=== PATIENT | female | born 1955 | race Caucasian/White ===

== ENCOUNTER 2020-07-16 19:11 | Emergency (ER) | payer MEDICARE, OTHER, SELFPAY ==
[2020-07-16 19:31] VITALS: BP 149/91; PULSE 98; RESP 19; TEMP 36.6; O2SAT 99; BMI 54.5
[2020-07-16 19:46] LABS: Apearance,Urine Clear (Clear); Bilirubin,Urine Negative (Negative); Blood, Urine Trace (Negative); Color,Urine Yellow (Yellow); Glucose,Urine (UA) Negative (Negative); Ketones,Urine Negative (Negative); PH,Urine 5.5 (5.0-8.5); Protein,Urine Trace (Negative); Specific Gravity, Urine 1.015 (1.005-1.030); Urobilinogen,Urine 0.2 EU/dl (0.2)
[2020-07-16 19:47] LABS: UTC Leukocyte Esterase,Urine 1+ (Negative); UTC Nitrate,Urine Positive (Negative)
--- NOTE | 2020-07-16 19:54 | HMH.EDUTC ---
[facility] [place] Disposition Clinical Impression: UTI (urinary tract infection) Qualifiers: Urinary tract infection type: site unspecified Hematuria presence: with hematuria Qualified Code(s): N39.0 - Urinary tract infection, site not specified Disposition: Home, Self-Care Condition on Discharge: Good Instructions: Urinary Tract Infection, DI for Urinary Tract Infection (UTI) Additional Instructions: Drink plenty of fluids. Take tylenol or ibuprofen for pain or fever. Take the medications as directed. Follow up with your regular doctor. GO TO THE ER FOR ANY WORSENING SYMPTOMS The pyridium will make your urine turn orange, this is an expected side effect. It will stain your clothes if it comes into contact with them. Follow up with the urologist (Dr. Bobo). I put in a referral but you need to call his office and make an appointment. Prescriptions: Ondansetron [Zofran 4mg ODT] 4 mg PO Q8HP PRN #20 tab.rapdis PRN Reason: Nausea Transmission Status: Received by [facility] Ciprofloxacin HCl [Cipro 500mg Tab] 500 mg PO BID 10 Days #20 tab Transmission Status: Received by [facility] Phenazopyridine HCl [Pyridium 200mg Tablet] 200 pow PO TID #6 tab Transmission Status: Received by [facility] Referrals: Ion Cm MD [Primary Care Provider] - Braulio Bobo MD [Staff Physician] - Time of Disposition: 20:34 Medical Decision Making - Medical Records Medical records reviewed: No: I reviewed the patient's medical records. - Aron Inquiry Pt receiving controlled substance: No Vital Signs: 07/16/20 19:31 07/16/20 20:23 Temperature 97.9 F 97.9 F Temperature Source Oral Pulse Rate 98 H Pulse Rate [Right Brachial] 98 H Respiratory Rate 19 19 Blood Pressure 149/91 H Blood Pressure [Right Arm] 149/91 H Blood Pressure Mean [Right Arm] 110 Blood Pressure Source [Right Arm] Automatic Cuff Blood Pressure Position [Right Arm] Sitting 02 Sat by Pulse Oximetry 99 Oxygen Delivery Method Room Air - Lab Data Lab results reviewed: Yes: I reviewed the patient's lab results. Lab Results 07/16/20 19:31: Urine Color Yellow, Urine Appearance Clear, Urine pH 5.5, Ur Specific [place] 1.015, Urine Protein Trace, Urine Glucose (UA) Negative, Urine Ketones Negative, Urine Blood Trace, Urine Nitrate Positive A, Urine Bilirubin Negative, Urine Urobilinogen 0.2, Ur Leukocyte Esterase 1+ A Orders (Tests/Meds): ED MEDICATIONS Discontinued Medications Generic Name Dose Route Start Last Admin Trade Name Jose A PRN Reason Stop Dose Admin Ceftriaxone Sodium 1 gm 07/16/20 19:59 07/16/20 20:13 Rocephin 1gm Vial IM 07/16/20 20:00 1 gm ONCE ONE Administration Protocol Lidocaine HCl 0 ml 07/16/20 19:59 07/16/20 20:13 Lidocaine 1% 10ml Mdv IM 07/16/20 20:00 2.1 ml ONCE ONE Administration Promethazine HCl 25 mg 07/16/20 20:08 07/16/20 20:13 Phenergan 25mg/Ml 1ml Vial IM 07/16/20 20:09 25 mg ONCE ONE Administration Sodium Chloride 25 ml 07/16/20 20:08 07/16/20 20:13 Sod Chlor 0.9% 25ml Bag IV 07/16/20 20:09 Not Given ONCE ONE ORDERS Category Date Time Status Urine Culture Stat Micro 07/16/20 19:30 Received [facility] [place] HPI - General Stated complaint: Vomiting, fever, chills Time Seen by Provider: 07/16/20 19:54 Mode of Arrival: Ambulatory Source of Information: Patient Limitations: No Limitations Description of Symptoms (Recalled from Triage Doc. by RN): PATIENT C/O UTI THAT SHE HAS HAD SINCE 05/29. STATES SHE HAS BEEN ON BOTH AUGMENTIN AND MICROBID BUT IT HAS NOT GOTTEN BETTER HEENT Symptoms (Recalled from RN notes): No Resp Symptoms (Recalled from RN notes): No Skin Symptoms (Recalled from RN notes): No MS Symptoms (Recalled from RN notes): No Functional Status (Recalled from RN notes): WNL - History of Present Illness Provider Complaint: She c/o dysuria and low back pain since this mornig. - Related Data Pre
[2020-07-16 20:23] VITALS: BP 149/91; PULSE 98; RESP 19; TEMP 36.6; O2SAT 99
== END 2020-07-16 20:50 | disposition home or self-care (01) ==
PROVIDERS: Emergency Provider Nurse Practitioner Family; PCP Family Medicine
DX: N30.00 Acute cystitis without hematuria (principal)
CPT/HCPCS: G0463; 81003; 87086; 87088; 87186; 96372; 99202

== ENCOUNTER → 2020-08-02 16:26 | Outpatient (CLI) | payer MEDICARE, OTHER, SELFPAY | PROVIDERS: Visit Provider Urology | DX: N39.0 Urinary tract infection, site not specified (principal) | CPT/HCPCS: 87086; 87088; 87186 ==

== ENCOUNTER → 2020-08-16 16:28 | Outpatient (CLI) | payer MEDICARE, OTHER, SELFPAY | PROVIDERS: Visit Provider Urology | DX: N39.0 Urinary tract infection, site not specified (principal) | CPT/HCPCS: 87086; 87088; 87186 ==

== ENCOUNTER 2023-07-21 21:12 | Inpatient (IN) | payer MEDICARE, OTHER, SELFPAY ==
[2023-07-21] VITALS (8 sets, daily range): BP systolic 138–162; BP diastolic 68–83; PULSE 88–100; RESP 18–20; TEMP 37.8–39.3; O2SAT 95–99; BMI 46.9
--- NOTE | 2023-07-21 21:39 | CT_ITS ---
PROCEDURE INFORMATION: Exam: CT Abdomen And Pelvis Without Contrast Exam date and time: 07/21/2023 9:57 PM Age: 68 years old Clinical indication: Abdominal pain; Additional info: Flank pain, urinary SX, sepsis TECHNIQUE: Imaging protocol: Computed tomography of the abdomen and pelvis without contrast. Radiation optimization: All CT scans at this facility use at least one of these dose optimization techniques: automated exposure control; mA and/or kV adjustment per patient size (includes targeted exams where dose is matched to clinical indication); or iterative reconstruction. REPORTING DATA: Count of CT and Cardiac NM exams in prior 12 months: This patient has received 0 known CTs and 0 known cardiac nuclear medicine studies in the 12 months prior to the current study. COMPARISON: CR CXR CHEST(2 VIEWS-NOT PORTABLE) 11/19/2016 3:54 PM FINDINGS: Liver: Normal. No mass. Gallbladder and bile ducts: Normal. No calcified stones. No ductal dilation. Pancreas: Normal. No ductal dilation. Spleen: Scattered calcified granulomas in the spleen. No splenomegaly. Adrenal glands: Normal. No mass. Kidneys and ureters: 3 calculi in the left renal pelvis measuring 3 mm, 8 mm, and 10 mm. No hydronephrosis. For additional left intrarenal calculi measuring 2 mm and 4 mm in diameter. 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 Punctate right intrarenal calculus without hydronephrosis. Stomach and bowel: Mild diffuse colonic diverticulosis. No dilated bowel loops. Previous gastric sleeve surgery. Small hiatal hernia. Appendix: No evidence of appendicitis. Intraperitoneal space: Unremarkable. No free air. No significant fluid collection. Vasculature: Mild aortoiliac atherosclerotic disease without aneurysm. Lymph nodes: Unremarkable. No enlarged lymph nodes. Urinary bladder: Unremarkable as visualized. Reproductive: Unremarkable as visualized. Bones/joints: Severe lumbar spine degenerative change. Grade 1 anterolisthesis of L4 over L5 secondary to facet arthropathy. Status post right total hip arthroplasty. [id number] degenerative change of the left hip and bilateral sacroiliac joints. Soft tissues: Small fat containing umbilical hernia. IMPRESSION: 1. There are 3 calculi in the left renal pelvis measuring between 3 mm and 10 mm in diameter. No hydronephrosis. 2. There are additional bilateral renal calyceal calculi. No ureteral calculi.
[2023-07-21 21:45] LABS: Microscopic, Urine URINE MICROSCOPIC (MICROSCOPIC)
[2023-07-21 21:55] LABS: Basophils % 0.3 % (0.1-2.0); Eosinophils # 0.3 K/mm3 (0.0-0.4); Eosinophils % 1.6 % (0.1-12.0); Hematocrit 46.4 % (37.0-47.0); Hemoglobin 14.8 g/dL (12.2-16.2); Lymphocytes % 5.9 % (10-50); Mean Corpuscular HGB Conc 31.8 g/dL (31.8-35.4); Mean Corpuscular Hemoglobin 30.5 pg (27.0-31.2); Mean Corpuscular Volume 96.1 fl (81-99); Mean Platelet Volume 9.6 fl (7.4-10.4); Monocytes # 0.8 K/mm3 (0.1-1.0); Monocytes % 4.8 % (1.7-9.3); Neutrophils % 87.4 % (37.0-80.0); Platelet Count 287 K/mm3 (142-424); Red Blood Count 4.83 M/mm3 (4.20-5.40); Red Cell Distribution Width 13.9 % (11.5-17.5)
[2023-07-21 21:57] LABS: MANUAL DIFFERENTIAL MANUAL DIFFERENTIAL (MANUAL DIFF)
[2023-07-21 21:58] LABS: Alanine Aminotransferase 24 U/L (12-78); Albumin Level 4.3 g/dl (3.5-5.0); Albumin/Globulin Ratio 1.3 (1.1-1.8); Alkaline Phosphatase 79 U/L (38-126); Anion Gap 14.5 mEq/L (5-15); Aspartate Amino Transferase 25 U/L (14-36); Bilirubin,Total 0.7 mg/dl (0.2-1.3); Blood Urea Nitrogen 23 mg/dl (7-17); Calcium 9.7 mg/dl (8.4-10.2); Carbon Dioxide 28 mmol/L (22.0-30.0); Chloride 99 mmol/L (98-107); Creatinine Clearance Estimated 50 mL/min (50-200); Estimated Glomerular Filt Rate 49 ml/min (>60); GFR (African American) 60 ML/MIN (>60); Globulin 3.4 g/dL (1.3-3.2); Glucose 105 mg/dl (74-100); Lactic Acid 1.5 mmol/L (0.7-2.1); Potassium 4.5 mmoL/L (3.5-5.1); Sodium 137 mmol/L (136-145); Total Protein,Serum 7.7 g/dl (6.3-8.2)
[2023-07-21 22:17] LABS: Appearance,Urine CLEAR (Clear); Bilirubin,Urine Negative (Negative); Blood, Urine TRACE-I (Negative); Color,Urine YELLOW (Yellow); Glucose,Urine (UA) Negative (Negative); Ketones,Urine Negative (Negative); Leukocyte Esterase,Urine 2+ (Negative); Nitrate,Urine POSITIVE (Negative); PH,Urine 6.5 (5.0-8.5); Protein,Urine 1+ (Negative); Urobilinogen,Urine 0.2 EU/dl (0.2)
[2023-07-21 22:27] LABS: Lymphocytes % 7 % (10-50); Monocytes % 2 % (2-9); Neutrophils % 91 % (42-76); Platelet Estimate Normal; RBC Morphology Normal; Total Cells Counted 100
[2023-07-21 22:34] LABS: Bacteria,Urine 2+ /lpf; RBC,Urine Occasional #/hpf (0-3); WBC,Urine 20-50 #/hpf (0-3)
--- NOTE | 2023-07-21 22:35 | HMH.EDGENADL ---
Discharge Plan Disposition Patient Disposition: Admitted Condition: Good Clinical Impressions Clinical Impression: Sepsis, Acute UTI, Bilateral renal stones Discharge ED Provider: Cris Retana General Adult HPI General Chief complaint: Urogenital-Female Stated complaint: poss UTI Time Seen by Provider: 07/21/23 21:25 Mode of Arrival: Wheelchair Source of Information: Patient Limitations: No Limitations Description of Symptoms (Recalled from ER Triage Doc. by RN): Possible UTI with flank pain, and headache History of Present Illness HPI narrative: This patient is a 68-year-old female who reports a history of urinary tract infections in the past as well as prior gastric sleeve surgery, hypertension, hyperlipidemia, and gout presenting to the emergency department for evaluation with concern for flank pain, nausea, vomiting, fevers, chills, and urinary pressure. She states this is been going on for multiple days now but acutely worsened today to the point where she was not able to stand because she was so weak. She states she is concerned that she has a urinary tract infection. Her temperature at home was 104 ?F. She took Tylenol prior to arrival. She also complains of headache associated with this. She denies any other concerns at this time. Nothing makes her symptoms better or worse. Related Data Home Medications Medication Instructions Recorded Confirmed allopurinol 300 mg tablet 300 mg PO DAILY 08/02/20 08/16/20 aspirin 81 mg tablet,delayed 81 mg PO DAILY 08/02/20 08/16/20 release hydrochlorothiazide 50 mg tablet 50 mg PO DAILY 08/02/20 08/16/20 levothyroxine 125 mcg tablet 125 mcg PO DAILY 08/02/20 08/16/20 meloxicam 15 mg tablet 15 mg PO DAILY 08/02/20 08/16/20 metoprolol succinate 50 mg 50 mg PO DAILY 08/02/20 08/16/20 tablet,extended release 24 hr potassium chloride 20 mEq meq PO 08/02/20 08/16/20 tablet,extended release(part/cryst) sertraline 25 mg tablet mg PO DAILY 08/02/20 08/16/20 spironolactone 50 mg tablet 50 mg PO DAILY 08/02/20 08/16/20 verapamil 240 mg tablet,extended mg PO 08/02/20 08/16/20 release Previous Rx's Medication Instructions Recorded ciprofloxacin HCl 500 mg tablet 500 mg PO BID 10 days #20 tabs 07/16/20 ondansetron 4 mg disintegrating 4 mg PO Q8HP PRN Nausea ##20 07/16/20 tablet phenazopyridine 200 mg tablet 200 pow PO TID #6 tabs 07/16/20 Allergies Allergy/AdvReac Type Severity Reaction Status Date / Time sulfisomidine [SULFISOMIDINE] Allergy Mild Verified 08/16/20 15:22 Sulfa (Sulfonamide Allergy Verified 08/16/20 15:22 Antibiotics) [facility] Disclaimer: The information contained in this section may have been updated after the patient was seen, as this information can be updated by other users. Social History Smoking Status: Never smoker alcohol intake: never substance use type: denies use current occupational status: other Travel in the last 8 weeks: None household members: spouse housing: house ROS Obtained: Yes All systems reviewed & no additional complaints except as documented Physical Exam General General appearance: alert and obese Head Head exam: atraumatic and normocephalic Eye Eye exam: Present normal appearance, PERRL and EOMI ENT ENT exam: Present normal exam, normal oropharynx, mucous membranes dry and normal external ear exam Neck Neck exam: Present normal inspection, full ROM and trachea midline; Absent tenderness Chest Chest inspection: Present normal inspection and symmetric chest wall rise; Absent tenderness Respiratory Respiratory exam: Present normal lung sounds bilaterally; Absent respiratory distress, wheezes, stridor or accessory muscle use Cardiovascular Cardiovascular exam: Present normal rhythm and tachycardia Abdominal Exam Abdominal exam: Present soft and tenderness (Suprapubic); Absent distention, guarding, rebound or rigidity Extremities
--- NOTE | 2023-07-21 23:13 | PC.NURSE ---
PATIENT ADMITTED OBSERVATION TO 204 DX OF UTI AND SEPSIS TO SERVICE OF HOSPITALIST.
--- NOTE | 2023-07-21 23:24 | PC.NURSE ---
Hospitalist in with patient
--- NOTE | 2023-07-21 23:40 | EXP.HP ---
History of Present Illness *Admission Date: 07/21/23 *Reason for visit:: UTI *History of present illness: This is a 68-year-old female morbidly obese with gastric sleeve surgery, hypertension, hyperlipidemia, and gout and recurrent history of UTI, presenting to the emergency department for evaluation with concern for flank pain, nausea, vomiting, fevers, chills, and urinary pressure. She stated this is been going on for multiple days now but acutely worsened today to the point where she was not able to stand because she was so weak. Her temperature at home was 104 ?F. She took Tylenol prior to arrival. She also complained of headache associated with this. She denied any other concerns at this time. Admitted for treatment and management. [facility] Disclaimer: The information contained in this section may have been updated after the patient was seen, as this information can be updated by other users. Surgical History (Updated 07/22/23 @ 01:21 by Caleb Pina APRN) Hx of gastric bypass Social History Smoking Status: Never smoker alcohol intake: never substance use type: denies use current occupational status: other Travel in the last 8 weeks: None household members: spouse housing: house Review of Systems Review of Systems Review of systems:: pertinent systems reviewed and negative unless documented below Meds Home Medications and Allergies Home Medications Medication Instructions Recorded Confirmed Type ciprofloxacin HCl 500 mg tablet 500 mg PO BID 10 days #20 tabs 07/16/20 08/16/20 Rx ondansetron 4 mg disintegrating 4 mg PO Q8HP PRN Nausea ##20 07/16/20 08/16/20 Rx tablet phenazopyridine 200 mg tablet 200 pow PO TID #6 tabs 07/16/20 08/16/20 Rx allopurinol 300 mg tablet 300 mg PO DAILY 08/02/20 08/16/20 History aspirin 81 mg tablet,delayed 81 mg PO DAILY 08/02/20 08/16/20 History release hydrochlorothiazide 50 mg tablet 50 mg PO DAILY 08/02/20 08/16/20 History levothyroxine 125 mcg tablet 125 mcg PO DAILY 08/02/20 08/16/20 History meloxicam 15 mg tablet 15 mg PO DAILY 08/02/20 08/16/20 History metoprolol succinate 50 mg 50 mg PO DAILY 08/02/20 08/16/20 History tablet,extended release 24 hr potassium chloride 20 mEq meq PO 08/02/20 08/16/20 History tablet,extended release(part/cryst) sertraline 25 mg tablet mg PO DAILY 08/02/20 08/16/20 History spironolactone 50 mg tablet 50 mg PO DAILY 08/02/20 08/16/20 History allopurinol 300 mg tablet 300 mg PO DAILY gout 07/22/23 History levothyroxine 125 mcg tablet 125 mcg PO DAILY hypothyroid 07/22/23 History (Synthroid) metoprolol succinate 50 mg 50 mg PO DAILY Hypertension 07/22/23 History tablet,extended release 24 hr omeprazole 20 mg capsule,delayed 20 mg PO DAILY Acid Reflux 07/22/23 History release spironolactone 50 mg tablet 50 mg PO DAILY Hypertension 07/22/23 History verapamil 240 mg tablet,extended 240 mg PO DAILY Hypertension 07/22/23 History release New Prescriptions to Start Prescriptions: Allergies Allergy/AdvReac Type Severity Reaction Status Date / Time sulfisomidine [SULFISOMIDINE] Allergy Mild Verified 08/16/20 15:22 Sulfa (Sulfonamide Allergy Verified 08/16/20 15:22 Antibiotics) Exam Data for Last 24 hours Vital signs and Labs for Last 24 Hours: Temp Pulse Resp BP Pulse Ox O2 Del Method 101.8 F H 92 H 18 162/73 H 97 Room Air 07/21/23 23:35 07/21/23 23:35 07/21/23 23:35 07/21/23 23:35 07/21/23 23:30 07/21/23 23:35 Laboratory Results - last 24 hr 07/21/23 21:35: WBC 16.0 H, RBC 4.83, Hgb 14.8, Hct 46.4, MCV 96.1, MCH 30.5, MCHC 31.8, RDW 13.9, Plt Count 287, MPV 9.6, Neut % (Auto) 87.4 H, Lymph % (Auto) 5.9 L, [place] % (Auto) 4.8, Eos % (Auto) 1.6, Baso % (Auto) 0.3, Neut # (Auto) 14.0 H, Lymph # (Auto) 1.0, [place] # (Auto) 0.8, Eos # (Auto) 0.3, Baso # (Auto) 0.0, Total Counted 100, Neutrophils % (Manual) 91 H, Lymphocyt
--- NOTE | 2023-07-21 23:45 | PC.NURSE ---
Patient arrived to floor via wheelchair at 23:45.
[2023-07-22] VITALS (8 sets, daily range): BP systolic 137–154; BP diastolic 62–107; PULSE 82–95; RESP 17–19; TEMP 36.8–39; O2SAT 95–98; BMI 46.3; BMI 46.9
--- NOTE | 2023-07-22 05:23 | PC.NURSE ---
Pt is a&ox4. room air. received an iv by US in right forearm. IV abx and fluids infusing. Pt has been febrile through the night but temp has trended down with prn tylenol. complaints of headache, prn med given. voided multiple times through the night.
[2023-07-22 06:26] LABS: Basophils # 0.1 K/mm3 (0-0.2); Basophils % 0.3 % (0.1-2.0); Eosinophils # 0.1 K/mm3 (0.0-0.4); Eosinophils % 0.8 % (0.1-12.0); Hematocrit 42.4 % (37.0-47.0); Hemoglobin 13.4 g/dL (12.2-16.2); Lymphocytes # 1.2 K/mm3 (0.7-4.5); Lymphocytes % 7.2 % (10-50); Mean Corpuscular HGB Conc 31.7 g/dL (31.8-35.4); Mean Corpuscular Hemoglobin 30.8 pg (27.0-31.2); Mean Corpuscular Volume 97.2 fl (81-99); Mean Platelet Volume 9.5 fl (7.4-10.4); Monocytes # 1.1 K/mm3 (0.1-1.0); Monocytes % 6.6 % (1.7-9.3); Neutrophils # 13.9 K/mm3 (1.8-7.8); Neutrophils % 85.1 % (37.0-80.0); Platelet Count 241 K/mm3 (142-424); Red Blood Count 4.36 M/mm3 (4.20-5.40); White Blood Count 16.3 K/mm3 (4.8-10.8)
[2023-07-22 06:33] LABS: MANUAL DIFFERENTIAL MANUAL DIFFERENTIAL (MANUAL DIFF)
[2023-07-22 06:34] LABS: Alanine Aminotransferase 20 U/L (12-78); Albumin Level 3.5 g/dl (3.5-5.0); Albumin/Globulin Ratio 1.2 (1.1-1.8); Alkaline Phosphatase 59 U/L (38-126); Aspartate Amino Transferase 21 U/L (14-36); Bilirubin,Total 0.8 mg/dl (0.2-1.3); Blood Urea Nitrogen 20 mg/dl (7-17); Calcium 8.9 mg/dl (8.4-10.2); Carbon Dioxide 26 mmol/L (22.0-30.0); Chloride 102 mmol/L (98-107); Chol/HDL Ratio 6.9 (1-3.5); Cholesterol 233 mg/dl (140-200); Creatinine Clearance Estimated 49 mL/min (50-200); Estimated Glomerular Filt Rate 49 ml/min (>60); GFR (African American) 60 ML/MIN (>60); Glucose 110 mg/dl (74-100); HDL Cholesterol 34 mg/dl (40-60); Magnesium 1.2 mg/dl (1.6-2.3); Sodium 137 mmol/L (136-145); Total Protein,Serum 6.5 g/dl (6.3-8.2); Triglycerides 232 mg/dl (30-150); VLDL Cholesterol 46 mg/dL (0-40)
[2023-07-22 06:45] LABS: Direct LDL Cholesterol 92.15 mg/dL (100-129)
[2023-07-22 06:59] LABS: Lymphocytes % 4 % (10-50); Monocytes % 8 % (2-9); Neutrophils % 85 % (42-76); Total Cells Counted 100
[2023-07-22 07:01] LABS: Hypochromasia 1+; Platelet Estimate Normal
--- NOTE | 2023-07-22 07:17 | HMH.PHAINT1 ---
Pharmacy Intervention Comments: Medication history complete, medications verified with fill history. Of note, patient has not filled a majority of her medications since 03/03/23. - Ebonie Prabhakar, PharmD Candidate 2023
--- NOTE | 2023-07-22 08:15 | PC.NURSE ---
Patient nauseated and would like to wait to take morning meds. Hitesh administed. Patient notified of need to bring home medications in as obv patient. States she will try to have someone bring them
--- NOTE | 2023-07-22 08:21 | EXP.PHA.CONS ---
Pharmacy Consult Date: 07/22/23 Time: 08:21 Referring provider: DR. DAIGLE Reason for Consult:: VANCOMYCIN DOSING Allergies Allergy/AdvReac Type Severity Reaction Status Date / Time sulfisomidine [SULFISOMIDINE] Allergy Mild Verified 08/16/20 15:22 Sulfa (Sulfonamide Allergy Verified 08/16/20 15:22 Antibiotics) Home Medications Medication Instructions Recorded Confirmed Type metoprolol succinate 50 mg 50 mg PO DAILY High Blood Pressure 08/02/20 07/22/23 History tablet,extended release 24 hr allopurinol 300 mg tablet 300 mg PO DAILY gout 07/22/23 07/22/23 History levothyroxine 125 mcg tablet 125 mcg PO DAILY Thyroid 07/22/23 07/22/23 History (Synthroid) omeprazole 20 mg capsule,delayed 20 mg PO DAILY Acid Reflux 07/22/23 07/22/23 History release spironolactone 50 mg tablet 50 mg PO DAILY Fluid 07/22/23 07/22/23 History verapamil 240 mg tablet,extended 240 mg PO DAILY High Blood Pressure 07/22/23 07/22/23 History release New Prescriptions to Start Prescriptions: Height: 1.75 m Weight: 143.789 kg Laboratory Results:: Laboratory Results - last 24 hr 07/21/23 21:35: WBC 16.0 H, RBC 4.83, Hgb 14.8, Hct 46.4, MCV 96.1, MCH 30.5, MCHC 31.8, RDW 13.9, Plt Count 287, MPV 9.6, Neut % (Auto) 87.4 H, Lymph % (Auto) 5.9 L, [place] % (Auto) 4.8, Eos % (Auto) 1.6, Baso % (Auto) 0.3, Neut # (Auto) 14.0 H, Lymph # (Auto) 1.0, [place] # (Auto) 0.8, Eos # (Auto) 0.3, Baso # (Auto) 0.0, Total Counted 100, Neutrophils % (Manual) 91 H, Lymphocytes % (Manual) 7 L, Monocytes % (Manual) 2, Platelet Estimate Normal, RBC Morphology Normal, Sodium 137, Potassium 4.5, Chloride 99, Carbon Dioxide 28, Anion Gap 14.5, BUN 23 H, Creatinine 1.10 H, Estimated Creat Clear 50, Estimated GFR 49 L, Est GFR ( Amer) 60, Glucose 105 H, Lactate 1.5, Calcium 9.7, Total Bilirubin 0.7, AST 25, ALT 24, Alkaline Phosphatase 79, Total Protein 7.7, Albumin 4.3, Globulin 3.4 H, Albumin/Globulin Ratio 1.3, Urine Color Yellow, Urine Appearance Clear, Urine pH 6.5, Ur Specific [place] 1.020, Urine Protein 1+, Urine Glucose (UA) Negative, Urine Ketones Negative, Urine Blood Trace-i, Urine Nitrate Positive, Urine Bilirubin Negative, Urine Urobilinogen 0.2, Ur Leukocyte Esterase 2+ A, Urine RBC Occasional, Urine WBC 20-50, Ur Squamous Epith Cells 5-10, Urine Bacteria 2+ 07/22/23 05:50: WBC 16.3 H, RBC 4.36, Hgb 13.4, Hct 42.4, MCV 97.2, MCH 30.8, MCHC 31.7 L, RDW 14.0, Plt Count 241, MPV 9.5, Neut % (Auto) 85.1 H, Lymph % (Auto) 7.2 L, [place] % (Auto) 6.6, Eos % (Auto) 0.8, Baso % (Auto) 0.3, Neut # (Auto) 13.9 H, Lymph # (Auto) 1.2, [place] # (Auto) 1.1 H, Eos # (Auto) 0.1, Baso # (Auto) 0.1, Total Counted 100, Neutrophils % (Manual) 85 H, Band Neutrophils % 3.0, Lymphocytes % (Manual) 4 L, Monocytes % (Manual) 8, Platelet Estimate Normal, Hypochromasia 1+, Sodium 137, Potassium 4.0, Chloride 102, Carbon Dioxide 26, Anion Gap 13.0, BUN 20 H, Creatinine 1.10 H, Estimated Creat Clear 49, Estimated GFR 49 L, Est GFR ( Amer) 60, Glucose 110 H, Calcium 8.9, Magnesium 1.2 L, Total Bilirubin 0.8, AST 21, ALT 20, Alkaline Phosphatase 59, Total Protein 6.5, Albumin 3.5 D, Globulin 3.0, Albumin/Globulin Ratio 1.2, Triglycerides 232 H, Cholesterol 233 H, LDL Cholesterol Direct 92.15 L, VLDL Cholesterol 46 H, HDL Cholesterol 34 L, Cholesterol/HDL Ratio 6.9 H Assessment and Plan Assessment and plan all Dx Assessment and Plan for all problems:: Pharmacokinetic dosing service Objective: Patient: Floor: Age: 68 yo Serum creatinine: 1.10 mg/dL Height: 68.9 Inches Weight (kg): 144 Assessment: IBW (kg): 65.97 Dosing wt(kg): 144 Estimated Creatinine clearance (ml/min): 50.3 CRCL method: Cockcroft and Gault using ibw(default). Drug selected: Vancomycin Loading dose (mg): Vd (liters): 115.2 (factor used: 0.8 L/kg) Osorio (hr-1): 0.046 Half li
--- NOTE | 2023-07-22 08:41 | PC.NURSE ---
Recheck nausea. Patient assessed and found to be sleeping with no signs of distress
--- NOTE | 2023-07-22 08:59 | EXP.PN ---
Subjective *Date: 07/22/23 *Time: 12:41 Interval history: Patient is seen and examined today. I am accompanied by nursing staff. The patient reports that she lives in [place] with her Ryan lopez 50 years. She is normally independent of activities of daily living including [facility], maneuvering 4 steps to her one-story home and driving. She was unaware of kidney stones and to her ED presentation last night. She normally sees Dr. Cm in [facility] for primary care. She is tolerating her IV antibiotic therapy. She reports nausea. She reports no abdominal or flank pain. Nursing staff report that she remains afebrile with stable vital signs and saturating appropriately on room air. Exam Data for Last 24 hours Vital signs and Labs for Last 24 Hours: Temp Pulse Resp BP Pulse Ox O2 Del Method 98.3 F 85 19 145/88 H 96 Room Air 07/22/23 08:00 07/22/23 08:00 07/22/23 08:00 07/22/23 08:00 07/22/23 08:03 07/22/23 08:03 Laboratory Results - last 24 hr 07/21/23 21:35: WBC 16.0 H, RBC 4.83, Hgb 14.8, Hct 46.4, MCV 96.1, MCH 30.5, MCHC 31.8, RDW 13.9, Plt Count 287, MPV 9.6, Neut % (Auto) 87.4 H, Lymph % (Auto) 5.9 L, [place] % (Auto) 4.8, Eos % (Auto) 1.6, Baso % (Auto) 0.3, Neut # (Auto) 14.0 H, Lymph # (Auto) 1.0, [place] # (Auto) 0.8, Eos # (Auto) 0.3, Baso # (Auto) 0.0, Total Counted 100, Neutrophils % (Manual) 91 H, Lymphocytes % (Manual) 7 L, Monocytes % (Manual) 2, Platelet Estimate Normal, RBC Morphology Normal, Sodium 137, Potassium 4.5, Chloride 99, Carbon Dioxide 28, Anion Gap 14.5, BUN 23 H, Creatinine 1.10 H, Estimated Creat Clear 50, Estimated GFR 49 L, Est GFR ( Amer) 60, Glucose 105 H, Lactate 1.5, Calcium 9.7, Total Bilirubin 0.7, AST 25, ALT 24, Alkaline Phosphatase 79, Total Protein 7.7, Albumin 4.3, Globulin 3.4 H, Albumin/Globulin Ratio 1.3, Urine Color Yellow, Urine Appearance Clear, Urine pH 6.5, Ur Specific [place] 1.020, Urine Protein 1+, Urine Glucose (UA) Negative, Urine Ketones Negative, Urine Blood Trace-i, Urine Nitrate Positive, Urine Bilirubin Negative, Urine Urobilinogen 0.2, Ur Leukocyte Esterase 2+ A, Urine RBC Occasional, Urine WBC 20-50, Ur Squamous Epith Cells 5-10, Urine Bacteria 2+ 07/22/23 05:50: WBC 16.3 H, RBC 4.36, Hgb 13.4, Hct 42.4, MCV 97.2, MCH 30.8, MCHC 31.7 L, RDW 14.0, Plt Count 241, MPV 9.5, Neut % (Auto) 85.1 H, Lymph % (Auto) 7.2 L, [place] % (Auto) 6.6, Eos % (Auto) 0.8, Baso % (Auto) 0.3, Neut # (Auto) 13.9 H, Lymph # (Auto) 1.2, [place] # (Auto) 1.1 H, Eos # (Auto) 0.1, Baso # (Auto) 0.1, Total Counted 100, Neutrophils % (Manual) 85 H, Band Neutrophils % 3.0, Lymphocytes % (Manual) 4 L, Monocytes % (Manual) 8, Platelet Estimate Normal, Hypochromasia 1+, Sodium 137, Potassium 4.0, Chloride 102, Carbon Dioxide 26, Anion Gap 13.0, BUN 20 H, Creatinine 1.10 H, Estimated Creat Clear 49, Estimated GFR 49 L, Est GFR ( Amer) 60, Glucose 110 H, Calcium 8.9, Magnesium 1.2 L, Total Bilirubin 0.8, AST 21, ALT 20, Alkaline Phosphatase 59, Total Protein 6.5, Albumin 3.5 D, Globulin 3.0, Albumin/Globulin Ratio 1.2, Triglycerides 232 H, Cholesterol 233 H, LDL Cholesterol Direct 92.15 L, VLDL Cholesterol 46 H, HDL Cholesterol 34 L, Cholesterol/HDL Ratio 6.9 H I & O for Last 24 hours: Intake & Output 09/11/07/20/23 07/21/23 07/22/23 23:59 23:59 23:59 23:59 Intake Total 740 / 740 Output Total 0 / 0 Balance 740 / 740 Weight 144.242 kg 143.789 kg Constitutional Constitutional: no acute distress, morbidly obese and cooperative *Routine HEENT Exam Head: Present normocephalic *Routine Neck Exam Neck: Present supple and trachea midline *Routine Respiratory Exam Respiratory: Present CTA bilaterally, normal respiratory effort and symmetric chest movement *Routine Cardiovascular Exam Cardiovascular: Present RRR *Routine Abdominal Exam Abdominal: Present soft and normoactive bowel sounds *Routine Extremities Exam Extremities: Present full ROM *Routin
--- NOTE | 2023-07-22 16:13 | PC.NURSE ---
Patient alert and oriented. On room air. VSS. Tylenol for low grade fever/chills. Zofran administered one time with improvement of symptoms. Up with 1 and FWW to BR for voids and BM. IV and antibiotics infusing per orders.
[2023-07-23] VITALS: BP 125/64; PULSE 81; RESP 18; TEMP 38.2; O2SAT 94
[2023-07-23 04:00] VITALS: BP 112/47; PULSE 72; RESP 18; TEMP 37.5; O2SAT 95; BMI 33.0
--- NOTE | 2023-07-23 04:06 | PC.NURSE ---
patient slept well through the night. saturating well on room air. febrile through the night, prn meds given. iv fluids infusing.
[2023-07-23 07:02] LABS: Basophils % 0.1 % (0.1-2.0); Eosinophils # 0.1 K/mm3 (0.0-0.4); Eosinophils % 0.8 % (0.1-12.0); Hematocrit 39.7 % (37.0-47.0); Hemoglobin 12.3 g/dL (12.2-16.2); Lymphocytes # 1.6 K/mm3 (0.7-4.5); Lymphocytes % 10.6 % (10-50); Mean Corpuscular Hemoglobin 30.5 pg (27.0-31.2); Mean Corpuscular Volume 98.1 fl (81-99); Monocytes % 6.5 % (1.7-9.3); Neutrophils # 12.5 K/mm3 (1.8-7.8); Platelet Count 202 K/mm3 (142-424); Red Blood Count 4.04 M/mm3 (4.20-5.40); White Blood Count 15.2 K/mm3 (4.8-10.8)
[2023-07-23 07:05] LABS: MANUAL DIFFERENTIAL MANUAL DIFFERENTIAL (MANUAL DIFF)
[2023-07-23 07:11] LABS: Anion Gap 10.8 mEq/L (5-15); Blood Urea Nitrogen 16 mg/dl (7-17); Calcium 8.2 mg/dl (8.4-10.2); Carbon Dioxide 24 mmol/L (22.0-30.0); Chloride 107 mmol/L (98-107); Creatinine Clearance Estimated 77 mL/min (50-200); Estimated Glomerular Filt Rate 49 ml/min (>60); GFR (African American) 60 ML/MIN (>60); Glucose 117 mg/dl (74-100); Magnesium 1.6 mg/dl (1.6-2.3); Potassium 3.8 mmoL/L (3.5-5.1); Sodium 138 mmol/L (136-145)
[2023-07-23 07:27] LABS: Procalcitonin 0.356 ng/mL (0.0-2.0)
[2023-07-23 07:53] LABS: Lymphocytes % 10 % (10-50); Monocytes % 13 % (2-9); Neutrophils % 77 % (42-76); Platelet Estimate Normal; RBC Morphology Normal; Total Cells Counted 100
[2023-07-23 08:00] VITALS: BP 123/61; PULSE 65; RESP 18; TEMP 37.2; O2SAT 94
--- NOTE | 2023-07-23 08:09 | EXP.PN ---
Subjective *Date: 07/23/23 *Time: 10:26 Interval history: Patient seen and examined at bedside today. I am accompanied by nursing staff. Nursing staff reported Tmax 100.7 with stable heart rates and blood pressures. Her oxygen saturations are appropriate on room air. CBC this morning identifies ongoing leukocytosis with stable hemoglobin and normal platelets. Her procalcitonin is normal. Her electrolytes are normal with stable creatinine 1.1. Glucose trend is under 125. Magnesium has improved to 1.6. She is tolerating her IV antibiotic with no adverse events. Exam Data for Last 24 hours Vital signs and Labs for Last 24 Hours: Temp Pulse Resp BP Pulse Ox O2 Del Method 99.5 F 72 18 112/47 L 95 Room Air 07/23/23 04:00 07/23/23 04:00 07/23/23 04:00 07/23/23 04:00 07/23/23 04:00 07/23/23 07:52 Laboratory Results - last 24 hr 07/23/23 06:43: WBC 15.2 H, RBC 4.04 L, Hgb 12.3, Hct 39.7, MCV 98.1, MCH 30.5, MCHC 31.0 L, RDW 14.0, Plt Count 202, MPV 9.0, Neut % (Auto) 82.0 H, Lymph % (Auto) 10.6, [place] % (Auto) 6.5, Eos % (Auto) 0.8, Baso % (Auto) 0.1, Neut # (Auto) 12.5 H, Lymph # (Auto) 1.6, [place] # (Auto) 1.0, Eos # (Auto) 0.1, Baso # (Auto) 0.0, Total Counted 100, Neutrophils % (Manual) 77 H, Lymphocytes % (Manual) 10, Monocytes % (Manual) 13 H, Platelet Estimate Normal, RBC Morphology Normal, Sodium 138, Potassium 3.8, Chloride 107, Carbon Dioxide 24, Anion Gap 10.8, BUN 16, Creatinine 1.10 H, Estimated Creat Clear 77, Estimated GFR 49 L, Est GFR ( Amer) 60, Glucose 117 H, Calcium 8.2 L, Magnesium 1.6 D, Procalcitonin 0.356 I & O for Last 24 hours: Intake & Output 07/20/23 07/21/23 07/22/23 07/23/23 23:59 23:59 23:59 23:59 Intake Total 2830 / 3430 2141 Output Total 0 / 0 0 / 0 Balance 2830 / 3430 2141 Weight 144.242 kg 143.789 kg 101.378 kg Microbiology Reports for the Last 24 Hours: Microbiology 07/21/23 21:35 Urine,Clean Catch Urine Culture - Preliminary NO GROWTH AFTER 24 HOURS Constitutional Constitutional: no acute distress, morbidly obese and cooperative *Routine HEENT Exam Head: Present normocephalic *Routine Neck Exam Neck: Present supple and trachea midline *Routine Respiratory Exam Respiratory: Present CTA bilaterally, normal respiratory effort and symmetric chest movement *Routine Cardiovascular Exam Cardiovascular: Present RRR *Routine Abdominal Exam Abdominal: Present soft and normoactive bowel sounds *Routine Extremities Exam Extremities: Present full ROM *Routine Skin Exam Skin: Present intact *Routine Neurological Exam Neurological: Present alert, oriented X3, moving all extremities and normal speech Routine Psychiatric Exam Psychiatric: Present normal affect, normal thought process, cooperative, good insight and good judgment Assessment and Plan *Assessment and plan (1) Sepsis without acute organ dysfunction: Status: Acute Qualifiers: Sepsis type: sepsis due to unspecified organism Qualified Code(s): A41.9 - Sepsis, unspecified organism Category: Medical Code(s): A41.9 - Sepsis, unspecified organism (2) UTI (urinary tract infection): Status: Acute Qualifiers: Hematuria presence: with hematuria Urinary tract infection type: site unspecified Qualified Code(s): N39.0 - Urinary tract infection, site not specified; R31.9 - Hematuria, unspecified Category: Medical Code(s): N39.0 - Urinary tract infection, site not specified (3) KAYLEN (acute kidney injury): Status: Acute Category: Medical Code(s): N17.9 - Acute kidney failure, unspecified (4) Bilateral renal stones: Status: Acute Category: Medical Code(s): N20.0 - Calculus of kidney (5) HTN (hypertension): Status: Acute Qualifiers: Hypertension type: unspecified Qualified Code(s): I10 - Essential (primary) hypertension Category:
[2023-07-23 12:00] VITALS: BP 137/61; PULSE 66; RESP 18; TEMP 37.1; O2SAT 96
[2023-07-23 13:07] VITALS: BMI 33.0
[2023-07-23 16:00] VITALS: BP 131/68; PULSE 63; RESP 18; TEMP 36.6; O2SAT 97
--- NOTE | 2023-07-23 17:00 | PC.NURSE ---
Patient alert and oriented. VSS. Up to BR with SBA for voids and BM's. Denies pain. IV fluids and ABX infused per orders. Patient states she is feeling much better today.
[2023-07-23 20:00] VITALS: BP 157/75; PULSE 70; RESP 22; TEMP 36.8; O2SAT 96
[2023-07-24] VITALS: BP 126/69; PULSE 61; RESP 18; TEMP 37.2; O2SAT 100
[2023-07-24 04:00] VITALS: BP 124/62; PULSE 61; RESP 18; TEMP 36.9; O2SAT 96; BMI 47.4
--- NOTE | 2023-07-24 05:01 | PC.NURSE ---
patient slept well through the night. saturating well on room air. afebrile. no complaints of pain. receiving iv fluids. good uop.
[2023-07-24 07:36] VITALS: BP 113/64; PULSE 62; RESP 17; TEMP 37.2; O2SAT 95
[2023-07-24 07:44] LABS: Basophils % 0.3 % (0.1-2.0); Eosinophils # 0.2 K/mm3 (0.0-0.4); Eosinophils % 2.4 % (0.1-12.0); Hematocrit 39.9 % (37.0-47.0); Hemoglobin 12.3 g/dL (12.2-16.2); Lymphocytes # 1.9 K/mm3 (0.7-4.5); Lymphocytes % 18.6 % (10-50); Mean Corpuscular HGB Conc 30.7 g/dL (31.8-35.4); Mean Corpuscular Hemoglobin 30.4 pg (27.0-31.2); Mean Platelet Volume 9.5 fl (7.4-10.4); Monocytes # 0.7 K/mm3 (0.1-1.0); Neutrophils # 7.3 K/mm3 (1.8-7.8); Neutrophils % 71.8 % (37.0-80.0); Platelet Count 222 K/mm3 (142-424); Red Blood Count 4.03 M/mm3 (4.20-5.40); Red Cell Distribution Width 13.8 % (11.5-17.5); White Blood Count 10.2 K/mm3 (4.8-10.8)
[2023-07-24 07:57] LABS: Anion Gap 10.8 mEq/L (5-15); Blood Urea Nitrogen 15 mg/dl (7-17); Calcium 8.2 mg/dl (8.4-10.2); Carbon Dioxide 26 mmol/L (22.0-30.0); Chloride 108 mmol/L (98-107); Creatinine Clearance Estimated 54 mL/min (50-200); Estimated Glomerular Filt Rate 62 ml/min (>60); GFR (African American) 75 ML/MIN (>60); Glucose 86 mg/dl (74-100); Magnesium 1.8 mg/dl (1.6-2.3); Potassium 3.8 mmoL/L (3.5-5.1); Sodium 141 mmol/L (136-145)
--- NOTE | 2023-07-24 08:25 | EXP.DC.SUM ---
General Admission date:: 07/21/23 HPI HPI HPI: This is a 68-year-old female morbidly obese with gastric sleeve surgery, hypertension, hyperlipidemia, and gout and recurrent history of UTI, presenting to the emergency department for evaluation with concern for flank pain, nausea, vomiting, fevers, chills, and urinary pressure. She stated this is been going on for multiple days now but acutely worsened today to the point where she was not able to stand because she was so weak. Her temperature at home was 104 ?F. She took Tylenol prior to arrival. She also complained of headache associated with this. She denied any other concerns at this time. Admitted for treatment and management. Hospital Course Hospital Course Hospital Course: The patient was admitted from the emergency department to the medical floor with IV fluid resuscitation. She was started on broad-spectrum IV antibiotic therapy with blood and urine cultures acquired in the ED. Her blood and urine cultures identify no growth to date. Her labs and inflammatory markers were trended. Problems addressed as follows: Sepsis without septic shock secondary to UTI, POA Tachycardia, tachypnea, leukocytosis, source identified Telemetry monitoring IV fluid resuscitation with normalized lactic acid Urine culture no growth to date Blood cultures no growth to date Trending labs and inflammatory markers with improvement noted IV antibiotic therapy transition to p.o. on discharge UTI IV fluid resuscitation Urinalysis reviewed Urine culture no growth to date IV Rocephin transition to Suprax 400 mg daily for 5 days on discharge Bilateral kidney stones IV fluid resuscitation Alpha-natalia therapy CT abdomen without reviewed identified bilateral kidney stones with no obstruction Outpatient urology follow-up Hypertension Routine blood pressure monitoring Beta-natalia therapy Calcium channel natalia therapy Aldosterone antagonist Hypothyroidism Levothyroxine replacement therapy Gout Allopurinol therapy BMI 47 Nutritional education History of gastric bypass Calorie appropriate diet Complicates all aspects of care The patient identified improvement and inquired about discharge home. I spent 35 minutes in [id number] time with the patient and nursing staff concerning the discharge process. We discussed the admitting diagnoses and hospital course. We discussed identified improvement and the patient's desire to be discharged. We reviewed inpatient studies and imaging. The patient voiced understanding on the importance of follow-up with her primary care provider and urologist. The patient plans to be compliant with the medication regimen prescribed and follow-up appointments. She understands that she can return to the emergency department with any sudden changes or concerns. Exam Data for Last 24 hours Vital signs and Labs for Last 24 Hours: Temp Pulse Resp BP Pulse Ox O2 Del Method 99.0 F 62 17 113/64 95 Room Air 07/24/23 07:36 07/24/23 07:36 07/24/23 07:36 07/24/23 07:36 07/24/23 07:36 07/24/23 07:36 Laboratory Results - last 24 hr 07/24/23 06:29: WBC 10.2 D, RBC 4.03 L, Hgb 12.3, Hct 39.9, MCV 99.0, MCH 30.4, MCHC 30.7 L, RDW 13.8, Plt Count 222, MPV 9.5, Neut % (Auto) 71.8, Lymph % (Auto) 18.6, [place] % (Auto) 7.0, Eos % (Auto) 2.4, Baso % (Auto) 0.3, Neut # (Auto) 7.3, Lymph # (Auto) 1.9, [place] # (Auto) 0.7, Eos # (Auto) 0.2, Baso # (Auto) 0.0, Sodium 141, Potassium 3.8, Chloride 108 H, Carbon Dioxide 26, Anion Gap 10.8, BUN 15, Creatinine 0.90, Estimated Creat Clear 54, Estimated GFR 62, Est GFR ( Amer) 75 D, Glucose 86 D, Calcium 8.2 L, Magnesium 1.8 D I & O for Last 24 hours: Intake & Output 07/21/23 07/22/23 07/23/23 07/24/23 23:59 23:59 23:59 23:59 Intake Total 2830 / 3430 4461 / 5111 890 / 890 Output Total 0 / 0 0 / 0 0 / 0 Balance 2830 / 3430 4461 / 5111 890 / 890 Weight 144.242 kg 143.789 kg 101.37 kg 145.195 kg Microb
--- NOTE | 2023-07-26 15:29 | CARE MANAGER ---
Contacted patient related to hospital discharge. She states she is feeling a lot better. She denies any questions or concerns and is aware of her follow up appointments. She is taking her medications as prescribed as well. MOISES Martin
--- NOTE | 2023-08-04 18:46 | PC.NURSE ---
pt blood cultures positive for escherichia coli pt admitted from ER on 07/21/23 pt d/c from 07/24/23 on Cefixime 400 mg x5 days 1539-spoke with Francisco in pharmacy r/t ID and sensitivity list not specifically stating Cefixime. Francisco reviewed the Id and sensitivity is pansensitive to all the cephalosporins, states cefixime is a cephalosporin.
== END 2023-07-24 09:47 | disposition home or self-care (01) | DRG 872 ==
LOC: ER 22:57 → 2ND 23:21
PROVIDERS: Nurse Practitioner Family; Admitting Provider Family Medicine; Emergency Provider Emergency Medicine; PCP Family Medicine; Visit Provider Family Medicine
DX: A41.9 Sepsis, unspecified organism (principal); N39.0 Urinary tract infection, site not specified; N17.9 Acute kidney failure, unspecified; Z68.42 Body mass index [BMI] 45.0-49.9, adult; R31.9 Hematuria, unspecified; N20.0 Calculus of kidney; I10 Essential (primary) hypertension; E03.9 Hypothyroidism, unspecified; M1A.9XX0 Chronic gout, unspecified, without tophus (tophi); E66.01 Morbid (severe) obesity due to excess calories
CPT/HCPCS: 36415; 74176; 80048; 80053; 80061; 81001; 83605; 83735; 84145; 85007; 85025; 87040; 87086; 87186; 99291; J0696; J2405; J2543; J3370; J3475

== ENCOUNTER 2023-09-10 21:39 | Emergency (ER) | payer MEDICARE, OTHER, SELFPAY ==
[2023-09-10 21:59] VITALS: RESP 20; TEMP 37.5; O2SAT 96; BMI 46.6
[2023-09-10 22:03] VITALS: BP 153/88; PULSE 72; RESP 20; TEMP 37.5; O2SAT 96
--- NOTE | 2023-09-10 22:21 | HMH.EDGENADL ---
Discharge Plan Disposition Patient Disposition: Home, Self-Care Prescriptions Prescriptions: New cefdinir 300 mg capsule 300 mg PO BID 5 Days Qty: 10 0RF No Action metoprolol succinate 50 mg tablet extended release 24 hr 50 mg PO DAILY levothyroxine [Synthroid] 125 mcg tablet 125 mcg PO DAILY omeprazole 20 mg capsule,delayed release(DR/EC) 20 mg PO DAILY verapamil 240 mg tablet extended release 240 mg PO DAILY allopurinol 300 mg tablet 300 mg PO DAILY spironolactone 50 mg tablet 50 mg PO DAILY cefixime [Suprax] 400 mg capsule 400 mg PO DAILY 5 Days Qty: 5 0RF tamsulosin [Flomax] 0.4 mg capsule 0.4 mg PO DAILY Qty: 30 0RF Referrals Follow up/Referrals: Ion Cm MD [Primary Care Provider] - See instructions Activity Restrictions/Add. Instructions Additional Instructions/Restrictions: Please take antibiotics as prescribed for urinary tract infection. Please follow-up with your primary care provider. Please return to the emergency department if you develop any new or worsening symptoms or become concerned for your health. Clinical Impressions Clinical Impression: Acute UTI, Dysuria Instructions Patient Instructions: DI for Urinary Tract Infection (UTI), DI for Urinary Tract Infection in Children Discharge ED Provider: Samir Gilbert General Adult HPI <Norman Reina MD - Last Filed: 09/10/23 23:09> General Chief complaint: Urogenital-Female Stated complaint: poss UTi, fever Time Seen by Provider: 09/10/23 22:10 Mode of Arrival: Ambulatory Source of Information: Patient Limitations: No Limitations Description of Symptoms (Recalled from ER Triage Doc. by RN): 68 year old female that states she has a history of recurrent UTI, was admitted at this hospitial about a month ago for same issue. Today patient stated she started having episodes of incontience along with pressure and burning accompanied with fever greater than 100. History of Present Illness HPI narrative: Patient is a 68-year-old female with past medical history of recurrent urinary tract infections who presents emergency department for evaluation of urinary tract symptoms. Onset was acute, over the last 24 hours. Patient has had dysuria, fever, chills. No abdominal pain. No other acute complaints at this time. She has a history of being admitted for previous urinary tract infections and I have cautioned she presents here early in course for evaluation. Related Data Home Medications Medication Instructions Recorded Confirmed metoprolol succinate 50 mg 50 mg PO DAILY High Blood Pressure 08/02/20 07/22/23 tablet,extended release 24 hr allopurinol 300 mg tablet 300 mg PO DAILY gout 07/22/23 07/22/23 levothyroxine 125 mcg tablet 125 mcg PO DAILY Thyroid 07/22/23 07/22/23 (Synthroid) omeprazole 20 mg capsule,delayed 20 mg PO DAILY Acid Reflux 07/22/23 07/22/23 release spironolactone 50 mg tablet 50 mg PO DAILY Fluid 07/22/23 07/22/23 verapamil 240 mg tablet,extended 240 mg PO DAILY High Blood Pressure 07/22/23 07/22/23 release Previous Rx's Medication Instructions Recorded cefixime 400 mg capsule (Suprax) 400 mg PO DAILY 5 days #5 caps 07/24/23 tamsulosin 0.4 mg capsule (Flomax) 0.4 mg PO DAILY #30 caps 07/24/23 cefdinir 300 mg capsule 300 mg PO BID 5 days #10 caps 09/11/23 Allergies Allergy/AdvReac Type Severity Reaction Status Date / Time sulfisomidine [SULFISOMIDINE] Allergy Mild Verified 08/16/20 15:22 Sulfa (Sulfonamide Allergy Verified 08/16/20 15:22 Antibiotics) REPLACED BY [facility] <Norman Reina MD - Last Filed: 09/10/23 23:09> REPLACED BY [facility] Disclaimer: The information contained in this section may have been updated after the patient was seen, as this information can be updated by other users. Surgical History (Updated 07/22/23 @ 01:21 by Caleb Pina APRN) Hx of gastric bypass Social History Smok
[2023-09-10 22:24] LABS: Microscopic, Urine URINE MICROSCOPIC (MICROSCOPIC)
[2023-09-10 22:29] LABS: Basophils # 0.1 K/mm3 (0-0.2); Basophils % 0.3 % (0.1-2.0); Eosinophils # 0.3 K/mm3 (0.0-0.4); Eosinophils % 1.7 % (0.1-12.0); Hematocrit 41.5 % (37.0-47.0); Hemoglobin 14.3 g/dL (12.2-16.2); Lymphocytes # 2.3 K/mm3 (0.7-4.5); Lymphocytes % 14.8 % (10-50); Mean Corpuscular HGB Conc 34.4 g/dL (31.8-35.4); Mean Corpuscular Hemoglobin 32.8 pg (27.0-31.2); Mean Corpuscular Volume 95.3 fl (81-99); Mean Platelet Volume 9.4 fl (7.4-10.4); Monocytes # 1.1 K/mm3 (0.1-1.0); Monocytes % 6.9 % (1.7-9.3); Neutrophils # 11.8 K/mm3 (1.8-7.8); Neutrophils % 76.3 % (37.0-80.0); Platelet Count 272 K/mm3 (142-424); Red Blood Count 4.35 M/mm3 (4.20-5.40); Red Cell Distribution Width 14.2 % (11.5-17.5); White Blood Count 15.4 K/mm3 (4.8-10.8)
[2023-09-10 22:33] LABS: MANUAL DIFFERENTIAL MANUAL DIFFERENTIAL (MANUAL DIFF)
[2023-09-10 22:54] LABS: Eosinophils % 2 % (0-3); Lymphocytes % 25 % (10-50); Monocytes % 6 % (2-9); Neutrophils % 67 % (42-76); Platelet Estimate Normal; RBC Morphology Normal; Total Cells Counted 100
[2023-09-10 23:08] LABS: Chloride 105 mmol/L (98-107); Potassium 4.3 mmoL/L (3.5-5.1); Sodium 138 mmol/L (136-145)
[2023-09-10 23:11] LABS: Alanine Aminotransferase 22 U/L (12-78); Albumin Level 4.3 g/dl (3.5-5.0); Albumin/Globulin Ratio 1.3 (1.1-1.8); Alkaline Phosphatase 69 U/L (38-126); Anion Gap 13.3 mEq/L (5-15); Aspartate Amino Transferase 30 U/L (14-36); Bilirubin,Total 0.5 mg/dl (0.2-1.3); Blood Urea Nitrogen 20 mg/dl (7-17); Calcium 8.9 mg/dl (8.4-10.2); Carbon Dioxide 24 mmol/L (22.0-30.0); Creatinine Clearance Estimated 52 mL/min (50-200); Estimated Glomerular Filt Rate 55 ml/min (>60); GFR (African American) 67 ML/MIN (>60); Globulin 3.2 g/dL (1.3-3.2); Glucose 98 mg/dl (74-100); Total Protein,Serum 7.5 g/dl (6.3-8.2)
[2023-09-10 23:35] LABS: Appearance,Urine CLOUDY (Clear); Blood, Urine TRACE-I (Negative); Color,Urine YELLOW (Yellow); Glucose,Urine (UA) Negative (Negative); Ketones,Urine TRACE (Negative); Leukocyte Esterase,Urine 2+ (Negative); Nitrate,Urine POSITIVE (Negative); PH,Urine 5.5 (5.0-8.5); Protein,Urine 2+ (Negative); Specific Gravity, Urine >= 1.030 (1.005-1.030); Urobilinogen,Urine 0.2 EU/dl (0.2)
[2023-09-10 23:46] LABS: Bilirubin,Urine 1+ (Negative)
[2023-09-10 23:59] LABS: RBC,Urine Occasional #/hpf (0-3)
[2023-09-11 00:10] VITALS: BP 138/76; PULSE 88; RESP 18; TEMP 36.9
--- NOTE | 2023-09-17 08:28 | PC.NURSE ---
urine culture on worklist, notified dr. chavez. pt d/c from ER on Cefdinir on 09/10/23. ID/Sensitivity shows okay for cefdinir per Dr. Chavez. He states no further action needed.
== END 2023-09-11 00:16 | disposition home or self-care (01) ==
PROVIDERS: Emergency Medicine; Emergency Provider Emergency Medicine; PCP Family Medicine
DX: N39.0 Urinary tract infection, site not specified (principal); B96.29 Other Escherichia coli [E. coli] as the cause of diseases classified elsewhere; R50.9 Fever, unspecified
CPT/HCPCS: 80053; 81001; 85007; 85025; 87086; 99283

== ENCOUNTER 2023-12-22 20:07 | Outpatient (CLI) | payer MEDICARE, SELFPAY | END 2023-12-22 23:59 | LOC: LAB.DROPOF 20:08 | PROVIDERS: PCP Nurse Practitioner Family; Visit Provider Nurse Practitioner Family | DX: R30.0 Dysuria (principal) | CPT/HCPCS: 87086 ==

== ENCOUNTER 2023-12-27 19:57 | Outpatient (CLI) | payer MEDICARE, SELFPAY | END 2023-12-27 23:59 | LOC: LAB.DROPOF 19:57 | PROVIDERS: PCP Nurse Practitioner Family; Visit Provider Nurse Practitioner Family | DX: R30.0 Dysuria (principal); B96.89 Other specified bacterial agents as the cause of diseases classified elsewhere | CPT/HCPCS: 87086 ==

== ENCOUNTER 2024-03-13 09:38 | Outpatient (CLI) | payer MEDICARE, SELFPAY | END 2024-03-13 23:59 | disposition home or self-care (01) | LOC: LAB.DROPOF 03-16 09:38 | PROVIDERS: PCP Nurse Practitioner Family; Visit Provider Nurse Practitioner Family | DX: N39.0 Urinary tract infection, site not specified (principal) | CPT/HCPCS: 87086 ==

== ENCOUNTER 2024-07-04 13:50 | Outpatient (CLI) | payer MEDICARE, SELFPAY | END 2024-07-04 23:59 | disposition home or self-care (01) | LOC: LAB.DROPOF 07-05 09:24 | PROVIDERS: PCP Nurse Practitioner Family; Visit Provider Nurse Practitioner Family | DX: N39.0 Urinary tract infection, site not specified (principal); R10.9 Unspecified abdominal pain | CPT/HCPCS: 87086; 87088; 87186 ==

== ENCOUNTER 2024-09-08 13:35 | Outpatient (CLI) | payer MEDICARE, SELFPAY ==
[2024-09-08 15:00] LABS: 25-OH Vitamin D, Total 58.2 ng/mL (30-100); T4 (Thyroxine) 11.8 ug/dl (5.53-11.0)
[2024-09-08 15:01] LABS: Free T4 (Free Thyroxine) 1.66 ng/dl (0.78-2.19)
[2024-09-08 15:06] LABS: Erythrocyte Sedimentation Rate 24 mm/hr (0-30)
[2024-09-08 15:14] LABS: Thyroid Stimulating Hormone < 0.02 uIU/mL (0.465-4.68)
[2024-09-09 08:35] LABS: Triiodothyronine (T3) Free 2.3 pg/mL (2.0-4.4)
[2024-09-09 10:18] LABS: RA Latex Turbid. 11.5 IU/mL (<14.0)
[2024-09-12 13:12] LABS: Antinuclear Antibodies, IFA Negative (.)
[2024-09-13 12:17] LABS: Lyme B. burgdorferi PCR Blood Negative (Negative)
== END 2024-09-08 23:59 | disposition home or self-care (01) ==
LOC: LAB 13:36
PROVIDERS: PCP Nurse Practitioner Family; Visit Provider Nurse Practitioner Family
DX: E03.9 Hypothyroidism, unspecified (principal); M25.50 Pain in unspecified joint; E55.9 Vitamin D deficiency, unspecified
CPT/HCPCS: 36415; 82306; 84436; 84439; 84443; 84481; 84550; 85651; 86038; 86431; 87476

== ENCOUNTER 2024-09-12 08:43 | Outpatient (CLI) | payer MEDICARE, SELFPAY ==
--- NOTE | 2024-09-12 08:43 | XR_ITS ---
FINAL REPORT TECHNIQUE: Bone mineral density was calculated of the lumbar spine and hip. CLINICAL HISTORY: post menopausal COMPARISON: None FINDINGS: Using L1-4, the bone mineral density of the spine is 1.4 4 9 g/cm2, corresponding to T-score of 3.7. Using the left hip, the bone mineral density of the femoral neck is 1.090 g/cm2, corresponding to a T-score of 1.2. Using the right forearm, the bone mineral density of 1/3 is 0.688 g/cm?, corresponding to a T-score of -0.1. NOTE: T-score: Standard deviation compared with peak bone mass of young adult mean. *Following the recommendations of the International Society of Bone densitometry, classification of hip BMD is based on the lower of two T-scores; total hip or femoral neck. IMPRESSION: Normal bone marrow density of the right forearm, left hip, and lumbar spine. Authenticated and ERN
== END 2024-09-12 23:59 | disposition home or self-care (01) ==
LOC: RAD 08:43
PROVIDERS: PCP Nurse Practitioner Family; Visit Provider Nurse Practitioner Family
DX: Z13.820 Encounter for screening for osteoporosis (principal); Z78.0 Asymptomatic menopausal state
CPT/HCPCS: 77080

== ENCOUNTER 2025-10-12 14:58 | Outpatient (CLI) | payer MEDICARE, SELFPAY ==
[2025-10-12 17:02] LABS: Hematocrit 42.2 % (37.0-47.0); Hemoglobin 13.8 g/dL (12.2-16.2); Immature Granulocytes % 0.7 %; Mean Corpuscular HGB Conc 32.7 g/dL (31.8-35.4); Mean Corpuscular Hemoglobin 31.2 pg (27.0-31.2); Mean Corpuscular Volume 95.5 fl (81-99); Nucleated Red Blood Cells % 0 %; Platelet Count 333 K/mm3 (142-424); Red Blood Count 4.42 M/mm3 (4.20-5.40); Red Cell Distribution Width-SD 49.8 fL; White Blood Count 11.4 K/mm3 (4.8-10.8)
[2025-10-12 17:32] LABS: Alanine Aminotransferase 21 U/L (12-78); Albumin Level 4.3 g/dl (3.5-5.0); Albumin/Globulin Ratio 1.4 (1.1-1.8); Alkaline Phosphatase 79 U/L (38-126); Anion Gap 13.2 mEq/L (5-15); Aspartate Amino Transferase 20 U/L (14-36); Bilirubin,Total 0.5 mg/dl (0.2-1.3); Blood Urea Nitrogen 26 mg/dl (7-17); Calcium 10.2 mg/dl (8.4-10.2); Carbon Dioxide 25 mmol/L (22.0-30.0); Chloride 102 mmol/L (98-107); Cholesterol 251 mg/dl (140-200); Creatinine,Serum 1.20 mg/dl (0.52-1.04); Estimated Glomerular Filt Rate 44 ml/min (>60); GFR (African American) 54 ML/MIN (>60); Globulin 3.0 g/dL (1.3-3.2); Glucose 91 mg/dl (74-100); HDL Cholesterol 35 mg/dl (40-60); Magnesium 1.3 mg/dl (1.6-2.3); Potassium 4.2 mmoL/L (3.5-5.1); Sodium 136 mmol/L (136-145); Total Protein,Serum 7.3 g/dl (6.3-8.2); Triglycerides 302 mg/dl (30-150)
[2025-10-12 17:49] LABS: 25-OH Vitamin D, Total 71.2 ng/mL (30-100)
[2025-10-12 17:50] LABS: Free T4 (Free Thyroxine) 1.38 ng/dl (0.78-2.19); T4 (Thyroxine) 8.9 ug/dl (5.53-11.0)
[2025-10-12 18:03] LABS: Thyroid Stimulating Hormone 0.04 uIU/mL (0.465-4.68)
[2025-10-12 18:31] LABS: Vitamin B12 > 1000 pg/mL (239-931)
[2025-10-14 07:09] LABS: Triiodothyronine (T3) Free 2.2 pg/mL (2.0-4.4)
--- OUTSIDE RECORDS SUMMARY | 2025-10-14 15:00 | XMS_ITS | Encounter Summary ---
Author Organization [employer] ([place], [place], [place], [place], [place]) Address [address] [place] [address] Care Team Providers Care Ui Developer With Angular Js Name Role Phone Emir Goddard MD Primary Care Provider [phone] Dayanna Bang APRN Primary Care Provider [phone] Encounter Details Date Type Department Care Team (Late st Contact Info) Description 11/14/2020 Transcribed Document [facility] Family Medicine [facility] [place] [address] ProviderAnuj MD [address] [place] [address] Social History Tobacco Use Types Packs/Day Years Used Date Smoking Tobacco: Never Assessed Comments Unknown Sex and Gender Information Value Date Recorded Sex Assigned at Female 05/05/2022 8:00 PM CDT Legal Sex Female 8:00 PM CDT Gender Identity Female 05/05/2022 8:00 PM CDT Sexual Orientation Not on file documented as of this encounter Miscellaneous Notes * Cerner Conversion Note - Historical ProviderMD - 11/14/2020 7:00 AM LANDFILL ATTENDANT Spiritual Care Short Form Entered On: 11/14/2020 7:49 EST Performed On: 11/14/2020 7:00 EST by BROOKE ROMERO Chaplain-Non Cert General Information, Spiritual Care Spiritual Care Referred by : Home Economics Teacher initiated Reason for Visit : Initial Ministry Provided to : Patient Intervention/Comment/Summary Points : Pre-surgery visit to patient; she shared that she was ready for her surgery and excited about her future. Patient has a jerome that strengthens her and is well-supported by her family. Prayed with her for her surgery, recovery, and weight loss journey. Spiritual/Emotional Acuity : Low Spiritual Framework : Well integrated, provides significant strength/resource Yazidi Preference : Catholic BROOKE ROMERO, Home Economics Teacher-Non Cert - 11/14/2020 7:43 EST Electronically signed by [facility], [facility] Conversion Hand Or Machine Paster Cerner at 2023 6:37 PM CDT documented in this encounter Plan of Treatment Upcoming Encounters Date Type Department Care Team (Late st Contact Info) Description 03/26/2026 1:30 PM EDT Office Visit [facility] Bariatric Services [address] [facility] [address] [place] [address] Hammad Jack MD [address] [place] [id number] documented as of this encounter Visit Diagnoses Not on filedocumented in this encounter Care Teams Ui Developer With Angular Js Relationship Specialty Start Date End Date Emir Goddard MD [address] [facility] [address] [place], [place] [id number] PCP - General General Surgery 12/23/22 04/03/24 Dayanna Bang, PARISH [address] [address] PCP - General Nurse Practitioner 04/04/24 documented as of this encounter
--- OUTSIDE RECORDS SUMMARY | 2025-10-14 15:00 | XMS_ITS | Encounter Summary ---
Author Organization [employer] ([place], [place], [place], [place], [place]) Address [address] [place] [address] Care Team Providers Care Yarn Spinner Name Role Phone Emir Goddard MD Primary Care Provider [phone] Dayanna Bang APRN Primary Care Provider [phone] Encounter Details Date Type Department Care Team (Late st Contact Info) Description 11/14/2020 Transcribed Document [facility] Family [place] [address] ProviderAnuj MD [address] [place] [address] Social History Tobacco Use Types Packs/Day Years Used Date Smoking Tobacco: Never Assessed Comments Unknown Sex and Gender Information Value Date Recorded Sex Assigned at Female 05/05/2022 8:00 PM CDT Legal Sex Female 8:00 PM CDT Gender Identity Female 05/05/2022 8:00 PM CDT Sexual Orientation Not on file documented as of this encounter Miscellaneous Notes * Cerner Conversion Note - Anuj ProviderMD - 11/14/2020 9:12 AM DIESEL ENGINE ASSEMBLER Patient: ROSALIND CEDENO Age: 65 Years Sex: Female : 1955 OPERATIVE REPORT DATE OF PROCEDURE: 11/14/2020 PREOPERATIVE DIAGNOSIS(ES): Morbid obesity POSTOPERATIVE DIAGNOSIS(ES): Morbid obesity PROCEDURE: 1. Laparoscopic sleeve gastrectomy SURGEON: Emir Goddard M.D. MULTICUT LINE OPERATOR: Mallory Nash MD ANESTHESIA: General. SPECIMEN: Stomach. 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 After discussing all the risks and benefits of procedure and reviewing all the medical history, the patient decided to consent for it. DESCRIPTION OF PROCEDURE: Patient was brought to the operating room, was placed on the operating table in supine position. General endotracheal tube anesthesia was given by the Anesthesia team. The patient was prepped and draped in the standard fashion, time-out was called. Patient and procedure were correct. We accessed the abdominal cavity using a Veress needle at Crockett's point and insufflated up to 17mmHg. Then a supraumbilical 5 mm incision was made. We used the Optiview technique with a 5 mm trocar and a 5 mm camera to access the abdominal cavity. A quick survey of abdominal cavity showed no intra-abdominal organ injury at entry. At this point, the Veress needle was removed and we proceeded to insert our accessory working trocars. We placed a 5 mm incision in the subxiphoid area to place a Alanis liver retractor. The left lobe of the liver was retracted, then we proceeded to place the left-sided working trocars. A 5 mm left subcostal along the anterior axillary line and another 5 mm trocar along the midclavicular line. Then the right upper quadrant trocars were placed. One 5mm trocar along the anterior axillary line and a 15mm one along the midclavicular line. Once in the abdominal cavity, we examined the hiatus. No hiatal hernia was identified. We proceed to dissect the angle of His exposing the left dilan. Then we proceeded to dissect the greater omentum from the greater curvature of the stomach using the [place] tip LigaSure. We went all the way to the fundus of stomach, releasing all the adhesions and we visualized the left crura again. When it was done, we proceeded to place the 54-Omani bougie down the esophagus into the stomach under direct visualization. When it was in the antrum, we proceeded to staple the stomach in a parallel manner to the greater curvature, creating a sleeve gastrectomy using the [place] stapler. We used green loads, all reinforced with Seamguard all the way from the antrum to the fundus of stomach avoiding to narrow the area next to the incisura angularis. The resected stomach was moved aside over the RUQ and, we proceeded to reinforce the staple line using a running reabsorbable Stratafix 2-[address] from the proximal staple line to the distal staple line, reattaching the greater omentum to the kalpana-greater curvature. Staple line was inspected and full hemostasis was achieved. Then we removed the Nathason liver retractor and proceeded to use the EndoCatch to be able to remove the stomach specimen, avoiding contact with the wound through the the 15 mm right sided trocar and this was closed using a Tye-Carmen suture with #1 Vicryl at the fascia level. After this, we proceeded to reduce pneumoperitoneum, remove all trocars and irrigate the stomach retrieval site with normal saline. We closed all incisions using donta. Dry dressings applied to all incisions The patient tolerated very well the procedure, was sent to recovery room extubated. Instrument and lap count was correct x2. Electronically signed by Paola Minaya Conversion Security Compliance Specialist Cerner at 2023 6:45 PM CDT documented in this encounter Plan of Treatment Upcoming Encounters Date Type Department Care Team (Late st Contact Info) Description 03/26/2026 1:30 PM EDT Office Visit [facility] Bariatric Services [address] [facility] [address] [place] [address] Hammad Jack MD [address] [place] [address] documented as of this encounter Visit Diagnoses Not on filedocumented in this encounter Care Teams Yarn Spinner Relationship Specialty Start Date End Date Emir Goddard MD [address] [facility] [address] [place], [place] [id number] PCP - General General Surgery 12/23/22 04/03/24 Dayanna Bang APRN [address] [address] PCP - General Nurse Practitioner 04/04/24 documented as of this encounter
--- OUTSIDE RECORDS SUMMARY | 2025-10-14 15:00 | XMS_ITS | Encounter Summary ---
Author Organization [employer] ([place], [place], [place], [place], [place]) Address [address] [place] [address] Care Team Providers Care Secured Entrance Monitor Name Role Phone Emir Goddard MD Primary Care Provider [phone] Dayanna Bang APRN Primary Care Provider [phone] Encounter Details Date Type Department Care Team (Late st Contact Info) Description 11/14/2020 Transcribed Document [facility] Family Medicine [facility] [address] ProviderAnuj MD [address] [place] [address] Social History Tobacco Use Types Packs/Day [...] Conversion Note - Anuj ProviderMD - 11/14/2020 3:38 PM CONFERENCE INTERPRETER Stroke/Warfarin Instructions Entered On: 11/14/2020 15:38 EST Performed On: 11/14/2020 15:38 EST by Ange Dunn RN Stroke/Warfarin Instructions Stroke/TIA Discharge Ins : N/A Warfarin Discharge Ins : N/A Ange Dunn RN - 11/14/2020 15:38 EST Electronically signed by Rei [facility] Conversion Cryptological Technician Cerner at 2023 6:42 PM CDT documented in this encounter Plan of Treatment Upcoming Encounters Date Type Department Care Team (Late st Contact Info) Description 03/26/2026 1:30 PM EDT Office Visit [facility] Bariatric Services [address] [place] [address] Hammad Jack MD [address] [facility] [address] [place] [address] documented as of this encounter Visit Diagnoses Not on filedocumented in this encounter Care Teams Secured Entrance Monitor Relationship Specialty Start Date End Date Emir Goddard MD [address] [place] [address] PCP - General General Surgery 12/23/22 04/03/24 Dayanna Bang, NET WPF DEVELOPER [address] [address] PCP - General Nurse Practitioner 04/04/24 documented as of this encounter
--- OUTSIDE RECORDS SUMMARY | 2025-10-14 15:00 | XMS_ITS | Encounter Summary ---
Author Organization [facility] ([place], [place], [place], [place], [place]) Address [address] [place] [address] Care Team Providers Care Printed Circuit Board Pcb Designer Name Role Phone Emir Goddard MD Primary Care Provider [phone] Dayanna Bang APRN Primary Care Provider [phone] Encounter Details Date Type Department Care Team (Late st Contact Info) Description 11/14/2020 Transcribed Document [facility] Medicine [facility] [place] [address] ProviderAnuj MD [address] [place] [address] Social History Tobacco Use Types Packs/Day [...] Conversion Note - Anuj ProviderMD - 11/14/2020 8:10 AM PROCESS EQUIPMENT OPERATOR Nutrition Assessment Entered On: 11/15/2020 8:16 EST Performed On: 11/15/2020 8:16 EST by [address]ory Greenfield RD, STU Nutrition Assessment Nutrition Assessment Reason : Automatic referral Mallory Greenfield RD, STU - 11/15/2020 8:16 EST Nutrition Recommendations Dietitian Recommendations : (11/15) Consult rec'd for BMI >40. Pt admitted s/p lap sleeve. RD to sign off. Please reconsult prn if RD is needed. Mallory Greenfield, BETO, LD - 11/15/2020 8:16 EST Electronically signed by Rei, Paola Conversion Automobile Upholsterer Apprentice José Miguel at 2023 6:38 PM CDT documented in this encounter Plan of Treatment Upcoming Encounters Date Type Department Care Team (Late st Contact Info) Description 03/26/2026 1:30 PM EDT Office Visit [facility] [address] [place] [address] Hammad Jack MD [address] [place] [address] documented as of this encounter Visit Diagnoses Not on filedocumented in this encounter Care Teams Printed Circuit Board Pcb Designer Relationship Specialty Start Date End Date Emir Goddard MD [address] [place] [address] PCP - General General Surgery 12/23/22 04/03/24 Dayanna Bang, HANDBAG FINISHER [address] [address] PCP - General Nurse Practitioner 04/04/24 documented as of this encounter
--- OUTSIDE RECORDS SUMMARY | 2025-10-14 15:00 | XMS_ITS | Encounter Summary ---
Author Organization [employer] ([place], [place], [place], [place], [place]) Address [address] [place] [address] Care Team Providers Care Fuel Efficient Automobile Designer Name Role Phone Emir Goddard MD Primary Care Provider [phone] Dayanna Bang APRN Primary Care Provider [phone] Encounter Details Date Type Department Care Team (Late st Contact Info) Description 11/06/2020 Transcribed Document [facility] [place] [address] [place] [address] ProviderAnuj MD [address] [place], [place] [id number] Social History Tobacco Use Types Packs/Day Years Used Date Smoking Tobacco: Never Assessed Comments Unknown Sex and Gender Information Value Date Recorded Sex Assigned at Female 05/05/2022 8:00 PM CDT Legal Sex Female 8:00 PM CDT Gender Identity Female 05/05/2022 8:00 PM CDT Sexual Orientation Not on file documented as of this encounter Miscellaneous Notes * Cerner Conversion Note - Anuj ProviderMD - 11/06/2020 10:07 AM PLACEMENT OFFICER PAT Adult Entered On: 11/06/2020 10:17 EST Performed On: 11/06/2020 10:07 EST by Donya Ansari RN Height and Weight, Clinical Dosing Height Source : Measured Height Entry Format : Yell Height, Feet : 0 ft(Converted to: 0 cm, 0 Inch) Donya Ansari RN - 11/06/2020 11:43 EST Height, Inches : 66 Inch(Converted to: 5 ft 6 Inch, 167.64 cm) Clinical Height : 167.64 cm Donya Ansari RN - 11/06/2020 11:47 EST Weight Source : Standing scale Weight Entry Format : Yell Clinical Dosing Weight : 167.27 kg Weight, Pounds : 368 lb Donya Ansari RN - 11/06/2020 11:43 EST Body Surface Area (BSA) : 2.59 m2 Body Mass Index : 59.5 kg/m2 (>HHI) [place] Body Weight : 59 kg Donya Ansari RN - 11/06/2020 11:47 EST Health Histories Smoking Status : Never (less than 100 in lifetime; none in last 30 days) Smokeless Tobacco Status : Never Donya Ansari RN - 11/06/2020 10:07 EST Social History (As Of: 11/06/2020 10:17:39 EST) Tobacco: Smoking Status Never smoker. (Last Updated: 11/30/2016 15:18:41 EST by Rosalind Cruz RN) Never (less than 100 in lifetime) Smoking Status. Never Smokeless Tobacco Status. (Last Updated: 11/06/2020 10:07:52 EST by Donya Ansari RN) Alcohol: Alcohol Use History No. (Last Updated: 11/30/2016 15:18:45 EST by Rosalind Cruz RN) Alcohol Use History No. (Last Updated: 11/06/2020 10:07:56 EST by Donya Ansari RN) Substance Abuse: Drug Use Hx: No. (Last Updated: 11/30/2016 15:18:49 EST by Rosalind Cruz RN) Drug Use Hx: No. Use in Last 12 Months: No. (Last Updated: 11/06/2020 10:08:01 EST by Donya Ansari RN) Nutrition/Health: Low Carb/High Protein, Caffeine intake amount: None. (Last Updated: 11/06/2020 10:08:19 EST by Donya Ansari RN) Home/Environment: Lives with Spouse. Home equipment: Walker/Cane. Alcohol abuse in household: No. Substance abuse in household: No. Smoker in household: No. Injuries/Abuse/Neglect in household: No. Feels unsafe at home: No. (Last Updated: 11/06/2020 10:08:52 EST by Ansari, Donya, RN) Infectious Disease History Has the patient ever been tested for COVID-19? : Yes, Patient stated results Negative Date of COVID-19 test known? : No Does patient have symptoms of COVID-19? : No COVID19 Screening : No Experiencing Infectious Disease Symptoms : No symptoms Physical contact outside [place] in the last 30 days : No Infectious Disease History : Chicken pox/Shingles, Influenza, Measles Tuberculosis Symptoms : None Donya Ansari RN - 11/06/2020 10:07 EST COVID19 PreProcedure Screening Is this an Emergent or Add on Procedure? : No Date PreProcedure COVID-19 test known? : Yes Date of PreProcedure COVID-19 : 11/11/2020 EST Has patient been isolated since the test : N/A - PreProcedure, in-person visit Exposed to COVID19 symptoms since test? : N/A - PreProcedure, in-person visit Donya Ansari RN - 11/06/2020 10:07 EST Anesthesia/Transfusion History Family History of Anesthesia Reaction : No prior transfusion(s) Transfusion History : Prior anesthesia without reaction Family History of Anesthesia Reaction : None Donya Ansari RN - 11/06/2020 10:07 EST Advance Directive Patient has Advance Directive *Q : Yes, Advance Directive not with the patient Advance Directive Type : Living will Copy Advance Directive Verified/on Chart : No Donya Ansari RN - 11/06/2020 10:07 EST Ness Suicide Severity Rating Scale (C-SSRS) CSSRS Past Month Wish to be : No CSSRS Past Month Suicidal Thoughts : No CSSRS Lifetime Suicide Behavior : No Suicide Severity Rating Score : 0 Suicide Severity Rating : No Additional Care Required at this time Donya Ansari RN - 11/06/2020 10:07 EST Psychosocial History Do You Have a History of the Following? : Depression Currently in Unsafe Situation : No Donya Ansari RN - 11/06/2020 10:07 EST General Info Preferred Name : Rosalind Want Family/Rep/Phys Notified of Admit : No Emergency Contact #1 : Mallory Ortega Emergency Contact #1 Emergency Contact #1 Relationship : Daughter Emergency Contact #2 : . Emergency Contact #2 Phone Number : . Emergency Contact #2 Relationship : . Primary Language : Panamanian Preferred Communication Mode : Verbal Communication Barrier : None Technical Illustrations Map Inker Needed : No Donya Ansari RN - 11/06/2020 10:07 EST Dimitris Scale Dimitris Sensory Perception : Slightly limited Dimitris Moisture : Rarely moist Dimitris Activity : Walks occasionally Dimitris Mobility : Very limited Dimitris Nutrition : Adequate Dimitris Friction and Shear : Potential problem Dimitris Score : 17 Donya Ansari RN - 11/06/2020 10:07 EST Sleep Apnea Risk Assmt Hx of Obstructive Sleep Apnea Diagnosis : No Snore Loudly : Yes Tired, Fatigued, or Sleepy During Day : No Observed Stopping Breathing During Sleep : No Have/Are Being Treated for Hypertension : Yes BMI Greater Than 35 kg/m2 : Yes Age over 50 Years Old : Yes Neck Circumference Greater Than 40 cm : Yes Gender Male : No STOP-BANG Sleep Apnea Risk Level Score : 5 Donya Ansari RN - 11/06/2020 10:07 EST Electronically signed by [facility], [facility] Conversion Linking Machine Operator Cerner at 2023 6:48 PM CDT documented in this encounter Plan of Treatment Upcoming Encounters Date Type Department Care Team (Late st Contact Info) Description 03/26/2026 1:30 PM EDT Office Visit [facility]ric [facility] [address] [facility] [address] [place] [address] Hammad Jack MD [address] [facility] [address] [place] [id number] documented as of this encounter Visit Diagnoses Not on filedocumented in this encounter Care Teams Fuel Efficient Automobile Designer Relationship Specialty Start Date End Date Emir Goddard MD [address] [facility] [address] [place] [address] PCP - General General Surgery 12/23/22 04/03/24 Dayanna Bang, [place]ISH [address] [address] PCP - General Nurse Practitioner 04/04/24 documented as of this encounter
--- OUTSIDE RECORDS SUMMARY | 2025-10-14 15:00 | XMS_ITS | Encounter Summary ---
Author Organization [employer] ([place], [place], [place], [place], [place]) Address [address] [place] [address] Care Team Providers Care Program Counselor Name Role Phone Emir Goddard MD Primary Care Provider [phone] Dayanna Bang APRN Primary Care Provider [phone] Encounter Details Date Type Department Care Team (Late st Contact Info) Description 11/14/2020 Transcribed Document [facility] [place] [facility] [place] [address] ProviderAnuj MD [address] [place] [address] Social History Tobacco Use Types Packs/Day [...] - Anuj ProviderMD - 11/14/2020 3:38 PM PAINTER PLATE Patient Education Materials Follows: Dr. Patricio Clements, Dr. Zoltan Ortega, Dr. Emir Reddy PA-C - Office - Physician Exchange Discharge Instructions Use your patient handbook! DIET ?? Staying hydrated is your main goal! Be sure to drink at least 64 ounces of fluid/water every day. ?? Remember the importance of hot liquids at least twice a day to reduce mucus build up and nausea. ?? Begin using your protein supplements as soon as you get home. Work up to at least 60-80 grams of protein from your supplements. That's about 3-4 supplements a day. ?? You may start your soft, high protein diet only when you are drinking 64 oz of fluid and getting close to your 60 grams of protein from your supplements. ?? Stick with only the foods in phase three of your handbook. These foods are soft, moist and high in protein. Aim for about 3 Tbsp or 1.5 oz per meal. Remember no drinking with food or the hour after. ?? Use the fluid and protein log in your patient handbook to track your intake. ACTIVITY ?? No lifting over 20 pounds within two weeks after surgery, or until the doctor recommends it. ?? No water exercise for two weeks. ?? Do not sit or stand for long periods of time. When you do sit, change positions frequently. ?? Do not drive until 1 week after surgery and until you are off all pain medication. ?? You may resume sexual relations when comfortable. ?? Continue to use the spirometer (breathing exercise) that you brought home at least 4 times a day for the first week. ?? Return to work when you feel capable. ?? Begin to walk 30 minutes each day. At first you may need to take two or three 10 to 15 minute walks. Gradually increase the distance you walk as you tolerate. MEDICINES ?? Take your medicines as we discussed at discharge. There may be some changes from what you were on before surgery. Fill prescriptions given at hospital and begin taking the omeprazole (or equivalent) daily. ?? Post-op vitamins will begin after your post-op appointment. ?? Take a dose of Milk of Magnesia each day that you are taking pain medication or until you have normal bowel movement. DIABETES ?? If you are diabetic, check your glucose. Call the office if it is greater than 200 more than 3 times in 24-48 hours. WOUND CARE ?? You will be sent home with bandages over your incisions. You should remove all the bandages and shower over your wounds using antibacterial soap, such as Dial, the day after you return home. Do not re-cover your donta. Pat dry after shower with a clean towel. If you have some wound drainage, it is still fine to shower. You may use a dressing or sanitary napkin to recover your drain site if needed. ?? Please notify [facility] of any drainage, type and amount, change in well-being: fever, increasing pain, inability to tolerate fluids or liquids. REMEMBER As you begin to use your body fat as fuel, you will become ketotic and therefore a bit nauseated. It is important that you continue your protein, even when you are not hungry or feel nauseated. WHEN TO CALL US ? If you have abdominal pain worse than you ever had in the hospital. ?? If you have a temperature that is 101 degrees or more. ?? If you have unusual swelling in one or both legs. ?? If you vomit and it looks different from what you just ate / drank. ?? If you have increased redness or drainage from incision sites. ?? If you have any other symptoms that concern you. Use your Patient Handbook! Many topics including nausea, vomiting, diarrhea, constipation, sleeplessness, headaches, and more are covered within this book. If you do not find an answer in your book, please call the Center at [phone]. FAQ - Patient COVID-19 testing Why do I need a COVID-19 test in the hospital? We are testing patients as part of an overall effort to ensure the safety of our patients, staff and providers, and to limit the spread of the novel coronavirus throughout our community. What happens if I test positive for COVID-19? Any scheduled elective procedure will be postponed and treatment for the coronavirus will follow the protocol that is currently in place. If you are admitted to the hospital, we will use droplet precautions for patients who test positive for COVID-19. If I'm a patient, should I wear a mask? Yes. When you are in your room alone, you may remove your mask. When anyone enters your room, you should put your mask back on. Will I be allowed to have visitors if I am admitted to the hospital with COVID-19? As part of the standard care for COVID-19 patients, visitors will not be allowed to protect them from potential exposure to the novel coronavirus. If you have a health care support person with you during a pending test and the test comes back positive, your visitor will be asked to leave and follow up with their primary care provider. [facility] health may reach out to them to complete contact tracing. Will my status as COVID-19 positive be reported? Because COVID-19 is a public health threat, all positive cases are reported through the [facility] health department and the [place] Department for Public Health. Those organizations are responsible for monitoring public health threats. What is contact tracing? The public health departments at the state and local levels use contact tracing to prevent the spread of infectious disease. They will work to identify people who have COVID-19 and their contacts who may have been exposed. What does contact tracing involve? Typically, a contact tracer will interview patients with COVID-19 to identify everyone with whom they have had close contact during the time they may have been infectious and then notify those contacts of potential exposure and refer them for testing. They may monitor the contacts for symptoms of COVID-19 and connect the contacts with services they may need during a recommended self-quarantine period. The patient's name is not revealed to anyone during the contact tracing interviews, even if a contact asks. Who would be considered a close contact ? According to the CDC, a close contact is defined as someone who was within 6 feet of an infected person for at least 15 minutes, starting from 48 hours before the person began feeling sick until the time the patient was isolated. What can a close contact expect during this process? A contact tracer from the health department will contact that person to inform them they have been exposed to COVID-19. If that happens, the contact should self-quarantine for 14 days, starting from the last date of possible exposure, monitor their health, wear a face covering and maintain social distancing - at least 6 feet from others at all times. Should a close contact seek medical care? Close contacts should take their temperature twice a day, watch for COVID-19 symptoms and notify the health department if they develop symptoms. They should also notify people with whom they have had recent close contact if they become ill. They should seek medical care if symptoms worsen or become severe, including trouble breathing, persistent pain or pressure in the chest, confusion, inability to wait or stay awake, or bluish lips or face. Steps to Help Prevent the Spread of COVID-19 if You Are Sick In all cases, follow the guidance of your health care provider and local health department. Your local health department determines the length of time for quarantine and will notify you with detailed information. Monitor your symptoms. Common symptoms of COVID-19 include fever, fatigue, diarrhea/vomiting, loss of taste and smell, and cough. Trouble breathing is a more serious symptom that means you should get medical attention. If you develop emergency warning signs for COVID-19 get medical attention immediately. Emergency warning signs include*: ??? Trouble breathing ??? Persistent pain or pressure in the chest ??? New confusion or inability to arouse ??? Bluish lips or face *This list is not all inclusive. Please consult your medical provider for any other symptoms that are severe or concerning. Call 911 if you have a medical emergency. If you have a medical emergency and need to call 911, notify the transmitter operator that you have, or think you might have, COVID-19. If possible, put on a facemask before medical help arrives. Stay home except to get medical care. ??? Stay home: Most people with COVID-19 have mild illness and can recover at home without medical care. Do not leave your home, except to get medical care. Do not visit public areas. ??? Stay in touch with your doctor. Call before you get medical care. Be sure to get care if you have trouble breathing, or have any other emergency warning signs, or if you think it is an emergency. Separate yourself from other people in your home; this is known as home isolation. ??? Stay away from others: As much as possible, stay away from others. You should stay in a specific sick room if possible, and away from other people in your home. Use a separate bathroom, if available. Call ahead before visiting your doctor. ??? Call ahead: Many medical visits for routine care are being postponed or done by phone or telemedicine. If you have a medical appointment that cannot be postponed, call your doctor's office, and tell them you have or may have COVID-19. This will help the office protect themselves and other patients. If you are sick, wear a facemask in the following situations, if available. ??? If you are sick: You should wear a facemask, if available, when you are around other people (including before you enter a health care provider's office). ??? If you are caring for others: If the person who is sick is not able to wear a facemask (for example, because it causes trouble breathing), then as their caregiver, you should wear a facemask when in the same room with them. Visitors, other than caregivers, are not recommended. Cover your coughs and sneezes. ??? Cover: Cover your mouth and nose with a tissue when you cough or sneeze. ??? Dispose: Throw used tissues into a lined trash can. ??? Wash hands: Immediately wash your hands with soap and water for at least 20 seconds. If soap and water are not available, clean your hands with an alcohol-based hand clinical business analyst that contains at least 60% alcohol. Clean your hands often. ??? Wash hands: Wash your hands often with soap and water for at least 20 seconds when visibly dirty. This is especially important after blowing your nose, coughing or sneezing, and going to the bathroom, and before eating or preparing food. ??? Hand clinical business analyst: Use an alcohol-based hand clinical business analyst with at least 60% alcohol, covering all surfaces of your hands and rubbing them together until they feel dry. ??? Avoid touching: Avoid touching your eyes, nose and mouth with unwashed hands. Avoid sharing personal household items. ??? Do not share: Do not share dishes, drinking glasses, cups, eating utensils, towels or bedding with other people in your home. ??? Wash thoroughly after use: After using these items, wash them thoroughly with soap and water or put them in the clinical research management associate. Clean all high-touch surfaces every day. Clean high-touch surfaces in your isolation area ( sick room and bathroom) every day; let a caregiver clean and disinfect high-touch surfaces in other areas of the home. ??? Clean and disinfect: Routinely clean high-touch surfaces in your sick room and bathroom. Let someone else clean and disinfect surfaces in common areas, but not your bedroom and bathroom. ? If a caregiver or other person needs to clean and disinfect a sick person's bedroom or bathroom, they should do so on an as-needed basis. The caregiver/other person should wear a mask and wait as long as possible after the sick person has used the bathroom. ? High-touch surfaces include phones, remote controls, counters, tabletops, doorknobs, bathroom fixtures, toilets, keyboards, tablets and bedside tables. ??? Clean and disinfect areas that may have blood, stool, or body fluids on them. ??? Household lock maintenance supervisor and disinfectants: Clean the area or item with soap and water or another detergent if it is dirty. Then, use a household disinfectant. ?? Be sure to follow the instructions on the label to ensure safe and effective use of the product. Many products recommend keeping the surface wet for several minutes to ensure germs are killed. Many also recommend precautions such as wearing gloves and making sure you have good ventilation during use of the product. ?? Most EPA-registered household disinfectants should be effective. A full list of disinfectants can be found here: https://www.epa.gov/pesticide-registration/cxjy-j-brouceuufbjqd-tlw-pqdbfdc-rw rs-cov-2 documented in this encounter Plan of Treatment Upcoming Encounters Date Type Department Care Team (Late st Contact Info) Description 03/26/2026 1:30 PM EDT Office Visit [facility] Bariatric Services [address] [place] [address] Hammad Jack MD [address] [facility] [address] [place] [address] documented as of this encounter Visit Diagnoses Not on filedocumented in this encounter Care Teams Program Counselor Relationship Specialty Start Date End Date Emir Goddard MD [address] [facility] [address] [place], [place] [id number] PCP - General General Surgery 12/23/22 04/03/24 Dayanna Bang, PARISH [address] [address] PCP - General Nurse Practitioner 04/04/24 documented as of this encounter
--- OUTSIDE RECORDS SUMMARY | 2025-10-14 15:00 | XMS_ITS | Encounter Summary ---
Author Organization [email or web address] ([place], [place], [place], [place], [place]) Address [address] [place] [address] Care Team Providers Care Liberal Arts Dean Name Role Phone Emir Goddard MD Primary Care Provider [phone] Dayanna Bang APRN Primary Care Provider [phone] Encounter Details Date Type Department Care Team (Late st Contact Info) Description 11/14/2020 Transcribed Document [facility] [place] Family [place] [facility] [address] ProviderAnuj MD [address] [place] [address] Social History Tobacco Use Types Packs/Day [...] Conversion Note - Anuj ProviderMD - 11/14/2020 5:00 PM LAN/WAN ENGINEER Chart Check - Review Order Profile Entered On: 11/14/2020 18:48 EST Performed On: 11/14/2020 17:00 EST by WAYNE FAJARDO RN Chart Check Powerplans Initiated/Discontinued as Appropriate : Yes All Active Orders Reviewed : Yes WAYNE FAJARDO RN - 11/14/2020 18:48 EST Electronically signed by Rei [facility] Conversion Roundhouse Firer/Fireman Cerner at 2023 6:45 PM CDT documented in this encounter Plan of Treatment Upcoming Encounters Date Type Department Care Team (Late st Contact Info) Description 03/26/2026 1:30 PM EDT Office Visit [facility] Bariatric Services [address] [place] [address] Hammad Jack MD [address] [place] [address] documented as of this encounter Visit Diagnoses Not on filedocumented in this encounter Care Teams Liberal Arts Dean Relationship Specialty Start Date End Date Emir Goddard MD [address] [facility] [address] [place] [address] PCP - General General Surgery 12/23/22 04/03/24 Dayanna Bang, PRODUCTION LINE ASSEMBLER [address] [address] PCP - General Nurse Practitioner 04/04/24 documented as of this encounter
--- OUTSIDE RECORDS SUMMARY | 2025-10-14 15:00 | XMS_ITS | Encounter Summary ---
Author Organization [employer] ([place], [place], [place], [place], [place]) Address [address] [place] [address] Care Team Providers Care Healthcare Customer Service Name Role Phone Emir Goddard MD Primary Care Provider [phone] Dayanna Bang APRN Primary Care Provider [phone] Encounter Details Date Type Department Care Team (Late st Contact Info) Description 11/14/2020 Transcribed Document [facility] Family Medicine [facility] [place] [address] ProviderAnuj MD [address] [place] [address] Social History Tobacco Use Types Packs/Day [...] Conversion Note - Anuj ProviderMD - 11/14/2020 3:44 AM CAP MACHINE OPERATOR Admission History, Adult Entered On: 11/14/2020 10:03 EST Performed On: 11/14/2020 10:03 EST by WAYNE FAJARDO RN Advance Directive Patient has Advance Directive *Q : Yes, Advance Directive not with the patient Advance Directive Type : Living will Copy Advance Directive Verified/on Chart : No WAYNE FAJARDO RN - 11/14/2020 10:01 EST Anesthesia/Transfusion History Family History of Anesthesia Reaction : No prior transfusion(s) Blood Transfusion Acceptable to Patient : Yes Transfusion History : Prior anesthesia without reaction Family History of Anesthesia Reaction : None WAYNE FAJARDO RN - 11/14/2020 10:01 EST Functional Assessment Living Situation : Home Patient Lives With : Spouse Persons Assisting Patient at Home : Child/Children, Spouse Current Daily Living Assistance : None Sensory Deficits : None Mobility Assistance Prior to Admission : Partial assistance CRUZ Hx Falls Immediate/Within 3 Months : No Current Home Treatments : None Professional Skilled Services : None Special Services and Community Resources : None WAYNE FAJARDO RN - 11/14/2020 10:01 EST General Info Preferred Name : Rosalind Arrived From : Home Mode of Arrival on Unit : Ambulatory Legal Guardian : Unaccompanied Want Family/Rep/Phys Notified of Admit : No Emergency Contact #1 : Mallory Ortega Emergency Contact #1 cell Emergency Contact #1 Relationship : Daughter Emergency Contact #2 : . Emergency Contact #2 Phone Number : . Emergency Contact #2 Relationship : . Information Obtained From : Patient Primary Language : Mozambican Preferred Communication Mode : Verbal Communication Barrier : None Regional Ehs Manager Needed : No Currently Lactating : No Status : Patient denies WAYNE FAJARDO RN - 11/14/2020 10:01 EST Fall Risk Scales ABCs Fall Injury Risk Identification : None CRUZ Hx Falls Immediate/Within 3 Months : No Cruz Secondary Diagnosis : Yes CRUZ Use of Ambulatory Aid : Bed rest/Nurse assist CRUZ IV Therapy or IV Access : Yes Cruz Gait/Transferring : Normal, bedrest, immobile Cruz Mental Status : Oriented to own ability Cruz Fall Risk Score : 35 CRUZ Fall Scale Risk Level : 0-24 Low Risk [place] Fall Interventions : Adequate lighting, Bed in low position, Call device within reach, Hourly comfort/safety rounds, Non-slip footwear, Personal items within reach, Reinforced to call for assistance before getting out of bed, Room free of clutter/spills, Upper side-rails up, Wheels locked, Wires/Cords secured Barriers to Learning : None evident Learning Style Preferences Family : None Learning Style Preferences Patient : None WAYNE FAJARDO RN - 11/14/2020 10:01 EST Health Histories Smoking Status : Never (less than 100 in lifetime; none in last 30 days) Smokeless Tobacco Status : Never Implant/Device Type, Certified Nurse Operating Room and Model : right hip replacement WAYNE FAJARDO RN - 11/14/2020 10:01 EST Social History (As Of: 11/14/2020 10:03:28 EST) Tobacco: Smoking Status Never smoker. (Last Updated: 11/30/2016 15:18:41 EST by Rosalind Cruz RN) Never (less than 100 in lifetime) Smoking Status. Never Smokeless Tobacco Status. (Last Updated: 11/06/2020 10:07:52 EST by Donya Ansari RN) Alcohol: Alcohol Use History No. (Last Updated: 11/30/2016 15:18:45 EST by Rsoalind Cruz RN) Alcohol Use History No. (Last [...] No. (Last Updated: 11/06/2020 10:08:52 EST by Donya Ansari RN) Height and Weight, Clinical Dosing Height Source : Measured Height Entry Format : [place] Height, Feet : 0 ft(Converted to: 0 cm, 0 Inch) Height, Inches : 66 Inch(Converted to: 5 ft 6 Inch, 167.64 cm) Clinical Height : 167.64 cm Weight Source : Standing scale Weight Entry Format : [place] Clinical Dosing Weight : 167.27 kg Weight, Pounds : 368 lb Body Surface Area (BSA) : 2.59 m2 Body Mass Index : 59.5 kg/m2 (>HHI) [place] Body Weight : 59 kg WAYNE FAJARDO RN - 11/14/2020 10:01 EST Infectious Disease History Has the patient ever been tested for COVID-19? : Yes, Patient stated results Negative Where was the COVID-19 Testing completed? : [facility] Where are the test results? : Paper Copy on chart Date of COVID-19 test known? : Yes Date of COVID-19 Test : 11/11/2020 EST Does patient have symptoms of COVID-19? : No COVID19 Screening : No Experiencing Infectious Disease Symptoms : No symptoms Physical contact outside [place] in the last 30 days : No Infectious Disease History : Chicken pox/Shingles, Influenza, Measles Tuberculosis Symptoms : None WAYNE FAJARDO RN - 11/14/2020 10:01 EST Influenza Vaccine Asmt, Adult Previous Vaccines from Immunization Schedule : No qualifying data available. Influenza Immunization, Current Season : Yes Influenza Immunization Date : 08/08/2020 EDT WAYNE FAJARDO RN - 11/14/2020 10:01 EST Pneumococcal Vaccine Previous Vaccines from Immunization Schedule : No qualifying data available. Pneumonia Immunization Received : Yes Pneumonia Immunization Date : 08/08/2019 EDT WAYNE FAJARDO RN - 11/14/2020 10:01 EST Order Details Transport Mode Order Detail : Wheelchair Isolation Precautions Order Detail : Standard Precautions Order Detail : 0 IV Order Detail : 1 Oxygen Order Detail : 1 Nurse Collect Order Detail : 0 Lift/Transfer : Minimal Central Line Order Detail : No Room Service : Not Appropriate Arterial Line : No Patient Needs Meds Crushed/Liquid : No WAYNE FAJARDO RN - 11/14/2020 10:01 EST Nutrition History Feeding Ability : Independent Adaptive Feeding Equipment : None Adaptive Feeding Equipment : Regular, Other: low carb high protein Oral Medication Administration : By mouth Eating Poorly Due to Decreased Appetite : No Unplanned Weight Loss in Past 3-6 Months : No Malnutrition Screening Tool Total(mal) : 0 Malnutrition Screening Tool Risk Level : Patient not at risk WAYNE FAJARDO RN - 11/14/2020 10:01 EST [place] Suicide Severity Rating Scale (C-SSRS) CSSRS Past Month Wish to be : No CSSRS Past Month Suicidal Thoughts : No CSSRS Lifetime Suicide Behavior : No Suicide Severity Rating Score : 0 Suicide Severity Rating : No Additional Care Required at this time WAYNE FAJARDO RN - 11/14/2020 10:01 EST Psychosocial History Do You Have a History of the Following? : Depression Currently in Unsafe Situation : No WAYNE FAJARDO RN - 11/14/2020 10:01 EST Sleep Apnea Risk Assmt Hx of Obstructive Sleep Apnea Diagnosis : No Snore Loudly : No Tired, Fatigued, or Sleepy During Day : No Observed Stopping Breathing During Sleep : No Have/Are Being Treated for Hypertension : Yes BMI Greater Than 35 kg/m2 : Yes Age over 50 Years Old : Yes Neck Circumference Greater Than 40 cm : Yes Gender Male : No STOP-BANG Sleep Apnea Risk Level Score : 4 WAYNE FAJARDO RN - 11/14/2020 10:01 EST Valuables and Belongings Valuables and Belongings : Clothing, Personal devices, Personal items, Assistive devices Clothing : Common streetwear Clothing Disposition : Sent to locker, Declines to send to security/safe Personal Device Disposition : Sent to locker, Declines to send to security/safe Personal Devices : Glasses Personal Items : Cell phone Personal Items Disposition : Sent to locker, Declines to send to security/safe Assistive Devices From Home : Walker Assistive Device Disposition : Sent to locker, Declines to send to security/safe WAYNE FAJARDO RN - 11/14/2020 10:01 EST Electronically signed by Paola Minaya Conversion Horticultural Technical Officer Cerner at 2023 6:32 PM CDT documented in this encounter Plan of Treatment Upcoming Encounters Date Type Department Care Team (Late st Contact Info) Description 03/26/2026 1:30 PM EDT Office Visit [facility] Bariatric Services [address] [place] [address] Hammad Jack MD [address] [facility] [address] [place] [address] documented as of this encounter Visit Diagnoses Not on filedocumented in this encounter Care Teams Healthcare Customer Service Relationship Specialty Start Date End Date Emir Goddard MD [address] [facility] [address] [place] [address] PCP - General General Surgery 12/23/22 04/03/24 Dayanna Bang, MAINTENANCE ADVISOR [address] [place] [address] PCP - General Nurse Practitioner 04/04/24 documented as of this encounter
--- OUTSIDE RECORDS SUMMARY | 2025-10-14 15:00 | XMS_ITS | Encounter Summary ---
Author Organization [employer] ([place], [place], [place], [place], [place]) Address [address] [place] [address] Care Team Providers Care Project Engineering Director Name Role Phone Emir Goddard MD Primary Care Provider [phone] Dayanna Bang APRN Primary Care Provider [phone] Encounter Details Date Type Department Care Team (Late st Contact Info) Description 11/14/2020 Transcribed Document [facility] Family Medicine [facility] [place] [address] ProviderAnuj MD [address] [place] [address] Social History Tobacco Use Types Packs/Day [...] Conversion Note - Anuj ProviderMD - 11/14/2020 2:14 PM TYPESETTING MACHINE TENDER Initial Discharge Planning Entered On: 11/14/2020 14:15 EST Performed On: 11/14/2020 14:14 EST by KELLEY THOMPSON, MOISES-Juvenile Detention Officer Initial Assessment I Previously Documented Living Environment : No qualifying data available. Living Situation : Home Patient Lives With : Spouse Emergency Contact #1 : Mallory Ortega Emergency Contact #1 cell Emergency Contact #1 Relationship : Daughter Emergency Contact #2 : . Emergency Contact #2 Phone Number : . Emergency Contact #2 Relationship : . Enter Doctors Name : Ion Cm Does Patient have PCP Listed? : Yes KELLEY THOMPSON RN-Juvenile Detention Officer - 11/14/2020 14:14 EST Initial Assessment II Sensory and Motor Deficits : None Current Home Treatments and Equipment : None KELLEY THOMPSON RN-Juvenile Detention Officer - 11/14/2020 14:14 EST Discharge Needs I Anticipated Discharge Date : 11/15/2020 EST Anticipated Discharge To, CM : Home with family care Current Home Treatment/Equipment : Current Home Treatment/Equipment No qualifying data available. Post Acute/Home Treatments : None Documentation Status Complete : Yes KELLEY THOMPSON RN-Juvenile Detention Officer - 11/14/2020 14:14 EST Discharge Needs II Professional Skilled Services : Professional Skilled Services No qualifying data available. Needs Assistance with Transportation : No Discharge Options Discussed with Patient : Discharge transportation, Outpatient services KELLEY THOMPSON RN-Juvenile Detention Officer - 11/14/2020 14:14 EST Narrative Note Narrative Note : Patient underwent laparoscopic gastrectomy sleeve. Lives at home with family, iADLs. [place], no services needed at this time.....................sds KELLEY THOMPSON RN-Juvenile Detention Officer - 11/14/2020 14:14 EST documented in this encounter Plan of Treatment Upcoming Encounters Date Type Department Care Team (Late st Contact Info) Description 03/26/2026 1:30 PM EDT Office Visit [facility] Bariatric Services [address] [facility] [address] [place] [address] Hammad Jack MD [address] [place] [address] documented as of this encounter Visit Diagnoses Not on filedocumented in this encounter Care Teams Project Engineering Director Relationship Specialty Start Date End Date Emir Goddard MD [address] [facility] [address] [place] [address] PCP - General General Surgery 12/23/22 04/03/24 Dayanna Bang, UNDER SHERIFF [address] [place] [address] PCP - General Nurse Practitioner 04/04/24 documented as of this encounter
--- OUTSIDE RECORDS SUMMARY | 2025-10-14 15:00 | XMS_ITS | Encounter Summary ---
Author Organization [employer] ([place], [place], [place], [place], [place]) Address [address] [place] [address] Care Team Providers Care Stopper Maker Name Role Phone Emir Goddard MD Primary Care Provider [phone] Dayanna Bang APRN Primary Care Provider [phone] Encounter Details Date Type Department Care Team (Late st Contact Info) Description 11/14/2020 Transcribed Document [facility] Family Medicine [facility] [place] [address] ProviderAnuj MD [address] [place] [address] Social History Tobacco Use Types Packs/Day [...] Conversion Note - Anuj ProviderMD - 11/14/2020 3:00 PM AGRICULTURE INTERNSHIP Pain Assessment Entered On: 11/14/2020 18:48 EST Performed On: 11/14/2020 14:37 EST by WAYNE FAJARDO RN Intervention Information: ketorolac Performed by WAYNE FAJARDO RN on 11/14/2020 14:07:00 EST ketorolac,15mg IV Push,Left Antecubital Cherise Pain Assessment Pain Assessment : Follow-up assessment Pain Scale Goal : 4 Pain Scale Used : 0-10 Scale Pain Improved by : Medication Pain Intervention, Drug : Medicated Pain Improved by Intervention : Yes WAYNE FAJARDO RN - 11/14/2020 18:48 EST Pain Scale Intensity : 4 WAYNE FAJARDO RN - 11/14/2020 18:48 EST Image 4 - Images currently included in the form version of this document have not been included in the text rendition version of the form. documented in this encounter Plan of Treatment Upcoming Encounters Date Type Department Care Team (Late st Contact Info) Description 03/26/2026 1:30 PM EDT Office Visit [facility] [place] Bariatric Services [address] [facility] [address] [place] [address] Hammad Jack MD [address] [place] [address] documented as of this encounter Visit Diagnoses Not on filedocumented in this encounter Care Teams Stopper Maker Relationship Specialty Start Date End Date Emir Goddard MD [address] [facility] [address] [place] [address] PCP - General General Surgery 12/23/22 04/03/24 Dayanna Bang, DEVELOPMENT ENG [address] [address] PCP - General Nurse Practitioner 04/04/24 documented as of this encounter
--- OUTSIDE RECORDS SUMMARY | 2025-10-14 15:00 | XMS_ITS | Encounter Summary ---
Author Organization [employer] ([place], [place], [place], [place], [place]) Address [address] [place] [address] Care Team Providers Care Feller Machine Operator Name Role Phone Emir Goddard MD Primary Care Provider [phone] Dayanna Bang APRN Primary Care Provider [phone] Encounter Details Date Type Department Care Team (Late st Contact Info) Description 11/14/2020 Transcribed Document [facility] Family Medicine [address] [place] [address] ProviderAnuj MD [address] [place] [address] Social History Tobacco Use Types Packs/Day [...] Conversion Note - Anuj ProviderMD - 11/14/2020 2:15 PM COTTON WEIGHER Final Discharge Planning Entered On: 11/14/2020 14:15 EST Performed On: 11/14/2020 14:15 EST by KELLEY THOMPSON RN-Injection Molding Process Technician Final Discharge Planning Discharge Arrangements : Patient Post-Acute Information Patient Name: ROSALIND CEDENO Gender: Female : 53 Age: 65 Years No Post-Acute Placement(s) Listed No Post-Acute Service(s) Listed No [place] Referral(s) Listed Transportation Needs : Family/Friend Follow Up Appointment Scheduled : Yes Is Patient High/Moderate Readmission Risk? : No Patient/Family Notified of Plan : Yes Discharge To Care Management : Home/Residential/Assisted or Self Care -01 KELLEY THOMPSON, RN-Injection Molding Process Technician - 11/14/2020 14:15 EST Electronically signed by Rei [facility] Conversion Quality Auditor Cerner at 2023 6:30 PM CDT documented in this encounter Plan of Treatment Upcoming Encounters Date Type Department Care Team (Late st Contact Info) Description 03/26/2026 1:30 PM EDT Office Visit [facility] Bariatric Services [address] [place] [address] Hammad Jack MD [address] [place] [address] documented as of this encounter Visit Diagnoses Not on filedocumented in this encounter Care Teams Feller Machine Operator Relationship Specialty Start Date End Date Emir Goddard MD [address] [place] [address] PCP - General General Surgery 12/23/22 04/03/24 Dayanna Bang, SMELTING ENGINEER [address] [place] [address] PCP - General Nurse Practitioner 04/04/24 documented as of this encounter
--- OUTSIDE RECORDS SUMMARY | 2025-10-14 15:01 | XMS_ITS | Referral Summary ---
Author Organization [employer] ([place], [place], [place], [place], [place]) Address [address] [place] [address] Care Team Providers Care Title Closer Name Role Phone Dayanna Bang APRN Primary Care Provider Allergies Active Allergy Reactions Criticality Noted Date Comments Ezetimibe 10/20/2022 Other reaction(s): Myalgia Patient had increased musculoskeletal pain within 10 days of starting medication that resolved within 5 days of discontinuation. Pmjvfgc-Wjz-Vly Reductase Inhibitors 12/23/2022 Other reaction(s): Muscle weakness-general Sulfa (Sulfonamide Antibiotics) 12/23/2022 Other reaction(s): Hives Medications verapamiL (CALAN-SR) 240 MG CR tablet Take by mouth. 12/19/2022 Active allopurinoL (ZYLOPRIM) 300 MG tablet Take by mouth. 12/19/2022 Active Synthroid 125 mcg tablet Take by mouth. 12/19/2022 Active spironolactone (ALDACTONE) 50 MG tablet Take by mouth. 12/19/2022 Active metoprolol succinate (TOPROL-XL) 50 MG 24 hr tablet Take by mouth. 12/19/2022 Active omeprazole (PriLOSEC) 20 MG capsule Take by mouth. 12/19/2022 Active DULoxetine (CYMBALTA) 30 MG capsule Take 1 capsule (30 mg total) by mouth 2 (two) times daily. 03/14/2025 Active Social History Tobacco Use Types Packs/Day Years Used Date Smoking Tobacco: Never Smokeless Tobacco: Never Alcohol Use Standard Drinks/Week Comments Never 0 (1 standard drink = 0.6 oz pur e alcohol) Family and Community Support Answer Cas e Recorded Help with Day to Day Activities Not on file 11/23/2023 Feeling Lonely or Isolated Not on file 11/23 Educational Attainment Answer Date Willi rded Speak language other than Chadian at home Not on file 11/23/2023 Want help with school or training Not on file 11/23/2023 Substance Use Answer Date Recorded Used prescription meds for non-medical reasons N ot on file 11/23/2023 Used illegal drugs past 12 months Not on file 11/23/2023 Comments Unknown Sex and Gender Information Value Date Recorded Sex Assigned at Female 05/05/2022 8:00 PM CDT Legal Sex Female 8:00 PM CDT Gender Identity Female 05/05/2022 8:00 PM CDT Sexual Orientation Not on file Last Filed Vital Signs Vital Sign Reading Time Taken Comments Blood Pressure 120/72 04/03/2025 2:06 PM EDT Pulse 76 04/03/2025 2:06 PM EDT Temperature - - Respiratory Rate - - Oxygen Saturation - - Inhaled Oxygen Concentration - - Weight 142.4 kg (314 lb) 04/03/2025 2:06 PM EDT Height 170.2 cm (5' 7 ) 12/23/2022 1:41 PM EST Body Mass Index 49.18 12/23/2022 1:41 PM EST Plan of Treatment Upcoming Encounters Date Type Department Care Team (Late st Contact Info) Description 03/26/2026 1:30 PM EDT Office Visit [facility] Bariatric Services [address] [address] Hammad Jack MD [address] [facility] [address] [place] [address] Insurance [address] [place] [phone] [employer] MEDICARE PPO Care Teams Title Closer Relationship Specialty Start Date End Date Radha Bange, CAR WRECKER [address] [place] [address] PCP - General Nurse Practitioner 04/04/24
--- OUTSIDE RECORDS SUMMARY | 2025-10-14 15:01 | XMS_ITS | Encounter Summary ---
Author Organization [employer] ([place], [place], [place], [place], [place]) Address [address] [place] [address] Care Team Providers Care Hot Die Press Feeder Name Role Phone Emir Goddard MD Primary Care Provider [phone] Dayanna Bang APRN Primary Care Provider [phone] Encounter Details Date Type Department Care Team (Late st Contact Info) Description 11/15/2020 Transcribed Document [facility] [place] [facility] [place] [address] ProviderAnuj MD [address] [place] [address] Social History Tobacco Use Types Packs/Day [...] Cerner Conversion Note - Anuj ProviderMD - 11/15/2020 9:00 AM CROWN ASSEMBLY MACHINE SET UP MECHANIC Pain Assessment Entered On: 11/15/2020 11:50 EST Performed On: 11/15/2020 9:23 EST by Mei Funez RN Intervention Information: ketorolac Performed by Mei Funez RN on 11/15/2020 08:53:00 EST ketorolac,15mg IV Push,Left Antecubital [place] Pain Assessment Pain Assessment : Follow-up assessment Pain Scale Goal : 4 Pain Scale Used : 0-10 Scale Mei Funez RN - 11/15/2020 11:50 EST Pain Scale Intensity : 3 Mei Funez RN - 11/15/2020 11:50 EST Image 4 - Images currently included in the form version of this document have not been included in the text rendition version of the form. documented in this encounter Plan of Treatment Upcoming Encounters Date Type Department Care Team (Late st Contact Info) Description 03/26/2026 1:30 PM EDT Office Visit [facility] Bariatric Services [address] [facility] [address] [place] [address] Hammad Jack MD [address] [place] [address] documented as of this encounter Visit Diagnoses Not on filedocumented in this encounter Care Teams Hot Die Press Feeder Relationship Specialty Start Date End Date Emir Goddard MD [address] [facility] [address] [place] [address] PCP - General General Surgery 12/23/22 04/03/24 Dayanna Bang, PARISH [address] [address] PCP - General Nurse Practitioner 04/04/24 documented as of this encounter
--- OUTSIDE RECORDS SUMMARY | 2025-10-14 15:01 | XMS_ITS | Encounter Summary ---
Author Organization [employer] ([place], [place], [place], [place], [place]) Address [address] [place] [address] Care Team Providers Care Surgical Garment Inspector Name Role Phone Emir Goddard MD Primary Care Provider [phone] Dayanna Bang APRN Primary Care Provider + [phone] Encounter Details Date Type Department Care Team (Late st Contact Info) Description 11/14/2020 Transcribed Document [facility] [place] [address] ProviderAnuj MD [address] [place] [id number] Social History Tobacco Use Types Packs/Day [...] - Anuj ProviderMD - 11/14/2020 2:15 PM GUSSET RIPPER On Going Discharge Planning Entered On: 11/14/2020 14:15 EST Performed On: 11/14/2020 14:15 EST by KELLEY THOMPSON, MOISES-Mold RunnerTransmission Rebuilder Progress Note Discharge Arrangements : Patient Post-Acute Information Patient Name: ROSALIND CEDENO Gender: Female : 53 Age: 65 Years No Post-Acute Placement(s) Listed No Post-Acute Service(s) Listed No [place] Referral(s) Listed Discharge Options Discussed with Patient : Discharge transportation, Outpatient services Barriers to Discharge Identified : Clinical Condition of Patient, Follow-Up appointments needed Barriers to Discharge Unresolved : Clinical Condition of Patient Is the Patient Meeting Medical Necessity : Yes KELLEY THOMPSON, RN-Mold Runner - 11/14/2020 14:15 EST Electronically signed by [facility], [facility] Conversion Preparer Making Department Cerner at 2023 6:39 PM CDT documented in this encounter Plan of Treatment Upcoming Encounters Date Type Department Care Team (Late st Contact Info) Description 03/26/2026 1:30 PM EDT Office Visit [facility] Services [address] [facility] [address] [place] [address] Hammad Jack MD [address] [place] [address] documented as of this encounter Visit Diagnoses Not on filedocumented in this encounter Care Teams Surgical Garment Inspector Relationship Specialty Start Date End Date Emir Goddard MD [address] [place] [address] PCP - General General Surgery 12/23/22 04/03/24 Dayanna Bang, DUMP ATTENDANT [address] [id number] PCP - General Nurse Practitioner 04/04/24 documented as of this encounter
--- OUTSIDE RECORDS SUMMARY | 2025-10-14 15:01 | XMS_ITS | Encounter Summary ---
Author Organization [employer] ([place], [place], [place], [place], [place]) Address [address] [place] [address] Care Team Providers Care Billing Clerk Name Role Phone Emir Cantu MD Primary Care Provider [phone] Dayanna Bang APRN Primary Care Provider [phone] Encounter Details Date Type Department Care Team (Late st Contact Info) Description 08/30/2020 Transcribed Document [facility] [place] [address] ProviderAnuj MD [address] [place] [address] [id number] Social History Tobacco Use Types Packs/Day Years Used Date Smoking Tobacco: Never Assessed Comments Unknown Sex and Gender Information Value Date Recorded Sex Assigned at Female 05/05/2022 8:00 PM CDT Legal Sex Female 8:00 PM CDT Gender Identity Female 05/05/2022 8:00 PM CDT Sexual Orientation Not on file documented as of this encounter Miscellaneous Notes * Cerner Conversion Note - Anuj Dueñas MD - 08/30/2020 2:54 PM CDT [address] [address] ROSALIND CEDENO :1955 Visit Time:08/30/2020 What to do next Your Diagnosis Gastro-esophageal reflux disease without esophagitis, Gastro-esophageal reflux disease without esophagitis Instructions From Your Care Team Diet after Discharge: Resume usual diet as tolerated, Do not drink any alcoholic beverages, Drink at least 8-10 glasses of water per day_ Activity after Discharge: As tolerated, Rest and relax today, _ Lifting Restrictions: No heavy lifting Driving after Discharge: Do not drive for 24 hours May Return to Work/School: Tomorrow Notify Provider of: With any questions or concerns. Follow-Up Appointments Follow Up with EMIR CANTU MD When Comments Call with an questions or concerns Where: [address] [facility] [address] [place] [address]- Medications What How Much When Instructions Next Dose allopurinol (allopurinol 300 mg oral tablet) 1 Tablet(s) Oral Every Day aspirin 81 Milligram(s) Oral Every Day cholecalciferol (Vitamin D3 1000 intl units oral tablet) 3 Tablet(s) Oral Every Day colchicine (colchicine 0.6 mg oral capsule) 1 Capsule(s) Oral Every Day cranberry (Cranberry oral tablet) 1 Tablet(s) Oral Every Day hydrochlorothiazide-spironolactone (hydrochlorothiazide-spironolactone 25 mg-25 mg oral tablet) 2 Tablet(s) Oral Every Day levothyroxine (Synthroid 125 mcg (0.125 mg) oral tablet) 1 Tablet(s) Oral Every Day loratadine (Claritin) 10 Milligram(s) Every Day meloxicam (Mobic 7.5 mg oral tablet) Oral Every Day meloxicam (Mobic) 15 Milligram(s) Oral Every Day metoprolol (Metoprolol Tartrate 50 mg oral tablet) 1.5 Tablet(s) Oral At Bedtime morphine (MS Contin) 15 Milligram(s) Oral Interval Every 12 Hours multivitamin (Multi Vitamin+) nitrofurantoin (Macrobid 100 mg oral capsule) 1 Capsule(s) Oral Two Times A Day potassium chloride (potassium chloride 20 mEq oral tablet, extended release) 1 Tablet(s) Oral Two Times A Day salsalate (salsalate 750 mg oral tablet) 2 Tablet(s) Oral Two Times A Day sertraline 25 Milligram(s) Oral Every Day sertraline (Zoloft) Oral Every Day ubiquinone (CoQ10) 100 Milligram(s) Oral Every Day verapamil (verapamil 240 mg/ 24 hours oral tablet, extended release) 2 Tablet(s) Oral At Bedtime Take your medications faithfully. Do NOT skip medication. Do NOT stop taking medications without the direction of a physician. Carry a list of your medications with you at all times, and take this medication list with you to your first follow up visit. Report any side effects. Avoid herbal remedies unless discussed with your physician. As part of your treatment plan, your physician may have prescribed a limited course of a controlled substance. This medication may be given to help people with moderate or severe pain or for other medical conditions, but there are risks involved with treatment. Common side effects may include nausea, constipation, drowsiness, sweating, itching, dry mouth, and rash. More serious side effects may include cognitive and motor impairment, like problems with thinking, concentrating, alertness, and movement (e.g. slowed reflexes), and driving and operating heavy machinery can be dangerous. It is important for you to talk to your physician if you have these side effects or questions. These controlled substances can produce physical dependence and be habit-forming if taken for an extended period of time, which means that the body has gotten used to them and may experience withdrawal symptoms if they are abruptly stopped. Withdrawal symptoms can include runny nose, sweating, goose bumps, diarrhea, abdominal cramping, rapid heartbeat, difficulty sleeping, and nervousness. Please dispose of unused and medications per pharmacy guidance. Education Materials Gastritis, Adult Gastritis is swelling (inflammation) of the stomach. Gastritis can develop quickly (acute). It can also develop slowly over time (chronic). It is important to get help for this condition. If you do not get help, your stomach can bleed, and you can get sores (ulcers) in your stomach. What are the causes? This condition may be caused by: ??? Germs that get to your stomach. ??? Drinking too much alcohol. ??? Medicines you are taking. ??? Too much acid in the stomach. ??? A disease of the intestines or stomach. ??? Stress. ??? An allergic reaction. ??? Crohn's disease. ??? Some cancer treatments (radiation). Sometimes the cause of this condition is not known. What are the signs or symptoms? Symptoms of this condition include: ??? Pain in your stomach. ??? A burning feeling in your stomach. ??? Feeling sick to your stomach (nauseous). ??? Throwing up (vomiting). ??? Feeling too full after you eat. ??? Weight loss. ??? Bad breath. ??? Throwing up blood. ??? Blood in your poop (stool). How is this diagnosed? This condition may be diagnosed with: ??? Your medical history and symptoms. ??? A physical exam. ??? Tests. These can include: ? Blood tests. ? Stool tests. ? A procedure to look inside your stomach (upper endoscopy). ? A test in which a sample of tissue is taken for testing (biopsy). How is this treated? Treatment for this condition depends on what caused it. You may be given: ??? Antibiotic medicine, if your condition was caused by germs. ??? H2 blockers and similar medicines, if your condition was caused by too much acid. Follow these instructions at home: Medicines ??? Take kjae-cci-lmyurcy and prescription medicines only as told by your doctor. ??? If you were prescribed an antibiotic medicine, take it as told by your doctor. Do not stop taking it even if you start to feel better. Eating and drinking ??? Eat small meals often, instead of large meals. ??? Avoid foods and drinks that make your symptoms worse. ??? Drink enough fluid to keep your pee (urine) pale yellow. Alcohol use ??? Do not drink alcohol if: ? Your doctor tells you not to drink. ? You are , may be , or are planning to become . ??? If you drink alcohol: ? Limit your use to: ? 0???1 drink a day for women. ? 0???2 drinks a day for men. ? Be aware of how much alcohol is in your drink. In the [place] one drink equals one 12 oz bottle of beer (355 mL), one 5 oz glass of wine (148 mL), or one 1?? oz glass of hard liquor (44 mL). General instructions ??? Talk with your doctor about ways to manage stress. You can exercise or do deep breathing, meditation, or yoga. ??? Do not smoke or use products that have nicotine or tobacco. If you need help quitting, ask your doctor. ??? Keep all follow-up visits as told by your doctor. This is important. Contact a doctor if: ??? Your symptoms get worse. ??? Your symptoms go away and then come back. Get help right away if: ??? You throw up blood or something that looks like coffee grounds. ??? You have black or dark red poop. ??? You throw up any time you try to drink fluids. ??? Your stomach pain gets worse. ??? You have a fever. ??? You do not feel better after one week. Summary ??? Gastritis is swelling (inflammation) of the stomach. ??? You must get help for this condition. If you do not get help, your stomach can bleed, and you can get sores (ulcers). ??? This condition is diagnosed with medical history, physical exam, or tests. ??? You can be treated with medicines for germs or medicines to block too much acid in your stomach. This information is not intended to replace advice given to you by your health care provider. Make sure you discuss any questions you have with your health care provider. Document Released: 04/12/2009 Document Revised: 03/14/2019 Document Reviewed: 03/14/2019 [employer] Patient Education ?? 2020 [employer]. Monitored Anesthesia Care, Care After These instructions provide you with information about caring for yourself after your procedure. Your health care provider may also give you more specific instructions. Your treatment has been planned according to current medical practices, but problems sometimes occur. Call your health care provider if you have any problems or questions after your procedure. What can I expect after the procedure? After your procedure, you may: ??? Feel sleepy for several hours. ??? Feel clumsy and have poor balance for several hours. ??? Feel forgetful about what happened after the procedure. ??? Have poor judgment for several hours. ??? Feel nauseous or vomit. ??? Have a sore throat if you had a breathing tube during the procedure. Follow these instructions at home: For at least 24 hours after the procedure: ??? Have a responsible adult stay with you. It is important to have someone help care for you until you are awake and alert. ??? Rest as needed. ??? Do not: ? Participate in activities in which you could fall or become injured. ? Drive. ? Use heavy machinery. ? Drink alcohol. ? Take sleeping pills or medicines that cause drowsiness. ? Make important decisions or sign legal documents. ? Take care of children on your own. Eating and drinking ??? Follow the diet that is recommended by your health care provider. ??? If you vomit, drink water, juice, or soup when you can drink without vomiting. ??? Make sure you have little or no nausea before eating solid foods. General instructions ??? Take tyfz-bpv-fqlulqh and prescription medicines only as told by your health care provider. ??? If you have sleep apnea, surgery and certain medicines can increase your risk for breathing problems. Follow instructions from your health care provider about wearing your sleep device: ? Anytime you are sleeping, including during daytime naps. ? While taking prescription pain medicines, sleeping medicines, or medicines that make you drowsy. ??? If you smoke, do not smoke without supervision. ??? Keep all follow-up visits as told by your health care provider. This is important. Contact a health care provider if: ??? You keep feeling nauseous or you keep vomiting. ??? You feel light-headed. ??? You develop a rash. ??? You have a fever. Get help right away if: ??? You have trouble breathing. Summary ??? For several hours after your procedure, you may feel sleepy and have poor judgment. ??? Have a responsible adult stay with you for at least 24 hours or until you are awake and alert. This information is not intended to replace advice given to you by your health care provider. Make sure you discuss any questions you have with your health care provider. Document Released: 02/14/2017 Document Revised: 01/23/2019 Document Reviewed: 02/14/2017 [employer] Patient Education ?? 2020 [employer] ESOPHAGOGASTRODUODENOSCOPY Care After Read the instructions outlined below and refer to this sheet over the next few days. These discharge instructions provide you with general information on caring for yourself after you leave the hospital. Your doctor may also give you specific instructions. While your treatment has been planned according to the most current medical practices available, unavoidable complications occasionally occur. If you have any problems or questions after discharge, call your doctor. HOME CARE INSTRUCTIONS: ACTIVITY: ??? You may resume your regular activity tomorrow, but move at a slower pace for the next 24 hours. ??? Take frequent rest periods for the next 24 hours. ??? Walking will help get rid of the air and reduce the bloated feeling in your belly (abdomen). ??? No driving for 24 hours because of the medication (sedation) used during the test. ??? You may shower. ??? Do not sign any important legal documents or operate any machinery for 24 hours (because of the sedation used during the test). NUTRITION: ??? Drink plenty of fluids. ??? You may resume your normal diet or as instructed by your doctor ??? Begin with a light meal and progress to your normal diet. Heavy or fried foods are harder to digest and may make you feel sick to your stomach (nauseated). ??? Avoid alcoholic beverages for 24 hours or as instructed. MEDICATIONS: ??? You may resume your normal medications unless your doctor tells you otherwise. WHAT TO EXPECT TODAY: ??? Some feelings of bloating in the abdomen. ??? Excessive burping today and passage of more gas than usual. ??? A sore throat can be normal. Use throat lozenges or gargle with warm salt water and drink plenty of fluids. FINDING OUT THE RESULTS OF YOUR TEST: ??? Not all test results are available during your visit. If you had biopsies or other tests done during your procedure, you can make an appointment with your doctor to get the results. Sometimes you may be instructed to call the doctor???s office for your results. It is important for you to follow up on all of your test results. SEEK IMMEDIATE MEDICAL CARE IF: ??? You cannot eat or drink. ??? You have worsening throat or chest pain. ??? You have dizziness, lightheadedness, or you faint. ??? You have severe nausea or vomiting. ??? You have a fever greater than 101. ??? You have chills. ??? You have severe abdominal pain or discomfort that gets worse throughout the day. ??? You have black, tarry, or bloody stools. Emergency Awareness and Preventative Care STROKE is an EMERGENCY Every Minute Counts Act FAST and Check for these signs: FACE Does the face look uneven? ARM Does one arm drift down? SPEECH Does their speech sound strange? TIME Call at any sign of stroke Stroke Risk Factors Atrial Fibrillation (irregular heartbeat) Diabetes Family history of stroke Heart Disease Heavy alcohol use High Blood Pressure High Cholesterol Physical inactivity and obesity Smoking Cigarette Smoking The facts are clear, cigarette smoking will shorten your life. Smoking can cause many illnesses along the way. As a healthcare provider, we recommend that you stop smoking. Assistance with quitting is available by contacting 1-899-DFMBNOW. This is a free resource providing counseling, support, and referral. Or you may contact your personal physician. [place] Suicide Prevention Lifeline: The National Suicide Prevention Lifeline is a national network of local crisis centers that provides free and confidential emotional support to people in suicidal crisis or emotional distress 24 hours a day, 7 days a week. Don't Wait! Stop a Heart Attack Before it Starts What is a heart attack? A heart attack is damage or to a part of the heart from severely decreased or lack of blood flow to the heart. Over time, arteries can become narrow from the buildup of fat and cholesterol, which is called plaque. The plaque can rupture causing a blood clot to form. When the blood clot forms, the artery can become severely narrowed or completely blocked, causing a heart attack. Heart attack is the leading cause of in the [place]. 85% of muscle damage occurs within the first 2 hours. Delay in the recognition of heart attack symptoms increases the chances of . Know the early symptoms of a heart attack: Nausea Feeling of fullness in chest Jaw Pain Pain that travels down one or both arms Fatigue/being tired Anxiety Back Pain Chest pressure, squeezing, or discomfort Shortness of breath Sweating, or a cold sweat Feeling of impending doom There are unusual signs of a heart attack, too! Women, the elderly, and diabetics may present with atypical symptoms: Fainting/dizziness Weakness Confusion Risk Factors for a Heart Attack Some heart disease risk factors, such as age and family history, cannot be changed. Others, like smoking and lack of exercise, can be changed. Smoking High Cholesterol High Blood Pressure Family History Obesity Age Gender (Males are at higher risk) Lack of Exercise Diabetes Diet Stress Excessive Alcohol Intake If you or someone you know is experiencing the signs and symptoms of a heart attack, DON???T DELAY. Call immediately and seek help. If someone collapses, perform CPR! Do not attempt to drive if you are having symptoms of heart attack. Hands-Only CPR Why Hands-Only CPR? Hands-Only CPR has been shown to be as effective as conventional CPR for cardiac arrests that occur outside of a hospital. Survival depends on immediately receiving CPR from someone nearby. How do you perform Hands-Only CPR? There are two easy steps: Call 9-1-1 if you see a teen or adult collapse Push hard and fast in the center of the chest at a beat of 100 beats per minute. Save a life! 4 WAYS TO GET AHEAD OF SEPSIS SEPSIS is a MEDICAL EMERGENCY. Time matters! Infections put you and your family at risk for a life-threatening condition called sepsis. Sepsis is the body's extreme response to an infection. It is life-threatening, and without timely treatment, sepsis can rapidly lead to tissue damage, organ failure, and . Sepsis happens when an infection you already have-in your skin, lungs, urinary tract or somewhere else-triggers a chain reaction throughout your body. 1 PREVENT INFECTIONS Take good care of chronic conditions. Talk to your doctor about getting the recommended vaccines. 2 PRACTICE GOOD HYGIENE Wash your hands frequently. Keep cuts or open sores clean and covered until they are healed. 3 KNOW THE SYMPTOMS Confusion or disorientation Shortness of breath High heart rate Fever, shivering, or feeling very cold Extreme pain or discomfort Clammy or sweaty skin 4 ACT FAST Get medical care IMMEDIATELY if you suspect sepsis or if you have an infection that is not getting better or is getting worse. To learn more about sepsis and how to prevent infections, visit www.cdc.gov/sepsis. Test Results Laboratory or Other Results This Visit (last charted value for your 08/30/2020 visit) Hematology 08/30/2020 1:39 PM WBC: 13.3 K/uL -- Normal range between ( 3.9 and 10.0 ) RBC: 4.76 Million/uL -- Normal range between ( 3.93 and 5.22 ) Hct: 47.2 % -- Normal range between ( 34.1 and 44.9 ) Hgb: 14.9 Gram/dL -- Normal range between ( 11.2 and 15.7 ) Platelet Count: 295 K/uL -- Normal range between ( 163 and 369 ) MCH: 31.3 pg -- Normal range between ( 25.6 and 32.2 ) MCHC: 31.6 Gram/dL -- Normal range between ( 32.3 and 36.5 ) MCV: 99.2 fL -- Normal range between ( 79.0 and 94.8 ) Slide Review: No Eos %: 2.8 % -- Normal range between ( 1.0 and 7.0 ) Winkler #: 1.22 K/uL -- Normal range between ( 0.24 and 0.82 ) Eos #: 0.37 K/uL -- Normal range between ( 0.04 and 0.54 ) Winkler %: 9.1 % -- Normal range between ( 4.7 and 12.5 ) Baso %: 0.4 % -- Normal range between ( 0.0 and 1.0 ) Baso #: 0.05 K/uL -- Normal range between ( 0.01 and 0.08 ) RDW: 14.5 % -- Normal range between ( 11.6 and 14.4 ) Neut %: 65.1 % -- Normal range between ( 34.0 and 71.0 ) Neut #: 8.69 K/uL -- Normal range between ( 1.56 and 6.13 ) Lymph %: 22.2 % -- Normal range between ( 19.3 and 53.0 ) Lymph #: 2.96 K/uL -- Normal range between ( 1.18 and 3.74 ) MPV: 11.7 fL -- Normal range between ( 9.4 and 12.4 ) IG#: 0 x10(3)/uL IG%: 0 % -- Normal range between ( 0 and 1 ) General Chemistry 08/30/2020 1:39 PM Creatinine Level: 1.18 mg/dL -- Normal range between ( 0.55 and 1.02 ) Sodium Level: 142 mmol/L -- Normal range between ( 136 and 146 ) Potassium Level: 4.2 mmol/L -- Normal range between ( 3.5 and 5.1 ) Chloride Level: 104 mmol/L -- Normal range between ( 102 and 112 ) Carbon Dioxide Level: 28 mmol/L -- Normal range between ( 21 and 32 ) Anion Gap: 14 -- Normal range between ( 9 and 20 ) Bilirubin Total: 0.4 mg/dL -- Normal range between ( 0.2 and 1.3 ) A/G Ratio: 1.0 -- Normal range between ( 1.1 and 2.5 ) ALT: 29 Units/Liter -- Normal range between ( 12 and 78 ) AST: 24 Units/Liter -- Normal range between ( 5 and 37 ) Globulin: 3.8 Gram/dL -- Normal range between ( 1.5 and 4.5 ) Alk Phos: 72 Units/Liter -- Normal range between ( 27 and 136 ) Bun/Creatinine: 23.7 -- Normal range between ( 8.0 and 20.0 ) Calcium Level: 9.7 mg/dL -- Normal range between ( 8.5 and 10.1 ) eGFR : 56 mL/min/1.73m2 eGFR NonAfrican: 46 mL/min/1.73m2 Glucose Level: 77 mg/dL -- Normal range between ( 74 and 106 ) Blood Urea Nitrogen: 28 mg/dL -- Normal range between ( 7 and 22 ) Protein Total: 7.7 Gram/dL -- Normal range between ( 6.4 and 8.2 ) Albumin Level: 3.9 Gram/dL -- Normal range between ( 3.4 and 5.0 ) Coagulation 08/30/2020 1:39 PM INR: 1.0 -- Normal range between ( 0.9 and 1.1 ) PTT: 32.5 Second(s) -- Normal range between ( 24.2 and 31.8 ) PT: 10.8 Second(s) -- Normal range between ( 9.6 and 11.5 ) Lipid Studies 08/30/2020 1:39 PM Cholesterol Tot: 302 mg/dL -- Normal range between ( 0 and 199 ) Cholesterol HDL: 44.0 mg/dL Cholesterol LDL Calculation: 148.4 mg/dL -- Normal range between ( 0.0 and 99.0 ) Cholesterol VLDL Calculation: See Comment mg/dL -- Normal range between ( 5.0 and 40.0 ) Cholesterol/HDL Ratio: 6.9 -- Normal range between ( 0.0 and 3.2 ) Triglyceride: 548 mg/dL -- Normal range between ( 0 and 249 ) LDL/HDL Ratio: 3.4 -- Normal range between ( 0.0 and 3.2 ) Patient Name:ROSALIND CEDENO I have received this information and was given the opportunity to ask questions. Patient/Population Health Manager Name: Patient/Population Health Manager Signature: Relationship to Patient: Clinician/Hospital Population Health Manager Signature: Date: Electronically signed by Paola Minaya Conversion Marketing Intelligence Analyst Cerner at 2023 6:32 PM CDT documented in this encounter Plan of Treatment Upcoming Encounters Date Type Department Care Team (Late st Contact Info) Description 03/26/2026 1:30 PM EDT Office Visit [facility] [place] [address] Hammad Jack MD [facility] [address] [place] [address] documented as of this encounter Visit Diagnoses Not on filedocumented in this encounter Care Teams Billing Clerk Relationship Specialty Start Date End Date Emir Cantu MD [address] [address] PCP - General General Surgery 12/23/22 04/03/24 Dayanna Bang, [place] [address] [address] PCP - General Nurse Practitioner 04/04/24 documented as of this encounter
--- OUTSIDE RECORDS SUMMARY | 2025-10-14 15:01 | XMS_ITS | Encounter Summary ---
Author Organization [employer] ([place], [place], [place], [place], [place]) Address [address] [place] [address] Care Team Providers Care Fine Dining Server Name Role Phone Emir Cantu MD Primary Care Provider [phone] Dayanna Bang APRN Primary Care Provider [phone] Encounter Details Date Type Department Care Team (Late st Contact Info) Description 11/18/2020 Transcribed Document [facility] [place] [facility] [place] [address] ProviderAnuj MD [address] [place] [address] Social History Tobacco Use Types Packs/Day [...] Cerner Conversion Note - Anuj ProviderMD - 11/18/2020 10:38 AM BRAND SALES CONSULTANT Patient: ROSALIND CEDENO Age: 65 Years Sex: Female : 1955 Admit Date 11/14/2020 03:46 Discharge Date 11/15/2020 13:05 Primary Care Provider RONALD MARQUES MD-FAM Discharge Diagnosis Morbid obesity 11/15/2020 E66.01 ICD-10-CM Secondary discharge diagnoses Hypertension Hypothyroidism Osteoarthritis Situational depression Procedures SN - Proc - Procedure: Gastrectomy Sleeve Laparoscopic (11/14/20 07:59:23) Reason for Hospitalization is a 65-year-old patient with nursing home history of morbid obesity, has tried multiple conservative therapies for losing weight and they were all unsuccessful. After discussing all the risks and benefits of procedure and reviewing all the medical history, the patient decided to consent for it. [1] Hospital Course On the day of admission the patient was taken to the operating room by Drs. Jaffe where she underwent surgical procedure listed above. This was tolerated by the patient without any complications. Postoperatively the patient was taken to recovery room followed by admission to the medical surgical floor. On the first postoperative day patient was afebrile and her vital signs were stable. She was having only minimal tenderness to palpation along her surgical incision sites. Her abdomen was soft and nondistended. She was not having any nausea or vomiting. On the first postoperative day patient was begun on ambulation multiple times a day in the solorzano. Additionally she was started on a bariatric stage I liquid diet. Following reevaluation the same day the patient continued to do well and at that time was stable for discharge home. Discharge Disposition Home Discharge Follow Up EMIR CANTU MD - 09:15 AM Discharge Medications (11) Active allopurinol 300 mg oral tablet 300 mg = 1 Tab, Oral, Daily metoprolol succinate 50 mg, Oral, At Bedtime nitrofurantoin macrocrystals 50 mg oral capsule 50 mg = 1 Cap, Oral, Daily oxyCODONE 5 mg oral tablet 5 mg = 1 Tab, PRN, Oral, Q6H potassium chloride 20 mEq oral tablet, extended release 20 mEq = 1 Tab, Oral, BID PriLOSEC 20 mg oral delayed release capsule 20 mg = 1 Cap, Oral, Daily sertraline 25 mg, Oral, Daily spironolactone 50 mg, Oral, Daily Synthroid 125 mcg (0.125 mg) oral tablet 125 mcg = 1 Tab, Oral, Daily verapamil 240 mg/24 hours oral capsule, extended release 480 mg = 2 Cap, Oral, At Bedtime Zofran 4 mg oral tablet 4 mg = 1 Tab, PRN, Oral, Q8H Code Status No Code Status Order on Record Condition on Discharge Stable Consulting Physicians MIGUEL RESTREPO, DAYO Current Diet Order No qualifying data available. Patient Discharge Summary Orders Discharge Follow Up Instructions: call office on wednesday for followup appointment Follow Up Instructions: followup next weekCall for [id number] Activity: Discharge Activity: No heavy lifting over 10 lbs Diet: Warm liquids in the morning. May progress to full liquids and soft high protein foods as tolerated (Cottage cheese, chicken salad, eggs, etc). Make sure foods are wet . Drink 64 oz of fluids per day. Refer to [facility]mkar-handbook., Discharge Diet: Other (see Special Instructions) [2] [1] Op Note; EMIR CANTU MD 11/14/2020 09:12 EST [2] Inpatient Discharge Instructions; Ange Dunn RN 11/15/2020 09:18 EST Electronically signed by [facility] Conversion Oxygen Therapy Teacher Cerner at 2023 6:37 PM CDT documented in this encounter Plan of Treatment Upcoming Encounters Date Type Department Care Team (Late st Contact Info) Description 03/26/2026 1:30 PM EDT Office Visit [facility] Bariatric Services [address] [facility] [address] [place] [address] Hammad Jack MD [address] [place] [id number] documented as of this encounter Visit Diagnoses Not on filedocumented in this encounter Care Teams Fine Dining Server Relationship Specialty Start Date End Date Emir Cantu MD [address] [facility] [address] [place] [address] PCP - General General Surgery 12/23/22 04/03/24 Dayanna Bang, PARISH [address] [address] PCP - General Nurse Practitioner 04/04/24 documented as of this encounter
--- OUTSIDE RECORDS SUMMARY | 2025-10-14 15:01 | XMS_ITS | Encounter Summary ---
Author Organization [employer] ([place], [place], [place], [place], [place]) Address [address] [place] [address] Care Team Providers Care Compensation Coordinator Name Role Phone Emir Goddard MD Primary Care Provider [phone] Dayanna Bang APRN Primary Care Provider [phone] Encounter Details Date Type Department Care Team (Late st Contact Info) Description 11/14/2020 Transcribed Document [facility] [place] [address] ProviderAnuj MD [address] [place] [address] Social History Tobacco Use Types Packs/Day Years Used Date Smoking Tobacco: Never Assessed Comments Unknown Sex and Gender Information Value Date Recorded Sex Assigned at Female 05/05/2022 8:00 PM CDT Legal Sex Female 8:00 PM CDT Gender Identity Female 05/05/2022 8:00 PM CDT Sexual Orientation Not on file documented as of this encounter Miscellaneous Notes * [place] Conversion Note - Historical ProviderMD - 11/14/2020 6:47 AM VENUE COORDINATOR Pre Procedure Adult Entered On: 11/14/2020 6:53 EST Performed On: 11/14/2020 6:47 EST by Hiwot Canchola RN Height and Weight, Clinical Dosing Height Source : Measured Height Entry Format : [place] Height, Feet : 0 ft(Converted to: 0 cm, 0 Inch) Height, Inches : 66 Inch(Converted to: 5 ft 6 Inch, 167.64 cm) Clinical Height : 167.64 cm Weight Source : Standing scale Weight Entry Format : [place] Clinical [facility] Weight : 167.27 kg Weight, Pounds : 368 lb Body Surface Area (BSA) : 2.59 m2 Body Mass Index : 59.5 kg/m2 (>HHI) [place] Body Weight : 59 kg [place] MOISES Childs - 11/14/2020 6:47 EST Health Histories Smoking Status : Never (less than 100 in lifetime; none in last 30 days) Smokeless Tobacco Status : Never Implant/Device Type, Casino Floor Runner and Model : right hip replacement Hiwot Canchola RN - 11/14/2020 6:47 EST Social History (As Of: 11/14/2020 06:53:14 EST) Tobacco: Smoking Status Never smoker. (Last [...] 11/06/2020 10:08:52 EST by Donya Ansari RN) Infectious Disease History Has the patient ever been tested for COVID-19? : Yes, Patient stated results Negative Where was the COVID-19 Testing completed? : [facility] Where are the test results? : Paper [...] pox/Shingles, Influenza, Measles Tuberculosis Symptoms : None Hiwot Canchola RN - 11/14/2020 6:47 EST COVID19 PreProcedure Screening Is this an Emergent or Add on Procedure? : No Date PreProcedure COVID-19 test known? : Yes Date of PreProcedure COVID-19 : 11/11/2020 EST Has patient been isolated since the test : Yes Exposed to COVID19 symptoms since test? : No Hiwot Canchola RN - 11/14/2020 6:47 EST Anesthesia/Transfusion History Family History of Anesthesia Reaction : No prior transfusion(s) Transfusion History : Prior anesthesia without reaction Family History of Anesthesia Reaction : None Hiwot Canchola RN - 11/14/2020 6:47 EST Functional Assessment Living Situation : Home Patient Lives With : Spouse Persons Assisting Patient at Home : Child/Children, Spouse Current Daily Living Assistance : None Sensory Deficits : None Mobility Assistance Prior to Admission : Partial assistance CRUZ Hx Falls Immediate/Within 3 Months : No Current Home Treatments : None Professional Skilled Services : None Special Services and Community Resources : None Hiwot Canchola RN - 11/14/2020 6:47 EST Sharkey Suicide Severity Rating Scale (C-SSRS) CSSRS Past Month Wish to be : No CSSRS Past Month Suicidal Thoughts : No CSSRS Lifetime Suicide Behavior : No Suicide Severity Rating Score : 0 Suicide Severity Rating : No Additional Care Required at this time Hiwot Canchola RN - 11/14/2020 6:47 EST Psychosocial History Do You Have a History of the Following? : Depression Currently in Unsafe Situation : No Hiwot Canchola RN - 11/14/2020 6:47 EST Advance Directive Patient has Advance Directive *Q : Yes, Advance Directive not with the patient Advance Directive Type : Living will Copy Advance Directive Verified/on Chart : No Hiwot Canchola RN - 11/14/2020 6:47 EST Spiritual/Cultural Needs Any Spiritual/Cultural Needs or Requests : Yes Hiwot Canchola RN - 11/14/2020 6:47 EST Teaching/Learning Assessment Barriers To Learning : None evident Individuals Taught : Patient Readiness to Learn : Cooperative Readiness to Learn : Explanation Learning Style Preferences Patient : None Learning Style Preferences Family : None Hiwot Canchola RN - 11/14/2020 6:54 EST Education Topics, Periop Preadmission Perioperative Education Grid Falls : Verbalizes understanding Infection Control : Verbalizes understanding IV's : Verbalizes understanding NPO Status/Directions : Verbalizes understanding Pain Management : Verbalizes understanding Postoperative Care Preparations : Verbalizes understanding Preprocedure Preparations : Verbalizes understanding Preprocedure Tests/Labs : Verbalizes understanding Hiwot Canchola RN - 11/14/2020 6:54 EST General Info Preferred Name : Rosalind Arrived From : Home Mode of Arrival on Unit : Ambulatory Patient Arrival Date/Time : 11/14/2020 5:35 EST Legal Guardian : Unaccompanied Want Family/Rep/Phys Notified of Admit : No Emergency Contact #1 : Mallory Ortega Emergency Contact #1 Emergency Contact #1 Relationship : Daughter Emergency Contact #2 : . Emergency Contact #2 Phone Number : . Emergency Contact #2 Relationship : . Information Obtained From : Patient Primary Language : Vincentian Preferred Communication Mode : Verbal Communication Barrier : None Automation Machine Operator Needed : No Currently Lactating : No Status : Patient denies Hiwot Canchola RN - 11/14/2020 6:54 EST Vital Measurements Temperature Source : Temporal artery scanning Temperature Mode : Fahrenheit Temperature, Fahrenheit : 98.5 Deg F Clinical Temperature, C : 36.9 Deg C Heart Rate, Apical : 65 bpm Respiratory Rate : 16 Breaths/Min Blood Pressure Location : Arm, left lower Systolic Blood Pressure : 150 mmHg (HI) Diastolic Blood Pressure : 69 mmHg Oxygen Saturation : 95 % Oxygen Therapy Mode : Room air Hiwot Canchola RN - 11/14/2020 6:54 EST Sleep Apnea Risk Assmt Hx of [...] Sleep Apnea Risk Level Score : 4 Hiwot Canchola RN - 11/14/2020 6:54 EST Dimitris Scale Dimitris Sensory Perception : No impairment Dimitris Moisture : Rarely moist Dimitris Activity : Walks occasionally Dimitris Mobility : Slightly limited Dimitris Nutrition : Adequate Dimitris Friction and Shear : No apparent problem Dimitris Score : 20 Hiwot Canchola RN - 11/14/2020 6:54 EST Oxygen Therapy Oxygen Therapy Mode : Room air Hiwot Canchola RN - 11/14/2020 6:54 EST Pain Assessment Pain Assessment : Initial assessment Pain Scale Goal : 4 Pain Scale Used : 0-10 Scale Hiwot Canchola RN - 11/14/2020 6:54 EST Fall Risk Scales ABCs Fall Injury Risk Identification : None CRUZ Hx Falls Immediate/Within 3 Months : No Cruz Secondary Diagnosis : No CRUZ Use of Ambulatory Aid : Crutches/Cane/Walker CRUZ IV Therapy or IV Access : Yes Cruz Gait/Transferring : Weak Cruz Mental Status : Oriented to own ability Cruz Fall Risk Score : 45 CRUZ Fall Scale Risk Level : 25-45 Medium Risk [place] Fall Interventions : Adequate lighting, Bed in low position, Call device within reach, Room free of clutter/spills, Upper side-rails up, Wheels locked Hiwot Canchola RN - 11/14/2020 6:54 EST Fall Risk Education Grid Call light use : Verbalizes understanding Nonskid Footwear Use : Verbalizes understanding Prevention Responsibility Patient : Verbalizes understanding Hiwot Canchola RN - 11/14/2020 6:54 EST Barriers to Learning : None evident Individuals Taught : Patient Readiness to Learn : Cooperative Teaching Method : Explanation Learning Style Preferences Family : None Learning Style Preferences Patient : None Hiwot Canchola RN - 11/14/2020 6:54 EST Education Topics, Day of Surgery DayofSurgery Education Grid Fall Risks : Verbalizes understanding Family Instructions : Verbalizes understanding Infection Control : Verbalizes understanding Infection Risks : Verbalizes understanding IV's : Verbalizes understanding Medication Instructions : Verbalizes understanding Pain Management : Verbalizes understanding Plan of Care : Verbalizes understanding Hiwot Canchola RN - 11/14/2020 6:54 EST Valuables and Belongings Valuables and Belongings [...] to locker, Declines to send to security/safe Hiwot Canchola RN - 11/14/2020 6:54 EST Pain Scale Intensity : 0 Hiwot Canchola RN - 11/14/2020 6:54 EST Image 4 - Images currently included in the form version of this document have not been included in the text rendition version of the form. Marie Coma Marie Best Motor Response : Obey commands Muddy Best Verbal Response : Oriented Muddy Eye Opening Response : Spontaneous Marie Coma Score : 15 Hiwot Canchola RN - 11/14/2020 6:54 EST documented in this encounter Plan of Treatment Upcoming Encounters Date Type Department Care Team (Late st Contact Info) Description 03/26/2026 1:30 PM EDT [facility] [address] [place] [address] Hammad Jack MD [address] [place] [address] documented as of this encounter Visit Diagnoses Not on filedocumented in this encounter Care Teams Compensation Coordinator Relationship Specialty Start Date End Date Emir Goddard MD [address] [place] [address] PCP - General General Surgery 12/23/22 04/03/24 Dayanna Bang, GEOLOGY PROFESSOR [address] [id number] PCP - General Nurse Practitioner 04/04/24 documented as of this encounter
--- OUTSIDE RECORDS SUMMARY | 2025-10-14 15:01 | XMS_ITS | Encounter Summary ---
Author Organization [employer] ([place], [place], [place], [place], [place]) Address [address] [place] [address] Care Team Providers Care Service Bar Cashier Name Role Phone Judy Cantu MD Primary Care Provider [phone] Dayanna Bang APRN Primary Care Provider + [phone] Encounter Details Date Type Department Care Team (Late st Contact Info) Description 08/30/2020 Transcribed Document [facility] [place] [facility] [place] [address] ProviderAnuj MD [address] [place] [address] [id number] Social History Tobacco Use Types Packs/Day Years Used Date Smoking Tobacco: Never Assessed Comments Unknown Sex and Gender Information Value Date Recorded Sex Assigned at Female 05/05/2022 8:00 PM CDT Legal Sex Female 8:00 PM CDT Gender Identity Female 05/05/2022 8:00 PM CDT Sexual Orientation Not on file documented as of this encounter Miscellaneous Notes * Cerner Conversion Note - Anuj ProviderMD - 08/30/2020 2:46 PM CDT [facility] IntraOp Summary Primary Physician: JUDY CANTU MD Finalized Date/Time: 08/30/20 14:48:28 Pt. Name: MARC PARRISHMARIA TERESA Oneal.O.B./Sex: 1955 Female Med Rec #: [id number] Physician: JUDY CANTU MD Financial #: [id number] Pt. Type: E Room/Bed: [facility] Admit/Disch: 08/30/20 10:49:00 - Institution: [facility] [place] Endo - Case Attendance Entry 1 Entry 2 Entry 3 Case Attendee JUDY CANTU MD Conner, Elizabeth A, SOLO Rader RN Role Performed Surgeon/Proceduralist, Linting Machine Operator, First Linting Machine Operator, Second First Time In 08/30/20 14:30:00 08/30/20 14:30:00 08/30/20 14:30:00 Time Out 08/30/20 14:50:00 08/30/20 14:50:00 08/30/20 14:50:00 Procedure Esophagogastroduodenosco Esophagogastroduodenosco Esophagogastroduodenosco py, Gastric Biopsy py, Gastric Biopsy py, Gastric Biopsy Other Attendee Superficial Wound Closed By: Last Modified By: Dara Pace Rn Conner, Elizabeth A, Rn Conner, Elizabeth A, Rn 08/30/20 14:48:15 08/30/20 14:48:15 08/30/20 14:48:15 Entry 4 Entry 5 Entry 6 Case Attendee NIGEL MEREDITH, VAMSI OLIVEROS, MIGUEL RESTREPO, DO-ANS SKULL CHOPPER-ANS Role Performed Scrub, First WOOD REPATCHER/Nurse Newswriter Anesthesiologist of Record Time In 08/30/20 14:30:00 08/30/20 14:30:00 08/30/20 14:30:00 Time Out 08/30/20 14:50:00 08/30/20 14:50:00 08/30/20 14:50:00 Procedure Esophagogastroduodenosco Esophagogastroduodenosco Esophagogastroduodenosco py, Gastric Biopsy py, Gastric Biopsy py, Gastric Biopsy Other Attendee Superficial Wound Closed By: Last Modified By: Dara Pace Rn Conner, Elizabeth A, Rn Conner, Elizabeth A, Rn 08/30/20 14:48:15 08/30/20 14:48:15 08/30/20 14:48:15 [facility] Endo - Case Attendance Audit 08/30/20 14:48:15 Rn Appeals: [id number] Modifier: [id number] 1 <+> Time Out 1 <*> Procedure Esophagogastroduodenoscopy, Gastric Biopsy 2 <+> Time Out 2 <*> Procedure Esophagogastroduodenoscopy, Gastric Biopsy 3 <+> Time Out 3 <*> Procedure Esophagogastroduodenoscopy, Gastric Biopsy 4 <+> Time Out 4 <*> Procedure Esophagogastroduodenoscopy, Gastric Biopsy 5 <+> Time Out 5 <*> Procedure Esophagogastroduodenoscopy, Gastric Biopsy 6 <+> Time Out 6 <*> Procedure Esophagogastroduodenoscopy, Gastric Biopsy 08/30/20 14:45:46 Rn Appeals: [id number] Modifier: [id number] 1 <*> Procedure Esophagogastroduodenoscopy 2 <*> Procedure Esophagogastroduodenoscopy 3 <*> Procedure Esophagogastroduodenoscopy 4 <*> Procedure Esophagogastroduodenoscopy 5 <*> Procedure Esophagogastroduodenoscopy 6 <*> Procedure Esophagogastroduodenoscopy 08/30/20 14:35:27 Rn Appeals: [id number] Modifier: [id number] <+> 1 Procedure 2 <+> Time In 2 <*> Procedure Esophagogastroduodenoscopy 3 <+> Time In 3 <*> Procedure Esophagogastroduodenoscopy 4 <+> Time In 4 <*> Procedure Esophagogastroduodenoscopy 5 <+> Time In 5 <*> Procedure Esophagogastroduodenoscopy 6 <+> Time In 6 <*> Procedure Esophagogastroduodenoscopy [facility] - Case Times Entry 1 Patient In Room Time 08/30/20 14:30:00 Out Room Time 08/30/20 14:50:00 Anesthesia Start Time 08/30/20 14:30:00 Stop Time 08/30/20 14:50:00 Anesthesia Ready 08/30/20 14:30:00 Surgery / Procedure Times Start Time 08/30/20 14:46:00 Stop Time 08/30/20 14:47:00 Last Modified By: Dara Pace Rn 08/30/20 14:47:50 [facility] - Case Times Audit 08/30/20 14:47:50 Rn Appeals: [id number] Modifier: [id number] <+> 1 Out Room Time <+> 1 Stop Time <+> 1 Stop Time 08/30/20 14:46:13 Rn Appeals: [id number] Modifier: [id number] 1 <*> Start Time 08/30/20 14:44:00 08/30/20 14:44:18 Rn Appeals: [id number] Modifier: [id number] <+> 1 Start Time <+> 1 Start Time <+> 1 Anesthesia Ready E Endo - Cultures and Spec Summary Entry 1 Cultrures and Specimens Specimen Ordered: Yes Test(s) Routine/Path-Lab Requested/Final Disposition Last Modified By: Dara Pace Rn 08/30/20 14:46:00 E Endo - Delays Entry 1 Delay Reason Other, No Delay Duration 0 Minute(s) Comment NO DELAY Last Modified By: Dara Pace Rn 08/30/20 14:32:20 [facility] - Departure from OR Entry 1 Integumentary Assessment Integumentary WDL Assessment WDL Transfer/Handoff Transfer to PACU Phase I Handoff Method Bedside/Face to face Post-op Transport Stretcher/rney Via Patient Transport Dara Pace, Accompanied by Rn, VAMSI ALEMAN, SKULL CHOPPER-ANS Last Modified By: Dara Pace Rn 08/30/20 14:32:28 E Endo - Endoscopy Details Entry 1 Abdomen Procedure Soft, Non-Tender Assessment Procedure Abdomen 08/30/20 14:32:00 Assessment D/T Radio Frequency Ablation Abdominal Pressure Last Modified By: Dara Pace Rn 08/30/20 14:32:35 [facility] [place] Endo - Fire Risk Assessment Entry 1 Fire Info Surgical Site or 1- Yes Incision Above the Xyphoid Open O2 Source 1- Yes (Mask or Cannula) Available Ignition 1- Yes (ESU, Laser, Light Source) Fire Risk 3 Assessment Score Fire Score Fire Risk Yes Assessment Complete Fire Risk Dara Pace Rn Assessment Verified By Fire Risk 08/30/20 14:32:00 Assessment Verified Date/Time Fire Risk High Risk Protocol Yes Implemented Standard Fire Yes Safety Precautions Followed Last Modified By: Dara Pace Rn 08/30/20 14:32:43 E Endo - General Case Pivot Maker 1 Case Information OR Endo 01 [facility] Case Level 1 Room Verified Yes Wound Class II - Clean-Contaminated Specialty SN General Anesthesia Type MAC ASA Class 3 Diagnosis Preop Diagnosis gerd without esophagitis Postop Same As Preop No Postop Diagnosis gastritis, Hiatal Hernia , submucosal lesion Last Modified By: Dara Pace Rn 08/30/20 14:47:41 [facility] - General Case Data Audit 08/30/20 14:47:41 Rn Appeals: [id number] Modifier: [id number] 1 <*> Postop Diagnosis gastritis 08/30/20 14:46:43 Rn Appeals: [id number] Modifier: [id number] <+> 1 Postop Diagnosis [facility] - Intraoperative Assessment Entry 1 Valid History / Yes Physical in Chart Preoperative Yes Checklist Reviewed/Evaluated Patient is Latex No Sensitive Level of WDL Consciousness (WDL = Alert, Oriented to Person, Place, and Time) Present Upon ECG monitored Arrival to OR Last Modified By: Dara Pace Rn 08/30/20 14:33:11 [facility] - Intraoperative Equipment Entry 1 Type Scope Equipment Intraop Monitoring Electrocardiogram Three lead placement (ECG) Electrode Placement Blood Pressure Arm, left upper Location Pulse Oximeter Hand, right Probe Site Antiembolic Devices Scopes Flexible Endoscopes Gastroscope Used Scope Serial 2430 Number/Identificatio n Number Photo/Video Documentation Photo Yes Video No Last Modified By: Dara Pace Rn 08/30/20 14:34:09 [facility] - Patient Positioning Entry 1 Procedure Esophagogastroduodenosco py, Gastric Biopsy Body Position Lateral, right side up Left Arm Position Resting at side Right Arm Position Resting at side Left Leg Position Other Right Leg Position Other Position Comments Right leg over left leg uncrossed Feet Uncrossed Yes Pressure Points Yes Checked Positioned By Dara Pace Rn, VAMSI ALEMAN, SKULL CHOPPER-ANS Position Verified Positioning Yes Verified by Anesthesia Positioning Yes Verified by Surgeon Last Modified By: Dara Pace Rn 08/30/20 14:45:47 [facility] - Patient Positioning Audit 08/30/20 14:45:47 Rn Appeals: [id number] Modifier: [id number] 1 <*> Procedure Esophagogastroduodenoscopy [facility] - Sign In Entry 1 Patient, Site, Yes Procedure Identified Surgical Consent Yes Confirmed Relevant Surgical Yes Documents Available Surgical Site N/A Marked by person performing procedure Anesthesia Machine Yes Check Completed Medication Checks Yes Completed Airway Blood Loss Risk No Blood Loss No Intervention Equipment Prepared and Ready Blood Identifiers Not applicable Verified Per Policy Hypothermia Risk No Warming Measures Yes Taken Last Modified By: Dara Pace Rn 08/30/20 14:34:31 [facility] - Sign Out Entry 1 RN Confirmation Surgical Yes Procedure(s) Identified Instrument, Sponge N/A and Sharps Counts Correct/Documented Equipment Problems N/A Documented Specimen Labeled Yes Correctly Urinary Catheter N/A Documented in IView Safety Checklist Yes Elements Complete? RN Sign Out Dara Pace Rn Signature RN Sign Out 08/30/20 14:50:00 Signature Date/Time Plan of Care Outcome - Fire Risk OUTCOME STATEMENT: Goal met Patient is free from injury related to surgical fire Plan of Care Outcome - Pt Positioning OUTCOME STATEMENT: Goal met Absence of signs and symptoms of positioning injury. Plan of Care Outcome - Skin Prep OUTCOME STATEMENT: Goal met Intraoperative care is consistent with measures to prevent infection Plan of Care Outcome - Xray/Images OUTCOME STATEMENT: N/A Absence of observable signs or symptoms of radiation injury Plan of Care Outcome - Counts OUTCOME STATEMENT: N/A Absence of signs and symptoms of injury related to extraneous objects Last Modified By: Dara Pace Rn 08/30/20 14:48:09 [facility] - Sign Out Audit 08/30/20 14:48:09 Rn Appeals: [id number] Modifier: [id number] <+> 1 RN Sign Out Signature Date/Time [facility] [place] Endo - Surgical Procedures Entry 1 Entry 2 Procedure Esophagogastroduodenosco Gastric Biopsy py Modifiers Additional Procedure Description Primary Procedure Yes No Primary Surgeon JUDY CANTU MD ZARAK, ALBERTO, MD Start 08/30/20 14:44:00 08/30/20 14:44:00 Stop 08/30/20 14:47:00 08/30/20 14:47:00 Physician States Cecum Reached Anesthesia Type MAC MAC Specialty SN General SN General Wound Class II - Clean-Contaminated II - Clean-Contaminated Last Modified By: Dara Pace Rn Conner, Elizabeth A, Rn 08/30/20 14:48:10 08/30/20 14:48:10 [facility] - Surgical Procedures Audit 08/30/20 14:48:10 Rn Appeals: [id number] Modifier: [id number] <+> 1 Stop <+> 2 Stop 08/30/20 14:45:38 Rn Appeals: [id number] Modifier: [id number] <+> 1 Start <+> 2 Procedure <+> 2 Primary Procedure <+> 2 Primary Surgeon <+> 2 Specialty <+> 2 Start <+> 2 Wound Class <+> 2 Anesthesia Type [facility] - Time Out Entry 1 Procedure to be Esophagogastroduodenosco Performed py, Gastric Biopsy Time Out Time Out Pause Time 08/30/20 14:42:00 All activity Yes suspended (unless life threatening emergency) Team Verbally Correct patient Confirms Information identity, Consent form is present and accurate, Agreement on the procedure to be done, Correct patient position, Relevant images/results properly labeled/appropriately displayed, Reconcile problems if responses among team members differ Antibiotic N/A Prophylaxis Administered Or In Progress Within the Last 60 Minutes Beta Lei N/A Administered Venous N/A Thromboembolism Prophylaxis Required Anticipated Critical Events Surgeon None expected Anesthesia Provider None expected Last Modified By: Dara Pace Rn 08/30/20 14:45:48 [facility] - Time Out Audit 08/30/20 14:45:48 Rn Appeals: [id number] Modifier: [id number] 1 <*> Procedure to be Performed Esophagogastroduodenoscopy Case Comments <None> Finalized By: Dara Pace Rn Document Signatures Signed By: Dara Pace Rn 08/30/20 14:48 Electronically signed by Rei [place] Conversion Adjunct Communications Faculty Member Cerner at 2023 6:51 PM CDT documented in this encounter Plan of Treatment Upcoming Encounters Date Type Department Care Team (Late st Contact Info) Description 03/26/2026 1:30 PM EDT Office Visit [facility] [address] [facility] [address] [place] [address] Hammad Jack MD [address] [place] [address] documented as of this encounter Visit Diagnoses Not on filedocumented in this encounter Care Teams Service Bar Cashier Relationship Specialty Start Date End Date Judy Cantu MD [address] [facility] [address] [place] [address] PCP - General General Surgery 12/23/22 04/03/24 Dayanna Bang APRN [address] [address] PCP - General Nurse Practitioner 04/04/24 documented as of this encounter
--- OUTSIDE RECORDS SUMMARY | 2025-10-14 15:01 | XMS_ITS | Encounter Summary ---
Author Organization [employer] ([place], [place], [place], [place], [place]) Address [address] [place] [address] Care Team Providers Care Blemish Remover Name Role Phone Judy Cantu MD Primary Care Provider [phone] Dayanna Bang APRN Primary Care Provider + [phone] Encounter Details Date Type Department Care Team (Late st Contact Info) Description 11/14/2020 Transcribed Document [facility] Family Medicine [facility] [address] ProviderAnuj MD [address] [place] [address] Social History Tobacco Use Types Packs/Day [...] Conversion Note - Anuj ProviderMD - 11/14/2020 7:49 AM LAND SALES AGENT SJE Main OR IntraOp Summary Primary Physician: JUDY CANTU MD Finalized Date/Time: 11/14/20 09:08:48 Pt. Name: PARRISH CEDENO.O.B./Sex: 1955 Female Med Rec #: [id number] Physician: JUDY CANTU MD Financial #: [id number] Pt. Type: I Room/Bed: [facility]/3 Admit/Disch: 11/14/20 03:46:00 - [place] [facility] [place] Case Attendance Entry 1 Entry 2 Entry 3 Case Attendee JUDY CANTU MD MATHIS, RACHEL, MD MCDONALD, PHILLIP MORALEZ, ENDOSCOPY TECHNICAN Role Performed Surgeon/Proceduralist, Surgeon/Proceduralist, ENDOSCOPY TECHNICAN/Nurse Dog License Officer Supervisor First Second Time In 11/14/20 07:32:00 11/14/20 07:32:00 11/14/20 07:32:00 Time Out 11/14/20 08:47:00 11/14/20 08:47:00 11/14/20 08:47:00 Procedure Gastrectomy Sleeve Gastrectomy Sleeve Gastrectomy Sleeve Laparoscopic Laparoscopic Laparoscopic Other Attendee Superficial Wound Closed By: Last Modified By: GABI KENT, GABI DAVISON, GABI DAVISON, MOISES 11/14/20 08:47:39 11/14/20 08:47:39 11/14/20 08:47:39 Entry 4 Entry 5 Entry 6 Case Attendee GABI KENT, Jessica Mcallister Doneghy, Francisco, ST Record Cutter Role Performed Contact Lens Blocker, First Scrub, First Scrub, Second Time In 11/14/20 07:32:00 11/14/20 07:32:00 11/14/20 07:32:00 Time Out 11/14/20 08:47:00 11/14/20 08:47:00 11/14/20 08:47:00 Procedure Gastrectomy Sleeve Gastrectomy Sleeve Gastrectomy Sleeve Laparoscopic Laparoscopic Laparoscopic Other Attendee Superficial Wound Closed By: Last Modified By: GABI KENT RN WESSEL, JULIANA, GABI DAVISON RN 11/14/20 08:47:39 11/14/20 08:47:39 11/14/20 08:47:39 Entry 7 Case Attendee Patricio Merida REP - IRASEMA Role Performed Patternmaker Pressure Cast, Ancillary Time In 11/14/20 07:32:00 Time Out 11/14/20 08:47:00 Procedure Gastrectomy Sleeve Laparoscopic Other Attendee Superficial Wound Closed By: Last Modified By: GABI KENT RN 11/14/20 08:47:39 [facility] IntraOp Case Attendance Audit 11/14/20 08:47:39 Laborer Powerhouse: LAURA Modifier: [email or web address] 1 <+> Time Out 1 <*> Procedure Gastrectomy Sleeve Laparoscopic 2 <+> Time In 2 <+> Time Out 2 <*> Procedure Gastrectomy Sleeve Laparoscopic 3 <+> Time In 3 <+> Time Out 3 <*> Procedure Gastrectomy Sleeve Laparoscopic 4 <+> Time In 4 <+> Time Out 4 <*> Procedure Gastrectomy Sleeve Laparoscopic 5 <+> Time In 5 <+> Time Out 5 <*> Procedure Gastrectomy Sleeve Laparoscopic 6 <+> Time In 6 <+> Time Out 6 <*> Procedure Gastrectomy Sleeve Laparoscopic 7 <+> Time In 7 <+> Time Out 7 <*> Procedure Gastrectomy Sleeve Laparoscopic [facility] IntraOp Case Times Entry 1 Patient In Room Time 11/14/20 07:32:00 Out Room Time 11/14/20 08:47:00 Anesthesia Start Time 11/14/20 07:32:00 Stop Time 11/14/20 08:47:00 Anesthesia Ready 11/14/20 07:32:00 Surgery / Procedure Times Start Time 11/14/20 07:49:00 Stop Time 11/14/20 08:39:00 Last Modified By: GABI KENT RN 11/14/20 08:47:38 S[facility] IntraOp Case Times Audit 11/14/20 08:47:38 Laborer Powerhouse: [email or web address] Modifier: [email or web address] <+> 1 Out Room Time <+> 1 Stop Time 11/14/20 08:39:23 Laborer Powerhouse: [email or web address] Modifier: [email or web address] <+> 1 Stop Time 11/14/20 07:55:11 Laborer Powerhouse: [email or web address] Modifier: [email or web address] <+> 1 Start Time SJE IntraOp Cautery Entry 1 ESU Identification Cautery Type Monopolar ESU ID Number [id number] ID Type Hospital Number Cautery Settings Cut Setting 1 Coag Setting 30 ESU Grounding Pad Ground Pad Type Adult Grounding Pad Site Left thigh Grounding Pad GABI KENT RN Applied By Grounding Pad Site Warm, dry and intact Skin Condition Before Cautery Grounding Pad Site Unchanged Skin Condition After Cautery Last Modified By: GABI KENT RN 11/14/20 07:56:23 S[facility] IntraOp Communication Entry 1 Communication To Family/Significant other Comment start Communication By GABI KENT RN Date and Time 11/14/20 07:50:00 Last Modified By: GABI KENT RN 11/14/20 07:56:36 S[facility] IntraOp Counts Verification Entry 1 Procedure Gastrectomy Sleeve Laparoscopic Count Info Count Type Sponge, Sharps, Instrument, Miscellaneous Counts Verification Baseline/pre-procedure Sequence Count Results Correct, surgeon notified Counts Performed By Count Performed By Jessica Gates, (Scrub) Record Cutter Count Performed By GABI KENT RN (RN) Last Modified By: GABI KENT RN 11/14/20 07:56:50 SJE IntraOp Counts Final Entry 1 Procedure Gastrectomy Sleeve Laparoscopic Final Count Info Count Type Sponge, Sharps, Miscellaneous Counts Verification Skin Closure/end of Sequence procedure Count Results Correct, surgeon notified Counts Performed By Count Performed By Jessica Gates (Scrub) Record Cutter Count Performed By GABI KENT RN (RN) Last Modified By: GABI KENT RN 11/14/20 08:37:56 SJE IntraOp Counts Final Audit 11/14/20 08:37:56 Laborer Powerhouse: LAURA Modifier: LAURA 1 <*> Procedure Gastrectomy Sleeve Laparoscopic 1 <+> Counts Verification Sequence [facility] IntraOp Cultures and Spec Summary Entry 1 Cultrures and Specimens Specimen Ordered: Yes Test(s) Routine/Path-Lab Requested/Final Disposition Last Modified By: GABI KENT RN 11/14/20 07:57:06 SJE IntraOp Departure from OR Entry 1 Integumentary Assessment Transfer/Handoff Transfer to PACU Phase I Handoff Method Bedside/Face to face Post-op Transport Bed (including Via specialty) Patient Transport GABI KENT RN, Accompanied by PHILLIP GRAHAM CRNA Last Modified By: GABI KENT RN 11/14/20 07:57:10 SJE IntraOp Dressing and Packing Entry 1 Type Dressing Location abdomen Wound Dressing Item 2x2's Applied By Jessica Gates, Record Cutter Other Comments 2 X 2 COVADERMS APPLIED TO TROCAR SITES Last Modified By: GABI KENT RN 11/14/20 07:57:15 SJE IntraOp Fire Risk Assessment Entry 1 Fire Info Surgical Site or 0- No Incision Above the Xyphoid Open O2 Source 0- No (Mask or Cannula) Available Ignition 1- Yes (ESU, Laser, Light Source) Fire Risk 1 Assessment Score Fire Score Fire Risk Yes Assessment Complete Fire Risk GABI KENT RN Assessment Verified By Fire Risk 11/14/20 07:30:00 Assessment Verified Date/Time Fire Risk Standard Fire Yes Safety Precautions Followed Last Modified By: GABI KENT RN 11/14/20 07:57:28 SJE IntraOp General Case Truck Jumper 1 Case Information OR OR 03 SJE Case Level 1 Room Verified Yes Wound Class II - Clean-Contaminated Specialty SN General Anesthesia Type General ASA Class 3 Diagnosis Preop Diagnosis MORBID OBESITY Postop Same As Preop Yes Postop Diagnosis MORBID OBESITY Last Modified By: GABI KENT RN 11/14/20 07:57:50 SJE IntraOp Implant Log Entry 1 Entry 2 Type Implant (Synthetic) Implant (Synthetic) Implant Log Implant Type Other Other Tissue Implant Type Implant REINFORCE STPL SEAMGRD REINFORCE STPL SEAMGRD Identification FLEX [id number] FLEX [id number] Description Implant Quantity 5 1 Implant Site OPSITE OPSITE Implant Identification Model Number Implant Identification Serial Number Implant [id number] Identification Lot Number Implant [employer]:Med Prdt [employer]Med Prdt Identification Crew Manager Name: Implant [id number] Identification Catalog Number Implant Size Implant Has an Yes Yes Expiration Date Implant Expiration 04/11/23 03/14/23 Date Wasted Radioactive Material Time Implanted Tissue Implant Continue for Tissue Implant Documentation Tissue Identification Number Graft Prep Per Crew Manager Instructions: Tissue Preparation Method: Reconstitution Solution: Reconstitution Solution Lot Number Reconstitution Solution Expiration Date: Thawing Solution Thawing Solution Lot Number Thawing Solution Expiration Date Preparation Materials, Other Preparation Materials, Other Lot Number Preparation Materials, Other Expiration Date Tissue Prepared/Processed By Crew Manager Paperwork Completed Implant Type Comment Last Modified By: GABI KENT RN WESSEL, JULIANA, RN 11/14/20 07:58:22 11/14/20 08:22:12 SJE IntraOp Implant Log Audit 11/14/20 08:22:12 Laborer Powerhouse: LAURA Modifier: LAURA <+> 2 Implant Identification Description <+> 2 Implant Identification Lot Number <+> 2 Implant Identification Crew Manager Name: <+> 2 Implant Expiration Date <+> 2 Implant Site <+> 2 Implant Quantity <+> 2 Implant Identification Catalog Number <+> 2 Implant Type <+> 2 Implant Has an Expiration Date <+> 2 Type S[facility] IntraOp Intraoperative Assessment Entry 1 Handoff Method Bedside/Face to face Valid History / Yes Physical in Chart Preoperative Yes Checklist Reviewed/Evaluated Allergies Reviewed Yes Patient is Latex No Sensitive Isolation Airborne, Not applicable Precautions Noted Level of WDL Consciousness (WDL = Alert, Oriented to Person, Place, and Time) Skin Assessment Yes Verified Present Upon IVs Arrival to OR Last Modified By: GABI KENT RN 11/14/20 07:37:15 SJE IntraOp Intraoperative Equipment Entry 1 Type Equipment Equipment Equipment CO2 Insufflator Intraop Monitoring Antiembolic Devices Antiembolic Devices Sequential compression device, knee high Antiembolic Device Bilateral Location Scopes Photo/Video Documentation Last Modified By: GABI KENT RN 11/14/20 07:58:29 SJE IntraOp Medication Admin Entry 1 Entry 2 Medication/Irrigant Ancef 1Gm powder - Anesthetic [place]-Zarak [id number] Combo Med List Time Administered Route of TOPICAL LOCAL Administration Dose Dose 1 50 Unit of Measure gram ml Volume QS QS Administered By JUDY CANTU MD ZARAK, ALBERTO, MD Procedure Irrigation Irrigant Volume In Irrigant Volume Out Last Modified By: GABI KENT RN WESSEL, JULIANA, RN 11/14/20 07:58:38 11/14/20 07:58:38 SJE IntraOp Patient Positioning Entry 1 Procedure Gastrectomy Sleeve Laparoscopic Body Position Supine Left Arm Position Secured on padded arm board Right Arm Position Secured on padded arm board Left Leg Position Uncrossed, parallel Right Leg Position Uncrossed, parallel Feet Uncrossed Yes Pressure Points Yes Checked Positioning Devices Arm Board, Foot Board, Safety Strap, Thighs, Safety Strap, Arm(s) Positioned By GABI KENT, MOISES, PHILLIP GRAHAM, SOHAIL, JUDY CANTU MD Position Verified Positioning Yes Verified by Anesthesia Positioning Yes Verified by Surgeon Last Modified By: GABI KENT RN 11/14/20 07:58:51 SJE IntraOp Sign In Entry 1 Patient, Site, Yes Procedure Identified Surgical Consent Yes Confirmed Relevant Surgical Yes Documents Available Surgical Site N/A Marked by person performing procedure Anesthesia Machine Yes Check Completed Medication Checks Yes Completed Allergies Yes Airway Difficult Yes Airway/Aspiration Risk Difficult Yes Airway/Aspiration Intervention Equipment Available Blood Loss Risk Yes Blood Loss Yes Intervention Equipment Prepared and Ready Blood Identifiers Not applicable Verified Per Policy Hypothermia Risk Yes Warming Measures Yes Taken Last Modified By: GABI KENT RN 11/14/20 07:58:54 SJE Intra Op Sign Out Entry 1 RN Confirmation Surgical Yes Procedure(s) Identified Instrument, Sponge Yes and Sharps Counts Correct/Documented Equipment Problems N/A Documented Specimen Labeled Yes Correctly Urinary Catheter N/A Documented in IView Ceja Patient Yes Recovery Concerns Reviewed with Anesthesia Provider, Surgeon and RN Ceja Patient Yes Management Concerns Reviewed with Anesthesia Provider, Surgeon and RN Safety Checklist Yes Elements Complete? RN Sign Out GABI KENT RN Signature RN Sign Out 11/14/20 08:47:00 Signature Date/Time Plan of Care Outcome - [...] of Care Outcome - Xray/Images OUTCOME STATEMENT: Goal met Absence of observable signs or symptoms of radiation injury Plan of Care Outcome - Counts OUTCOME STATEMENT: Goal met Absence of signs and symptoms of injury related to extraneous objects Last Modified By: GABI KENT RN 11/14/20 08:47:35 SJE Intra Op Sign Out Audit 11/14/20 08:47:35 Laborer Powerhouse: [email or web address] Modifier: [email or web address] <+> 1 RN Sign Out Signature Date/Time SJE IntraOp Skin Prep Entry 1 Procedure Gastrectomy Sleeve Laparoscopic Prescribed Yes Pre-Surgical Prep Completed Prep Area ABDOMEN Intraop Prep Integumentary WDL Assessment WDL Prep Agents Chloraprep Prep by GABI KENT RN Hair Removal Methods No hair removal performed Last Modified By: GABI KENT RN 11/14/20 07:59:05 SJE IntraOp Surgical Procedures Entry 1 Procedure Gastrectomy Sleeve Laparoscopic Additional LAPAROSCOPIC SLEEVE Procedure GASTRECTOMY Description Primary Procedure Yes Primary Surgeon JUDY CANTU MD Start 11/14/20 07:49:00 Stop 11/14/20 08:39:00 Anesthesia Type General Specialty SN General Wound Class II - Clean-Contaminated Last Modified By: GABI KENT RN 11/14/20 08:39:24 SJE IntraOp Surgical Procedures Audit 11/14/20 08:39:24 Laborer Powerhouse: LAURA Modifier: LAUAR <+> 1 Stop SJE IntraOp Time Out Entry 1 Procedure to be Gastrectomy Sleeve Performed Laparoscopic Time Out Time Out Pause Time 11/14/20 07:48:00 All activity Yes suspended (unless life threatening emergency) Team Verbally Correct patient Confirms Information identity, Correct side and site are marked, Consent form is present and accurate, Agreement on the procedure to be done, Correct patient position, Relevant images/results properly labeled/appropriately displayed, Confirm antibiotics have been administered, Confirm the skin prep has dried, Confirm prosthesis/implant/devic e is present, Performed in location of procedure after prepped/draped, Performed before each procedure if multiple procedures, Reconcile problems if responses among team members differ Antibiotic Yes Prophylaxis Administered Or In Progress Within the Last 60 Minutes Beta Lei Yes Administered Venous Yes Thromboembolism Prophylaxis Required Anticipated Critical Events Surgeon Critical or unexpected steps, Special equipment need, Special instrumentation need Anesthesia Provider Patient specific concerns Nursing Assures Sterility of instruments, Implant Availability Essential Imaging N/A Labeled and Displayed Last Modified By: GABI KENT RN 11/14/20 07:59:53 Case Comments <None> Finalized By: GABI KENT RN Document Signatures Signed By: GABI KENT RN 11/14/20 09:08 Electronically signed by Rei [facility] [address] Mechanical Engineer Cerner at 2023 6:49 PM CDT documented in this encounter Plan of Treatment Upcoming Encounters Date Type Department Care Team (Late st Contact Info) Description 03/26/2026 1:30 PM EDT Office Visit [facility]ric [facility] [address] [place] [address] Hammad Jack MD [address] [facility] [address] [place] [address] documented as of this encounter Visit Diagnoses Not on filedocumented in this encounter Care Teams Blemish Remover Relationship Specialty Start Date End Date Judy Cantu MD [address] [address] PCP - General General Surgery 12/23/22 04/03/24 Dayanna Bang, PARISH [address] [address] PCP - General Nurse Practitioner 04/04/24 documented as of this encounter
--- OUTSIDE RECORDS SUMMARY | 2025-10-14 15:01 | XMS_ITS | Encounter Summary ---
Author Organization [employer] ([place], [place], [place], [place], [place]) Address [address] [place] [address] Care Team Providers Care Shoe Lining Fitter Name Role Phone Emir Cantu MD Primary Care Provider [phone] Dayanna Bang APRN Primary Care Provider [phone] Encounter Details Date Type Department Care Team (Late st Contact Info) Description 11/14/2020 Transcribed Document [facility] [place] Family Medicine [address] [place] [address] ProviderAnuj MD [address] [place] [address] Social History Tobacco Use Types Packs/Day [...] - Anuj ProviderMD - 11/14/2020 7:49 AM JAVA SQL DEVELOPER SJE Main OR PACU Summary Primary Physician: EMIR CANTU MD Finalized Date/Time: 11/14/20 09:46:05 Pt. Name: ROSALIND CEDENOO.B./Sex: 1955 Female Med Rec #: [id number] Physician: EMIR CANTU MD Financial #: [id number] Pt. Type: I Room/Bed: 408/1 Admit/Disch: 11/14/20 03:46:00 - Institution: [facility] [place] Main OR PACU Case Times Entry 1 In PACU I 11/14/20 08:50:00 Ready for PACU 11/14/20 09:43:00 Discharge Discharge from PACU 11/14/20 09:43:00 I Last Modified By: MAGALY FREEMAN 11/14/20 09:43:45 SJE Main OR PACU Case Times Audit 11/14/20 09:43:45 Optical Instrument Assembler: [email or web address] Modifier: [email or web address] <*> Ready for PACU Discharge 11/14/20 09:20:00 1 <+> Discharge from PACU I Finalized By: MAGALY FREEMAN Document Signatures Signed By: MAGALY FREEMAN 11/14/20 09:46 Electronically signed [address] Rei [facility] Conversion Ecommerce Manager Cerner at 2023 6:50 PM CDT documented in this encounter Plan of Treatment Upcoming Encounters Date Type Department Care Team (Late st Contact Info) Description 03/26/2026 1:30 PM EDT Office Visit [facility] Bariatric Services [address] [place] [address] [place] [address] Hammad Jack MD [address] [facility] [address] [place] [address] documented as of this encounter Visit Diagnoses Not on filedocumented in this encounter Care Teams Shoe Lining Fitter Relationship Specialty Start Date End Date Emir Cantu MD [address] [facility] [address] [place] [address] PCP - General General Surgery 12/23/22 04/03/24 Dayanna Bang, PARISH [address] [address] PCP - General Nurse Practitioner 04/04/24 documented as of this encounter
--- OUTSIDE RECORDS SUMMARY | 2025-10-14 15:01 | XMS_ITS | Encounter Summary ---
Author Organization [employer] ([place], [place], [place], [place], [place]) Address [address] [place] [address] Care Team Providers Care Drug Purchaser Name Role Phone Emir Goddard MD Primary Care Provider [phone] Dayanna Bang APRN Primary Care Provider + [phone] Encounter Details Date Type Department Care Team (Late st Contact Info) Description 11/14/2020 Transcribed Document [facility] [place] Family Medicine [facility] [place] [address] ProviderAnuj MD [address] [place] [address] Social History Tobacco Use Types Packs/Day [...] Conversion Note - Anuj ProviderMD - 11/14/2020 10:28 AM ENERGY CONSERVATION TECHNICIAN Patient: ROSALIND CEDENO Age: 65 years Sex: Female : 1955 Associated Diagnoses: None Author: Satnam Love, Pharmacist Pharmacy verified patient's allergies and home medication list with the patient and pharmacy records and are as follows: Home Medications (17) Active allopurinol 300 mg oral tablet 300 mg = 1 Tab, Oral, Daily CoQ10 100 mg, Oral, Daily Cranberry oral tablet 1 Tab, Oral, Daily hydroCHLOROthiazide 50 mg, Oral, Daily metoprolol succinate 50 mg, Oral, At Bedtime Mobic 15 mg, Oral, Daily Multi Vitamin+ 1 Tab, Oral, Daily nitrofurantoin macrocrystals 50 mg oral capsule 50 [...] mg = 2 Cap, Oral, At Bedtime Vitamin D3 5,000 Int Units, Oral, Daily Zofran 4 mg oral tablet 4 mg = 1 Tab, PRN, Oral, Q8H Allergies (2) Active Reaction statins Muscle weakness-general sulfa drugs Hives Patient was very familiar with her medications, briefly counseled on post-op meds...all questions answered. Thanks, Luis Love, Pharm.D. Electronically signed by Rei [facility] Conversion Dulite Machine Bluer Cerner at 2023 6:41 PM CDT documented in this encounter Plan of Treatment Upcoming Encounters Date Type Department Care Team (Late st Contact Info) Description 03/26/2026 1:30 PM EDT Office Visit [facility] Bariatric Services 160 [facility] [address] [place] [address] Hammad Jack MD [address] [place] [address] [facility] [address] [place] [address] documented as of this encounter Visit Diagnoses Not on filedocumented in this encounter Care Teams Drug Purchaser Relationship Specialty Start Date End Date Emir Goddard MD [facility] [address] [place] [address] PCP - General General Surgery 12/23/22 04/03/24 Dayanna Bang, [employer] [address] [address] PCP - General Nurse Practitioner 04/04/24 documented as of this encounter
--- OUTSIDE RECORDS SUMMARY | 2025-10-14 15:01 | XMS_ITS | Encounter Summary ---
Author Organization [employer] ([place], [place], [place], [place], [place]) Address [address] [place] [address] Care Team Providers Care Senior Lead Project Manager Name Role Phone Emir Goddard MD Primary Care Provider [phone] Dayanna Bang APRN Primary Care Provider [phone] Encounter Details Date Type Department Care Team (Late st Contact Info) Description 11/15/2020 Transcribed Document [facility] [place] [place] [facility] [place] [address] ProviderAnuj MD [address] [place] [address] Social History Tobacco Use Types Packs/Day [...] Conversion Note - Anuj ProviderMD - 11/15/2020 7:27 AM ASSOCIATE MUSIC PROFESSOR Patient: ROSALIND CEDENO Age: 65 Years Sex: Female : 1955 Bariatric Surgery Progress Note Subjective Patient feeling well, with mild wound pain Tolerating bariatric stage 1 diet. No nausea/vomiting. Ambulating Objective 11/15/2020 06:03 Systolic Blood Pressure 131 11/15/2020 06:03 Diastolic Blood Pressure 69 11/15/2020 06:03 Heart Rate Monitored 59 11/15/2020 06:00 Heart Rate, Apical Not Done: Not Appropriate at t 11/15/2020 06:03 Respiratory Rate 18 11/15/2020 06:03 Temperature, Fahrenheit 97.8 11/15/2020 06:03 Oxygen Saturation 94 NAD Lungs CTA BL Heart RRR Abd Soft, ND, appropriate wound TTP. Dressings clean/dry Neuro AAOx3 Labs NOV 15 03:32 138 107 H 29 / H 107 4.8 23 H 1.12 \ NOV 15 03:32 \ 13.1 / H 14.4 251 / 40.4 \ Assessment and Plan 65 yo patient POD 1 s/p Laparoscopic Sleeve Doing well and ready for discharge today if continue to tolerate fluids. Follow as out patient in the Bariatric clinic. documented in this encounter Plan of Treatment Upcoming Encounters Date Type Department Care Team (Late st Contact Info) Description 03/26/2026 1:30 PM EDT Office Visit [facility] Bariatric Services [address] [facility] [place] [address] [place] [address] Hammad Jack MD [address] [facility] [address] [place] [address] documented as of this encounter Visit Diagnoses Not on filedocumented in this encounter Care Teams Senior Lead Project Manager Relationship Specialty Start Date End Date Emir Goddard MD [address] [facility] [address] [place], [place] [id number] PCP - General General Surgery 12/23/22 04/03/24 Dayanna Bang APRN [address] [place] [address] PCP - General Nurse Practitioner 04/04/24 documented as of this encounter
--- OUTSIDE RECORDS SUMMARY | 2025-10-14 15:01 | XMS_ITS | Encounter Summary ---
Author Organization [employer] ([place], [place], [place], [place], [place]) Address [address] [place] [address] Care Team Providers Care Press Manager Name Role Phone Emir Goddard MD Primary Care Provider [phone] Dayanna Bang APRN Primary Care Provider [phone] Encounter Details Date Type Department Care Team (Late st Contact Info) Description 11/14/2020 Transcribed Document [facility] Family Medicine [facility] [place] [address] ProviderAnuj MD [address] [place] [address] Social History Tobacco Use Types Packs/Day [...] Conversion Note - Historical ProviderMD - 11/14/2020 7:38 AM QA TESTER Event Note Entered On: 11/14/2020 7:39 EST Performed On: 11/14/2020 7:38 EST by Hiwot Canchola RN Event Note Event Date/Time : 11/14/2020 7:38 EST Description of Event : 0738: Updated family via phone call. Hiwot Canchola RN - 11/14/2020 7:38 EST documented in this encounter Plan of Treatment Upcoming Encounters Date Type Department Care Team (Late st Contact Info) Description 03/26/2026 1:30 PM EDT Office Visit [facility] Bariatric Services [address] [place] [address] Hammad Jack MD [address] [facility] [address] [place] [address] documented as of this encounter Visit Diagnoses Not on filedocumented in this encounter Care Teams Press Manager Relationship Specialty Start Date End Date Emir Goddard MD [address] [place] [address] PCP - General General Surgery 12/23/22 04/03/24 Dayanna Bang, MANUAL MACHINIST [address] [address] PCP - General Nurse Practitioner 04/04/24 documented as of this encounter
--- OUTSIDE RECORDS SUMMARY | 2025-10-14 15:01 | XMS_ITS | Encounter Summary ---
Author Organization [employer] ([place], [place], [place], [place], [place]) Address [address] [place] [address] Care Team Providers Care Golf Club Head Inspector And Adjuster Name Role Phone Emir Goddard MD Primary Care Provider [phone] Dayanna Bang APRN Primary Care Provider [phone] Encounter Details Date Type Department Care Team (Late st Contact Info) Description 08/30/2020 Transcribed Document [facility] Family [place] [address] ProviderAnuj MD [address] [place], [place] [id number] Social History Tobacco Use Types Packs/Day Years [...] Conversion Note - Anuj ProviderMD - 08/30/2020 11:21 AM CDT Pre Procedure Adult Entered On: 08/30/2020 11:27 EDT Performed On: 08/30/2020 11:21 EDT by Meg Gomes Rn Height and Weight, Clinical Dosing Height Source : Stated Height Entry Format : [place] Height, Feet : 5 ft(Converted to: 152 cm, 60 Inch) Height, Inches : 6 Inch(Converted to: 0 ft 6 Inch, 15.24 cm) Clinical Height : 167.64 cm Weight Source : Standing scale Weight Entry Format : [place] Clinical [place] Weight : 170.45 kg Weight, Pounds : 375 lb Body Surface Area (BSA) : 2.61 m2 Body Mass Index : 60.7 kg/m2 (>HHI) [place] Body Weight : 59 kg Meg Gomes Rn - 08/30/2020 11:21 EDT Health Histories Smoking Status : Never (less than 100 in lifetime; none in last 30 days) Smokeless Tobacco Status : Never Meg Gomes Rn - 08/30/2020 11:21 EDT Social History (As Of: 08/30/2020 11:27:01 EDT) Tobacco: Smoking Status Never smoker. (Last Updated: 11/30/2016 15:18:41 EST by Rosalind Cruz RN) Alcohol: Alcohol Use History No. (Last Updated: 11/30/2016 15:18:45 EST by Rosalind Cruz RN) Substance Abuse: Drug Use Hx: No. (Last Updated: 11/30/2016 15:18:49 EST by Rosalind Cruz RN) Infectious Disease History Has the patient ever been tested for COVID-19? : Yes, Patient stated results Negative Date of COVID-19 test known? : Yes Does patient have symptoms of COVID-19? : No COVID19 Screening : No Experiencing Infectious Disease Symptoms : No symptoms Physical contact outside [place] in the last 30 days : No Infectious Disease History : Chicken pox/Shingles, Measles Tuberculosis Symptoms : None Meg Gomes Rn - 08/30/2020 11:21 EDT COVID19 PreProcedure Screening Is this an Emergent or Add on Procedure? : No Has patient been isolated since the test : No Exposed to COVID19 symptoms since test? : No Meg Gomes Rn - 08/30/2020 11:21 EDT Anesthesia/Transfusion History Family History of Anesthesia Reaction : No prior transfusion(s) Transfusion History : Prior anesthesia without reaction Family History of Anesthesia Reaction : None Meg Gomes Rn - 08/30/2020 11:21 EDT Functional Assessment Living Situation : Home Current Home Treatments : Other: Meg Francois Rn - 08/30/2020 11:21 EDT [place] Suicide Severity Rating Scale (C-SSRS) CSSRS Past Month Wish to be : No CSSRS Past Month Suicidal Thoughts : No CSSRS Lifetime Suicide Behavior : No Suicide Severity Rating Score : 0 Suicide Severity Rating : No Additional Care Required at this time Meg Gomes Rn - 08/30/2020 11:21 EDT Psychosocial History Do You Have a History of the Following? : Depression Currently in Unsafe Situation : No Meg Gomes Rn - 08/30/2020 11:21 EDT Advance Directive Patient has Advance Directive *Q : Yes, Advance Directive not with the patient Advance Directive Type : Living will Copy Advance Directive Verified/on Chart : No Meg Gomes Rn - 08/30/2020 11:21 EDT General Info Preferred Name : Rosalind Want Family/Rep/Phys Notified of Admit : No Emergency Contact #1 : Mallory Grace Emergency Contact #1 Emergency Contact #1 Relationship : daughter Emergency Contact #2 : . Emergency Contact #2 Phone Number : . Emergency Contact #2 Relationship : . Primary Language : [place] Preferred Communication Mode : Verbal Communication Barrier : None Underwriting Manager Needed : No Meg Gomes Rn - 08/30/2020 11:21 EDT Sleep Apnea Risk Assmt Hx of Obstructive [...] Sleep Apnea Risk Level Score : 4 Meg Gomes Rn - 08/30/2020 11:21 EDT Dimitris Scale Dimitris Sensory Perception : No impairment Dimitris Moisture : Occasionally moist Dimitris Activity : Walks occasionally Dimitris Mobility : Slightly limited Dimitris Nutrition : Adequate Dimitris Friction and Shear : No apparent problem Dimitris Score : 19 Meg Gomes Rn - 08/30/2020 11:21 EDT Fall Risk Scales ABCs Fall Injury Risk [...] Scale Risk Level : 25-45 Medium Risk [place] Fall Interventions : Adequate lighting, Bed in low position, Call device within reach, Non-slip footwear, Wheels locked Meg Gomes, Rn - 08/30/2020 11:21 EDT Valuables and Belongings Valuables and Belongings : Clothing Clothing : Common streetwear Clothing Disposition : Bedside Meg Gomes Rn - 08/30/2020 11:21 EDT Electronically signed by [facility], [facility] Conversion Automation Controls Expert Cerner at 2023 6:28 PM CDT documented in this encounter Plan of Treatment Upcoming Encounters Date Type Department Care Team (Late st Contact Info) Description 03/26/2026 1:30 PM EDT Office Visit [facility] Bariatric Services [address] [facility] [address] [place] [address] Hammad Jack MD [address] [place] [id number] documented as of this encounter Visit Diagnoses Not on filedocumented in this encounter Care Teams Golf Club Head Inspector And Adjuster Relationship Specialty Start Date End Date Emir Goddard MD [address] [place] [address] PCP - General General Surgery 12/23/22 04/03/24 Dayanna Bang, [place] [address] [place] [address] PCP - General Nurse Practitioner 04/04/24 documented as of this encounter
--- OUTSIDE RECORDS SUMMARY | 2025-10-14 15:01 | XMS_ITS | Encounter Summary ---
Author Organization [employer] ([place], [place], [place], [place], [place]) Address [address] [place] [address] Care Team Providers Care Daily Release And Dupe Printer Name Role Phone Emir Goddard MD Primary Care Provider [phone] Dayanna Bang APRN Primary Care Provider [phone] Encounter Details Date Type Department Care Team (Late st Contact Info) Description 11/15/2020 Transcribed Document [facility] Family Medicine [address] [place] [address] ProviderAnuj MD [address] [place] [address] Social History Tobacco Use Types Packs/Day [...] Conversion Note - Anuj ProviderMD - 11/15/2020 1:10 PM [facility] Nursing Discharge Summary Entered On: 11/15/2020 13:11 EST Performed On: 11/15/2020 13:10 EST by Mei Funez RN Discharge Documentation Discharge Date/Time : 11/15/2020 13:05 EST Transporter Signature : Steff Arciniega, [facility] Patient Disposition, General : Discharge Discharge To : Home with ambulatory/outpatient follow-up Mode Of Departure, General Discharge : Private vehicle, Wheelchair Accompanied By, Discharge : Daughter IV Discontinued : Yes Personal Belongings With Patient : Yes Prescriptions Given to Patient : Electronically sent Discharge Instructions Reviewed With, Opportunity For Questions Given : Patient Patient Education Completed : Yes Teaching Method : Explanation, Printed materials Teaching Evaluation : Verbalizes understanding Mei Funez, MOISES - 11/15/2020 13:10 EST Electronically signed by [facility], [facility] Conversion Motor Coach Chauffeur Cerner at 2023 6:46 PM CDT documented in this encounter Plan of Treatment Upcoming Encounters Date Type Department Care Team (Late st Contact Info) Description 03/26/2026 1:30 PM EDT Office Visit [facility] Bariatric Services [address] [place] [address] Hammad Jack MD [address] [facility] [address] [place] [address] documented as of this encounter Visit Diagnoses Not on filedocumented in this encounter Care Teams Daily Release And Dupe Printer Relationship Specialty Start Date End Date Emir Goddard MD [address] [place] [address] PCP - General General Surgery 12/23/22 04/03/24 Dayanna Bang, [place] [address] [address] PCP - General Nurse Practitioner 04/04/24 documented as of this encounter
--- OUTSIDE RECORDS SUMMARY | 2025-10-14 15:01 | XMS_ITS | Encounter Summary ---
Author Organization [employer] ([place], [place], [place], [place], [place]) Address [address] [place] [address] Care Team Providers Care Die Filer Name Role Phone Judy Cantu MD Primary Care Provider [phone] Dayanna Bang APRN Primary Care Provider [phone] Encounter Details Date Type Department Care Team (Late st Contact Info) Description 11/15/2020 Transcribed Document [facility] [place] [address] ProviderAnuj MD [address] [place] [id number] Social History Tobacco Use Types Packs/Day [...] Conversion Note - Anuj Dueñas MD - 11/15/2020 9:18 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 Discharge Vitals Temperature 36.6 ??C Heart Rate (Monitored) 59 Respiratory Rate 18 Blood Pressure 131/69 What to do next Instructions From Your Care Team Discharge Follow Up Instructions: call office on wednesday for followup appointment Follow Up Instructions: followup next weekCall for [id number] Activity: Discharge Activity: No heavy lifting over 10 lbs Diet: Warm liquids in the morning. May progress to full liquids and soft high protein foods as tolerated (Cottage cheese, chicken salad, eggs, etc). Make sure foods are wet . Drink 64 oz of fluids per day. Refer to [facility]-handbook., Discharge Diet: Other (see Special Instructions) Follow-Up Appointments Follow Up with JUDY CANTU MD When 11/21/2020 09:15 AM EST Where: [address] Medications What How Much When Instructions Next Dose ondansetron (Zofran 4 mg oral tablet) 1 Tablet(s) Oral Every 8 Hours as needed for Nausea Refills: 1 Pickup at [facility] as needed oxyCODONE (oxyCODONE 5 mg oral tablet) 1 Tablet(s) Oral Every 6 Hours as needed for as needed for pain Pickup at [facility] as needed metoprolol (metoprolol succinate) 50 Milligram(s) Oral At Bedtime tonight nitrofurantoin (nitrofurantoin macrocrystals 50 mg oral capsule) 1 Capsule(s) Oral Every Day tomorrow omeprazole (PriLOSEC 20 mg oral delayed release capsule) 1 Capsule(s) Oral Every Day before a meal Pickup at [facility] tomorrow sertraline 25 Milligram(s) Oral Every Day tomorrow verapamil (verapamil 240 mg/ 24 hours oral capsule, extended release) 2 Capsule(s) Oral At Bedtime tonight allopurinol (allopurinol 300 mg oral tablet) 1 Tablet(s) Oral Every Day tomorrow levothyroxine (Synthroid 125 mcg (0.125 mg) oral tablet) 1 Tablet(s) Oral Every Day tomorrow potassium chloride (potassium chloride 20 mEq oral tablet, extended release) 1 Tablet(s) Oral Two Times A Day tonight spironolactone 50 Milligram(s) Oral Every Day tomorrow Pharmacy Information [facility]: [address] [phone] Take your medications faithfully. Do NOT skip [...] Please dispose of unused and medications per your retail pharmacy guidance. Allergies statins (Muscle weakness-general) sulfa drugs (Hives) Immunizations This Visit No Immunizations Found Education Materials Dr. Patricio Clements, Dr. Zoltan Ortega, Dr. Judy Reddy PA-C ??? Office ??? Physician Exchange Discharge Instructions Use your patient handbook! DIET ??? Staying hydrated is your main goal! Be sure to drink at least 64 ounces of fluid/water every day. ??? Remember the importance of hot liquids at least twice a day to reduce mucus build up and nausea. ??? Begin using your protein supplements as soon as you get home. Work up to at least 60-80 grams of protein from your supplements. That???s about 3-4 supplements a day. ??? You may start your soft, high protein diet only when you are drinking 64 oz of fluid and getting close to your 60 grams of protein from your supplements. ??? Stick with only the foods in phase three of your handbook. These foods are soft, moist and high in protein. Aim for about 3 Tbsp or 1.5 oz per meal. Remember no drinking with food or the hour after. ??? Use the fluid and protein log in your patient handbook to track your intake. ACTIVITY ??? No lifting over 20 pounds within two weeks after surgery, or until the doctor recommends it. ??? No water exercise for two weeks. ??? Do not sit or stand for long periods of time. When you do sit, change positions frequently. ??? Do not drive until 1 week after surgery and until you are off all pain medication. ??? You may resume sexual relations when comfortable. ??? Continue to use the spirometer (breathing exercise) that you brought home at least 4 times a day for the first week. ??? Return to work when you feel capable. ??? Begin to walk 30 minutes each day. At first you may need to take two or three 10 to 15 minute walks. Gradually increase the distance you walk as you tolerate. MEDICINES ??? Take your medicines as we discussed at discharge. There may be some changes from what you were on before surgery. Fill prescriptions given at hospital and begin taking the omeprazole (or equivalent) daily. ??? Post???op vitamins will begin after your post-op appointment. ??? Take a dose of Milk of Magnesia each day that you are taking pain medication or until you have normal bowel movement. DIABETES ??? If you are diabetic, check your glucose. Call the office if it is greater than 200 more than 3 times in 24-48 hours. WOUND CARE ??? You will be sent home with bandages [...] to recover your drain site if needed. ??? Please notify [facility] of any drainage, type [...] than you ever had in the hospital. ??? If you have a temperature that is 101 degrees or more. ??? If you have unusual swelling in one or both legs. ??? If you vomit and it looks different from what you just ate / drank. ??? If you have increased redness or drainage from incision sites. ??? If you have any other symptoms that concern you. Use your Patient Handbook! Many topics including nausea, vomiting, diarrhea, constipation, sleeplessness, headaches, and more are covered within this book. If you do not find an answer in your book, please call the Center at [phone]. FAQ ??? Patient COVID-19 testing Why do I need [...] patients who test positive for COVID-19. If I???m a patient, should I wear a mask? [...] follow up with their primary care provider. Public health may reach out to them to complete contact tracing. Will my status as COVID-19 positive be reported? Because COVID-19 is a public health threat, all positive cases are reported through the local health department and the [place] Department for Public Health. Those organizations are [...] need during a recommended self-quarantine period. The patient???s name is not revealed to anyone during the contact tracing interviews, even if a contact asks. Who would be considered a ???close contact?? ? According to the CDC, a close [...] a face covering and maintain social distancing ??? at least 6 feet from others at [...] and need to call 911, notify the scouring train operator that you have, or think you [...] others. You should stay in a specific ???sick room?? if possible, and away from other people [...] (including before you enter a health care provider???s office). ??? If you are caring for [...] clean your hands with an alcohol-based hand guardian family member that contains at least 60% alcohol. Clean your hands often. ??? Wash hands: Wash your hands often with soap and water for at least 20 seconds when visibly dirty. This is especially important after blowing your nose, coughing or sneezing, and going to the bathroom, and before eating or preparing food. ??? Hand guardian family member: Use an alcohol-based hand guardian family member with at least 60% alcohol, covering all [...] and water or put them in the ic designer standard cells. Clean all high-touch surfaces every day. Clean high-touch surfaces in your isolation area (???sick room?? and bathroom) every day; let a caregiver clean and disinfect high-touch surfaces in other areas of the home. ??? Clean and disinfect: Routinely clean high-touch surfaces in your ???sick room?? and bathroom. Let someone else clean and disinfect surfaces in common areas, but not your bedroom and bathroom. ? If a caregiver or other person needs to clean and disinfect a sick person???s bedroom or bathroom, they should do so [...] or body fluids on them. ??? Household admitting coordinator and disinfectants: Clean the area or item with soap and water or another detergent if it is dirty. Then, use a household disinfectant. ??? Be sure to follow the instructions on the label to ensure safe and effective use of the product. Many products recommend keeping the surface wet for several minutes to ensure germs are killed. Many also recommend precautions such as wearing gloves and making sure you have good ventilation during use of the product. ??? Most EPA-registered household disinfectants should be effective. A full list of disinfectants can be found here: https://www.epa.gov/pesticide-registration/pqsq-z-ytpueisjqptmx-hzj-jdhwbkt-tl rs-cov-2 oxycodone (ox i KOE done) Oxaydo, OxyCONTIN, Oxyfast, Roxicodone, Xtampza ER What is the most important information I should know about oxycodone? MISUSE OF OPIOID MEDICINE CAN CAUSE ADDICTION, OVERDOSE, OR . Keep the medication in a place where others cannot get to it. Taking opioid medicine during may cause life-threatening withdrawal symptoms in the . Fatal side effects can occur if you use opioid medicine with alcohol, or with other drugs that cause drowsiness or slow your breathing. What is oxycodone? Oxycodone is an opioid pain medication used to treat moderate to severe pain. The extended-release form of oxycodone is for ufjsfv-jex-wofdf treatment of pain and should not be used on an as-needed basis for pain. Oxycodone may also be used for purposes not listed in this medication guide. What should I discuss with my healthcare provider before using oxycodone? You should not use oxycodone if you are allergic to it, or if you have: ?? severe asthma or breathing problems; or ?? a blockage in your stomach or intestines. You should not use oxycodone unless you are already using a similar opioid medicine and are tolerant to it. Most brands of oxycodone are not approved for use in people under 18. OxyContin should not be given to a child younger than 11 years old. Tell your doctor if you have ever had: ?? breathing problems, sleep apnea; ?? a head injury, or seizures; ?? drug or alcohol addiction, or mental illness; ?? liver or kidney disease; ?? urination problems; or ?? problems with your gallbladder, pancreas, or thyroid. If you use opioid medicine while you are , your baby could become dependent on the drug. This can cause life-threatening withdrawal symptoms in the baby after it is born. Babies born dependent on opioids may need medical treatment for several weeks. Do not breast-feed. Oxycodone can pass into breast milk and may cause drowsiness, breathing problems, or in a nursing baby. How should I use oxycodone? Follow the directions on your prescription label and read all medication guides. Never use oxycodone in larger amounts, or for longer than prescribed. Tell your doctor if you feel an increased urge to take more of this medicine. Never share opioid medicine with another person, especially someone with a history of drug abuse or addiction. MISUSE CAN CAUSE ADDICTION, OVERDOSE, OR . Keep the medication in a place where others cannot get to it. Selling or giving away opioid medicine is against the law. Stop taking all other svobum-pek-sygtj narcotic pain medicines when you start taking extended-release oxycodone. Take oxycodone with food. Swallow the capsule or tablet whole to avoid exposure to a potentially fatal overdose. Do not crush, chew, break, open, or dissolve. Never crush or break an oxycodone pill to inhale the powder or mix it into a liquid to inject the drug into your vein. This can cause in . Measure liquid medicine carefully. Use the dosing syringe provided, or use a medicine dose-measuring device (not a kitchen spoon). You should not stop using oxycodone suddenly. Follow your doctor's instructions about tapering your dose. Store at room temperature, away from heat, moisture, and light. Keep track of your medicine. Oxycodone is a drug of abuse and you should be aware if anyone is using your medicine improperly or without a prescription. Do not keep leftover opioid medication. Just one dose can cause in someone using this medicine accidentally or improperly. Ask your pharmacist where to locate a drug take-back disposal program. If there is no take-back program, flush the unused medicine down the toilet. What happens if I miss a dose? Since oxycodone is used for pain, you are not likely to miss a dose. Skip any missed dose if it is almost time for your next dose. Do not use two doses at one time. What happens if I overdose? Seek emergency medical attention or call the Poison Help line at . An oxycodone overdose can be fatal, especially in a child or other person using the medicine without a prescription. Overdose can cause severe muscle weakness, pinpoint pupils, very slow breathing, extreme drowsiness, or coma. What should I avoid while using oxycodone? Do not drink alcohol. Dangerous side effects or could occur. Avoid driving or operating machinery until you know how oxycodone will affect you. Dizziness or severe drowsiness can cause falls or other accidents. Avoid medication errors. Always check the brand and strength of oxycodone you get from the pharmacy. What are the possible side effects of oxycodone? Get emergency medical help if you have signs of an allergic reaction: hives; difficult breathing; swelling of your face, lips, tongue, or throat. Opioid medicine can slow or stop your breathing, and may occur. A person caring for you should seek emergency medical attention if you have slow breathing with long pauses, blue colored lips, or if you are hard to wake up. Call your doctor at once if you have: ?? noisy breathing, sighing, shallow breathing, breathing that stops during sleep; ?? a slow heart rate or weak pulse; ?? a light-headed feeling, like you might pass out; ?? confusion, unusual thoughts or behavior; ?? seizure (convulsions); or ?? low cortisol levels-- nausea, vomiting, loss of appetite, dizziness, worsening tiredness or weakness. Seek medical attention right away if you have symptoms of serotonin syndrome, such as: agitation, confusion, fever, sweating, fast heart rate, chest pain, feeling short of breath, muscle stiffness, trouble walking, or feeling faint. Serious side effects may be more likely in older adults and those who are malnourished or debilitated. Long-term use of opioid medication may affect fertility (ability to have children) in men or women. It is not known whether opioid effects on fertility are permanent. Common side effects may include: ?? drowsiness, headache, dizziness, tiredness; or ?? constipation, stomach pain, nausea, vomiting. This is not a complete list of side effects and others may occur. Call your doctor for medical advice about side effects. You may report side effects to FDA at 2-129-NYB-1082. What other drugs will affect oxycodone? You may have breathing problems or withdrawal symptoms if you start or stop taking certain other medicines. Tell your doctor if you also use an antibiotic, antifungal medication, heart or blood pressure medication, seizure medication, or medicine to treat HIV or hepatitis C. Opioid medication can interact with many other drugs and cause dangerous side effects or . Be sure your doctor knows if you also use: ?? cold or allergy medicines, bronchodilator asthma/COPD medication, or a diuretic ('water pill'); ?? medicines for motion sickness, irritable bowel syndrome, or overactive bladder; ?? other narcotic medications--opioid pain medicine or prescription cough medicine; ?? a sedative like Valium--diazepam, alprazolam, lorazepam, Xanax, Klonopin, Versed, and others; ?? drugs that make you sleepy or slow your breathing--a sleeping pill, muscle relaxer, medicine to treat mood disorders or mental illness; or ?? drugs that affect serotonin levels in your body--a stimulant, or medicine for depression, Parkinson's disease, migraine headaches, serious infections, or nausea and vomiting. This list is not complete and many other drugs may affect oxycodone. This includes prescription and fsft-uaq-gxencln medicines, vitamins, and herbal products. Not all possible drug interactions are listed here. Where can I get more information? Your pharmacist can provide more information about oxycodone. Remember, keep this and all other medicines out of the reach of children, never share your medicines with others, and use this medication only for the indication prescribed. Every effort has been made to ensure that the information provided by [employer]. [employer]') is accurate, up-to-date, and complete, but no guarantee is made to that effect. Drug information contained herein may be time sensitive. [employer] information has been compiled for use by healthcare practitioners and consumers in the [place] and therefore [employer] does not warrant that uses outside of the [place] are appropriate, unless specifically indicated otherwise. [employer] drug information does not endorse drugs, diagnose patients or recommend therapy. [employer] drug information is an informational resource designed to assist licensed healthcare practitioners in caring for their patients and/or to serve consumers viewing this service as a supplement to, and not a substitute for, the expertise, skill, knowledge and judgment of healthcare practitioners. The absence of a warning for a given drug or drug combination in no way should be construed to indicate that the drug or drug combination is safe, effective or appropriate for any given patient. [employer] does not assume any responsibility for any aspect of healthcare administered with the aid of information [employer] provides. The information contained herein is not intended to cover all possible uses, directions, precautions, warnings, drug interactions, allergic reactions, or adverse effects. If you have questions about the drugs you are taking, check with your doctor, nurse or pharmacist. Copyright 8505-3760 [employer]. Version: 13.03. Revision Date: 08/21/2019. omeprazole (oh MEP ra zol) FIRST Omeprazole, Omeprazole + SyrSpend SF Ilana, PriLOSEC, PriLOSEC OTC What is the most important information I should know about omeprazole? Omeprazole can cause kidney problems. Tell your doctor if you are urinating less than usual, or if you have blood in your urine. Diarrhea may be a sign of a new infection. Call your doctor if you have diarrhea that is watery or has blood in it. Omeprazole may cause new or worsening symptoms of lupus. Tell your doctor if you have joint pain and a skin rash on your cheeks or arms that worsens in sunlight. You may be more likely to have a broken bone while taking this medicine terminal computer operator or more than once per day. What is omeprazole? Omeprazole is a proton pump inhibitor that decreases the amount of acid produced in the stomach. Omeprazole is used to treat symptoms of gastroesophageal reflux disease (GERD) and other conditions caused by excess stomach acid. Omeprazole is also used to promote healing of erosive esophagitis (damage to your esophagus caused by stomach acid). Omeprazole may also be given together with antibiotics to treat gastric ulcer caused by infection with Helicobacter pylori (H. pylori). Hmkl-byl-otcbhkb (OTC) omeprazole is used in adults to help control heartburn that occurs 2 or more days per week. This medicine not for immediate relief of heartburn symptoms. OTC omeprazole must be taken on a regular basis for 14 days in a row. Omeprazole may also be used for purposes not listed in this medication guide. What should I discuss with my healthcare provider before taking omeprazole? Heartburn can mimic early symptoms of a heart attack. Get emergency medical help if you have chest pain that spreads to your jaw or shoulder and you feel sweaty or light-headed. You should not use omeprazole if you are allergic to it, or if: ?? you are also allergic to medicines like omeprazole, such as esomeprazole, lansoprazole, pantoprazole, rabeprazole, Nexium, Prevacid, Protonix, and others; or ?? you also take HIV medication that contains rilpivirine (such as Complera, Edurant, Odefsey, Juluca). Ask a doctor or pharmacist if this medicine is safe to use if you have: ?? trouble or pain with swallowing; ?? bloody or black stools, vomit that looks like blood or coffee grounds; ?? heartburn that has lasted for over 3 months; ?? frequent chest pain, heartburn with wheezing; ?? unexplained weight loss; ?? nausea or vomiting, stomach pain; ?? liver disease; ?? low levels of magnesium in your blood; or ?? osteoporosis or low bone mineral density (osteopenia). You may be more likely to have a broken bone in your hip, wrist, or spine while taking a proton pump inhibitor long-term or more than once per day. Talk with your doctor about ways to keep your bones healthy. Ask a doctor before using this medicine if you are or breast-feeding. Do not give this medicine to a child without medical advice. How should I take omeprazole? Follow all directions on your prescription label and read all medication guides or instruction sheets. Use the medicine exactly as directed. Use Prilosec OTC (loee-xye-rlgtndx) exactly as directed on the label, or as prescribed by your doctor. Read and carefully follow any Instructions for Use provided with your medicine. Ask your doctor or pharmacist if you do not understand these instructions. Shake the oral suspension (liquid) before you measure a dose. Use the dosing syringe provided, or use a medicine dose-measuring device (not a kitchen spoon). If you cannot swallow a capsule whole, open it and sprinkle the medicine into a spoonful of applesauce. Swallow the mixture right away without chewing. Do not save it for later use. You must dissolve omeprazole powder in a small amount of water. This mixture can either be swallowed or given through a nasogastric (NG) feeding tube using a catheter-tipped syringe. Use this medicine for the full prescribed length of time, even if your symptoms quickly improve. OTC omeprazole should be taken for only 14 days in a row. It may take 1 to 4 days before your symptoms improve. Allow at least 4 months to pass before you start a new 14-day course of treatment. Call your doctor if your symptoms do not improve, or if they get worse. Some conditions are treated with a combination of omeprazole and antibiotics. Use all medications as directed. This medicine can affect the results of certain medical tests. Tell any doctor who treats you that you are using omeprazole. Store at room temperature away from moisture and heat. What happens if I miss a dose? Take the medicine as soon as you can, but skip the missed dose if it is almost time for your next dose. Do not take two doses at one time. What happens if I overdose? Seek emergency medical attention or call the Poison Help line at . What should I avoid while taking omeprazole? This medicine can cause diarrhea, which may be a sign of a new infection. If you have diarrhea that is watery or bloody, call your doctor before using anti-diarrhea medicine. What are the possible side effects of omeprazole? Get emergency medical help if you have signs of an allergic reaction: hives; difficulty breathing; swelling of your face, lips, tongue, or throat. Stop using omeprazole and call your doctor at once if you have: ?? severe stomach pain, diarrhea that is watery or bloody; ?? new or unusual pain in your wrist, thigh, hip, or back; ?? seizure (convulsions); ?? kidney problems--little or no urination, blood in your urine, swelling, rapid weight gain; ?? low magnesium--dizziness, irregular heartbeats, feeling jittery, muscle cramps, muscle spasms, cough or choking feeling; or ?? new or worsening symptoms of lupus--joint pain, and a skin rash on your cheeks or arms that worsens in sunlight. Taking omeprazole long-term may cause you to develop stomach growths called fundic gland polyps. Talk with your doctor about this risk. If you use omeprazole for longer than 3 years, you could develop a vitamin B-12 deficiency. Talk to your doctor about how to manage this condition if you develop it. Common side effects may include: ?? stomach pain, gas; ?? nausea, vomiting, diarrhea; or ?? headache. This is not a complete list of side effects and others may occur. Call your doctor for medical advice about side effects. You may report side effects to FDA at 9-910-DFZ-1961. What other drugs will affect omeprazole? Sometimes it is not safe to use certain medications at the same time. Some drugs can affect your blood levels of other drugs you take, which may increase side effects or make the medications less effective. Tell your doctor about all your current medicines. Many drugs can affect omeprazole, especially: ?? clopidogrel; ?? methotrexate; ?? [place]'s wort; or ?? an antibiotic--amoxicillin, clarithromycin, rifampin. This list is not complete and many other drugs may affect omeprazole. This includes prescription and gmhk-tgb-zlbbevg medicines, vitamins, and herbal products. Not all possible drug interactions are listed here. Where can I get more information? Your pharmacist can provide more information about omeprazole. Remember, keep this and all other medicines out of the reach of children, never share your medicines with others, and use this medication only for the indication prescribed. Every effort has been made to ensure that the information provided by [employer]. [employer] is accurate, up-to-date, and complete, but no guarantee is made to that effect. Drug information contained herein may be time sensitive. [employer] information has been compiled for use by healthcare practitioners and consumers in the [place] and therefore [employer] does not warrant that uses outside of the [place] are appropriate, unless specifically indicated otherwise. [employer]'s drug information does not endorse drugs, diagnose patients or recommend therapy. [facility]'s drug information is an informational resource designed to assist licensed healthcare practitioners in caring for their patients and/or to serve consumers viewing this service as a supplement to, and not a substitute for, the expertise, skill, knowledge and judgment of healthcare practitioners. The absence of a warning for a given drug or drug combination in no way should be construed to indicate that the drug or drug combination is safe, effective or appropriate for any given patient. [facility] does not assume any responsibility for any aspect of healthcare administered with the aid of information [facility] provides. The information contained herein is not intended to cover all possible uses, directions, precautions, warnings, drug interactions, allergic reactions, or adverse effects. If you have questions about the drugs you are taking, check with your doctor, nurse or pharmacist. Copyright 1795-5763 [facility]. Version: .. Revision Date: 02/16/2019. ondansetron (oral) (on WILLY se arturo) Hitesh Proctor Zuplenz What is the most important information I should know about ondansetron? You should not use ondansetron if you are also using apomorphine (Apokyn). What is ondansetron? Ondansetron blocks the actions of chemicals in the body that can trigger nausea and vomiting. Ondansetron is used to prevent nausea and vomiting that may be caused by surgery, cancer chemotherapy, or radiation treatment. Ondansetron may be used for purposes not listed in this medication guide. What should I discuss with my health care provider before taking ondansetron? You should not use ondansetron if: ?? you are also using apomorphine (Apokyn); or ?? you are allergic to ondansetron or similar medicines (dolasetron, granisetron, palonosetron). To make sure ondansetron is safe for you, tell your doctor if you have: ?? liver disease; ?? an electrolyte imbalance (such as low levels of potassium or magnesium in your blood); ?? congestive heart failure, slow heartbeats; ?? a personal or family history of long QT syndrome; or ?? a blockage in your digestive tract (stomach or intestines). Ondansetron is not expected to harm an unborn baby. Tell your doctor if you are . It is not known whether ondansetron passes into breast milk or if it could harm a nursing baby. Tell your doctor if you are breast-feeding a baby. Ondansetron is not approved for use by anyone younger than 4 years old. Ondansetron orally disintegrating tablets may contain phenylalanine. Tell your doctor if you have phenylketonuria (PKU). How should I take ondansetron? Follow all directions on your prescription label. Do not take this medicine in larger or smaller amounts or for longer than recommended. Ondansetron can be taken with or without food. The first dose of ondansetron is usually taken before the start of your surgery, chemotherapy, or radiation treatment. Follow your doctor's dosing instructions very carefully. Take the ondansetron regular tablet with a full glass of water. To take the orally disintegrating tablet (Zofran ODT): ?? Keep the tablet in its blister pack until you are ready to take it. Open the package and peel back the foil. Do not push a tablet through the foil or you may damage the tablet. ?? Use dry hands to remove the tablet and place it in your mouth. ?? Do not swallow the tablet whole. Allow it to dissolve in your mouth without chewing. ?? Swallow several times as the tablet dissolves. To use ondansetron oral soluble film (strip) (Zuplenz): ?? Keep the strip in the foil pouch until you are ready to use the medicine. ?? Using dry hands, remove the strip and place it on your tongue. It will begin to dissolve right away. ?? Do not swallow the strip whole. Allow it to dissolve in your mouth without chewing. ?? Swallow several times after the strip dissolves. If desired, you may drink liquid to help swallow the dissolved strip. ?? Wash your hands after using Zuplenz. Measure liquid medicine with the dosing syringe provided, or with a special dose-measuring spoon or medicine cup. If you do not have a dose-measuring device, ask your pharmacist for one. Store at room temperature away from moisture, heat, and light. Store liquid medicine in an upright position. What happens if I miss a dose? Take the missed dose as soon as you remember. Skip the missed dose if it is almost time for your next scheduled dose. Do not take extra medicine to make up the missed dose. What happens if I overdose? Seek emergency medical attention or call the Poison Help line at . Overdose symptoms may include sudden loss of vision, severe constipation, feeling light-headed, or fainting. What should I avoid while taking ondansetron? Ondansetron may impair your thinking or reactions. Be careful if you drive or do anything that requires you to be alert. What are the possible side effects of ondansetron? Get emergency medical help if you have signs of an allergic reaction: rash, hives; fever, chills, difficult breathing; swelling of your face, lips, tongue, or throat. Call your doctor at once if you have: ?? severe constipation, stomach pain, or bloating; ?? headache with chest pain and severe dizziness, fainting, fast or pounding heartbeats; ?? fast or pounding heartbeats; ?? jaundice (yellowing of the skin or eyes); ?? blurred vision or temporary vision loss (lasting from only a few minutes to several hours); ?? high levels of serotonin in the body--agitation, hallucinations, fever, fast heart rate, overactive reflexes, nausea, vomiting, diarrhea, loss of coordination, fainting. Common side effects may include: ?? diarrhea or constipation; ?? headache; ?? drowsiness; or ?? tired feeling. This is not a complete list of side effects and others may occur. Call your doctor for medical advice about side effects. You may report side effects to FDA at 7-025-IME-6616. What other drugs will affect ondansetron? Ondansetron can cause a serious heart problem, especially if you use certain medicines at the same time, including antibiotics, antidepressants, heart rhythm medicine, antipsychotic medicines, and medicines to treat cancer, malaria, HIV or AIDS. Tell your doctor about all medicines you use, and those you start or stop using during your treatment with ondansetron. Taking ondansetron while you are using certain other medicines can cause high levels of serotonin to build up in your body, a condition called 'serotonin syndrome,' which can be fatal. Tell your doctor if you also use: ?? medicine to treat depression; ?? medicine to treat a psychiatric disorder; ?? a narcotic (opioid) medication; or ?? medicine to prevent nausea and vomiting. This list is not complete and many other drugs can interact with ondansetron. This includes prescription and nldu-yzf-iudgyxf medicines, vitamins, and herbal products. Give a list of all your medicines to any healthcare provider who treats you. Where can I get more information? Your pharmacist can provide more information about ondansetron. Remember, keep this and all other medicines out of the reach of children, never share your medicines with others, and use this medication only for the indication prescribed. Every effort has been made to ensure that the information provided by [employer] is accurate, up-to-date, and complete, but no guarantee is made to that effect. Drug information contained herein may be time sensitive. [employer] information has been compiled for use by healthcare practitioners and consumers in the [place] and therefore [employer] does not warrant that uses outside of the [place] are appropriate, unless specifically indicated otherwise. [employer]'s drug information does not endorse drugs, diagnose patients or recommend therapy. [employer] drug information is an informational resource designed to assist licensed healthcare practitioners in caring for their patients and/or to serve consumers viewing this service as a supplement to, and not a substitute for, the expertise, skill, knowledge and judgment of healthcare practitioners. The absence of a warning for a given drug or drug combination in no way should be construed to indicate that the drug or drug combination is safe, effective or appropriate for any given patient. [employer] does not assume any responsibility for any aspect of healthcare administered with the aid of information [employer] provides. The information contained herein is not intended to cover all possible uses, directions, precautions, warnings, drug interactions, allergic reactions, or adverse effects. If you have questions about the drugs you are taking, check with your doctor, nurse or pharmacist. Copyright 2373-2479 [employer]. Version: 13.01. Revision Date: 08/28/2016. Emergency Awareness and Preventative Care STROKE is [...] Assistance with quitting is available by contacting 8-463-NTVANOW. This is a free resource providing counseling, support, and referral. Or you may contact your personal physician. National Suicide Prevention Lifeline: The National Suicide Prevention [...] This Visit (last charted value for your 11/14/2020 visit) Hematology 11/15/2020 3:32 AM WBC: 14.4 K/uL -- Normal range between ( 3.9 and 10.0 ) RBC: 4.22 Million/uL -- Normal range between ( 3.93 and 5.22 ) Hct: 40.4 % -- Normal range between ( 34.1 and 44.9 ) Hgb: 13.1 Gram/dL -- Normal range between ( 11.2 and 15.7 ) Platelet Count: 251 K/uL -- Normal range between ( 163 and 369 ) MCH: 31.0 pg -- Normal range between ( 25.6 and 32.2 ) MCHC: 32.4 Gram/dL -- Normal range between ( 32.3 and 36.5 ) MCV: 95.7 fL -- Normal range between ( 79.0 and 94.8 ) Slide Review: No Eos %: 0.0 % -- Normal range between ( 1.0 and 7.0 ) [place] #: 0.84 K/uL -- Normal range between ( 0.24 and 0.82 ) Eos #: 0.00 K/uL -- Normal range between ( 0.04 and 0.54 ) [place] %: 5.8 % -- Normal range between ( 4.7 and 12.5 ) Baso %: 0.1 % -- Normal range between ( 0.0 and 1.0 ) Baso #: 0.02 K/uL -- Normal range between ( 0.01 and 0.08 ) RDW: 14.1 % -- Normal range between ( 11.6 and 14.4 ) Neut %: 83.8 % -- Normal range between ( 34.0 and 71.0 ) Neut #: 12.05 K/uL -- Normal range between ( 1.56 and 6.13 ) Lymph %: 9.7 % -- Normal range between ( 19.3 and 53.0 ) Lymph #: 1.39 K/uL -- Normal range between ( 1.18 and 3.74 ) MPV: 11.1 fL -- Normal range between ( 9.4 and 12.4 ) IG#: 0 x10(3)/uL IG%: 1 % -- Normal range between ( 0 and 1 ) General Chemistry 11/15/2020 3:32 AM Creatinine Level: 1.12 mg/dL -- Normal range between ( 0.55 and 1.02 ) Sodium Level: 138 mmol/L -- Normal range between ( 136 and 146 ) Potassium Level: 4.8 mmol/L -- Normal range between ( 3.5 and 5.1 ) Chloride Level: 107 mmol/L -- Normal range between ( 102 and 112 ) Carbon Dioxide Level: 23 mmol/L -- Normal range between ( 21 and 32 ) Anion Gap: 13 -- Normal range between ( 9 and 20 ) Bun/Creatinine: 25.9 -- Normal range between ( 8.0 and 20.0 ) Calcium Level: 8.5 mg/dL -- Normal range between ( 8.5 and 10.1 ) eGFR : 59 mL/min/1.73m2 eGFR NonAfrican: 49 mL/min/1.73m2 Glucose Level: 107 mg/dL -- Normal range between ( 74 and 106 ) Blood Urea Nitrogen: 29 mg/dL -- Normal range between ( 7 and 22 ) Patient Name:PARRISH CEDENO I have received and understand this information and was given the opportunity to ask questions. Patient/Control Clerk Head Name: Patient/Control Clerk Head Signature: Relationship to Patient: Clinician/Hospital Control Clerk Head Signature: Date: Electronically signed by Rei, [facility] Conversion Medicaid Business Analyst Cerner at 2023 6:56 PM CDT documented in this encounter Plan of Treatment Upcoming Encounters Date Type Department Care Team (Late st Contact Info) Description 03/26/2026 1:30 PM EDT [facility] [address] [place] [address] Hammad Jack MD [address] [place] [address] [place] [address] documented as of this encounter Visit Diagnoses Not on filedocumented in this encounter Care Teams Die Filer Relationship Specialty Start Date End Date Judy Cantu MD [address] [place] [address] PCP - General General Surgery 12/23/22 04/03/24 Daaynna Bang APRN [facility] [address] [address] PCP - General Nurse Practitioner 04/04/24 documented as of this encounter
--- OUTSIDE RECORDS SUMMARY | 2025-10-14 15:01 | XMS_ITS | Encounter Summary ---
Author Organization [employer] ([place], [place], [place], [place], [place]) Address [address] [place] [address] Care Team Providers Care Mathematics Academic Chair Name Role Phone Emir Cantu MD Primary Care Provider [phone] Dayanna Bang APRN Primary Care Provider + [phone] Encounter Details Date Type Department Care Team (Late st Contact Info) Description 08/30/2020 Transcribed Document [facility] [place] [address] [place] [address] ProviderAnuj MD [address] [place] [id number] Social History Tobacco Use Types Packs/Day Years [...] Conversion Note - Anuj ProviderMD - 08/30/2020 1:00 PM CDT [facility] PreOp Summary Primary Physician: EMIR CANTU MD Finalized Date/Time: 08/30/20 12:02:50 Pt. Name: MARC ROSALINDMARIA TERESA Oneal.O.B./Sex: 1955 Female Med Rec #: [id number] Physician: EMIR CANTU MD Financial #: [id number] Pt. Type: E Room/Bed: EEN/6 Admit/Disch: 08/30/20 10:49:00 - Institution: [facility] PreOp Case Times Entry 1 In Preop 08/30/20 11:00:00 Ready for Holding n/a Room Patient Ready for 08/30/20 12:02:00 Surgery Patient Out of Preop 08/30/20 12:02:00 Patient Out of n/a Holding Room Finalized By: Meg Gomes, Rn Document Signatures Signed By: Meg Gomes Rn 08/30/20 12:02 Electronically signed by Tej Minaya Conversion Plastic Production Machine Setter Cerner at 2023 6:46 PM CDT documented in this encounter Plan of Treatment Upcoming Encounters Date Type Department Care Team (Late st Contact Info) Description 03/26/2026 1:30 PM EDT Office Visit [facility] Services [address] [place] [place] [address] Hammad Jack MD [address] [facility] [address] [place] [address] documented as of this encounter Visit Diagnoses Not on filedocumented in this encounter Care Teams Mathematics Academic Chair Relationship Specialty Start Date End Date Emir Cantu MD [address] [employer] [facility] [address] [place] [address] PCP - General General Surgery 12/23/22 04/03/24 Dayanna Bang, [place] [address] [address] PCP - General Nurse Practitioner 04/04/24 documented as of this encounter
--- OUTSIDE RECORDS SUMMARY | 2025-10-14 15:01 | XMS_ITS | Encounter Summary ---
Author Organization [employer] ([place], [place], [place], [place], [place]) Address [address] [place] [address] Care Team Providers Care Truck Assembler Name Role Phone Emir Cantu MD Primary Care Provider [phone] Dayanna Bang APRN Primary Care Provider + [phone] Encounter Details Date Type Department Care Team (Late st Contact Info) Description 08/30/2020 Transcribed Document [facility] [place] [facility] [place] [address] ProviderAnuj MD [address] [place] [id number] Social History Tobacco Use Types Packs/Day Years [...] - 08/30/2020 2:46 PM CDT [facility] PACU Summary Primary Physician: EMIR CANTU MD Finalized Date/Time: 08/30/20 15:23:05 Pt. Name: ROSALIND CEDENO.O.B./Sex: 1955 Female Med Rec #: [id number] Physician: EMIR CANTU MD Financial #: [id number] Pt. Type: E Room/Bed: [facility]/ Admit/Disch: 08/30/20 10:49:00 - Institution: [facility] PACU Case Times Entry 1 In PACU I 08/30/20 14:50:00 Ready for PACU 08/30/20 15:13:00 Discharge Discharge from PACU 08/30/20 15:13:00 I [facility] PACU Case Times Audit 08/30/20 15:23:04 Hydraulic Blocker: [id number] Modifier: [id number] <+> 1 Ready for PACU Discharge <+> 1 Discharge from PACU I Finalized By: Savi Gama, RN Document Signatures Signed By: Savi Gama, RN 08/30/20 15:23 documented in this encounter Plan of Treatment Upcoming Encounters Date Type Department Care Team (Late st Contact Info) Description 03/26/2026 1:30 PM EDT Office Visit [facility] [address] [facility] [facility] [address] [place] [address] Hammad Jack MD [address] [place] [id number] documented as of this encounter Visit Diagnoses Not on filedocumented in this encounter Care Teams Truck Assembler Relationship Specialty Start Date End Date Emir Cantu MD [address] [facility] [facility] [address] [place] [address] PCP - General General Surgery 12/23/22 04/03/24 Dayanna Bang, [place] [address] [address] PCP - General Nurse Practitioner 04/04/24 documented as of this encounter
--- OUTSIDE RECORDS SUMMARY | 2025-10-14 15:01 | XMS_ITS | Clinical Summary ---
Author Organization [employer] ([place], [place], [place], [place], [place]) Address [address] [place] [address] Care Team Providers Care Terminal Superintendent Name Role Phone Dayanna Bang APRN Primary Care Provider Allergies Active Allergy Reactions Criticality Noted Date Comments Ezetimibe 10/20/2022 Other reaction(s): Myalgia Patient had increased musculoskeletal pain within 10 days of starting medication that resolved within 5 days of discontinuation. Ezalizx-Kae-Djo Reductase Inhibitors 12/23/2022 Other reaction(s): Muscle weakness-general [...] Date Willi rded Speak language other than [place] Citizen at home Not on file 11/23/2023 Want [...] [facility] [address] [address] Hammad Jack MD [address] [facility] [address] [place] [address] Health Maintenance Due Date Last Done Comments CT Colonography 1955 Colonoscopy 1955 Colorectal Cancer Screening 1955 DXA SCAN 1955 FOBT/FIT 1955 Fit-DNA (Cologuard) 1955 Sigmoidoscopy 1955 Depression Screening (12+) 1966 Hepatitis C Screening 02/22/1972 DTAP/TDAP/TD VACCINES (1 - Tdap) 1973 Pneumococcal 50+ years (1 of 1 - PCV) 02/22/2004 Shingles Vaccine (Zoster) (1 of 2) 02/22/2004 Respiratory Syncytial Virus (RSV) Adult or (1 - Risk 60-74 years 1-dose series) 2014 Falls Risk Screening 11/08/2024 Medicare Initial AWV [id number] 11/08/2024 COVID-19 VACCINE ( - 2024- season) 2025 07/24/2021, 01/19/2021, 12/22/2020 Influenza Vaccine (#1) 2025 08/02/2023, 2021 Tobacco Cessation Counseling and Screening (12+) 04/03/2026 04/03/2025 Breast Cancer Screening 03/21/2027 03/21/2025, 03/09 Insurance [employer] MEDICARE PPO Care Teams Terminal Superintendent Relationship Specialty Start Date End Date Dayanna Bang APRN [address] [place] [address] PCP - General Nurse Practitioner 04/04/24
--- OUTSIDE RECORDS SUMMARY | 2025-10-14 15:01 | XMS_ITS | Encounter Summary ---
Author Organization [employer] ([place], [place], [place], [place], [place]) Address [address] [place] [address] Care Team Providers Care Checkout Operator Name Role Phone Emir Goddard MD Primary Care Provider [phone] Dayanna Bang APRN Primary Care Provider [phone] Encounter Details Date Type Department Care Team (Late st Contact Info) Description 08/30/2020 Transcribed Document [facility] Family Medicine [facility] [place] [address] ProviderAnuj MD [address] [place] [address] Social History Tobacco Use Types Packs/Day [...] Note - Anuj Dueñas MD - 08/30/2020 2:53 PM CDT Patient Education Materials Follows: Gastritis, Adult Gastritis is swelling (inflammation) of [...] these instructions at home: Medicines ??? Take ssst-cow-hymtlft and prescription medicines only as told by [...] alcohol: ? Limit your use to: ? 0?1 drink a day for women. ? 0?2 drinks a day for men. ? Be aware of how much alcohol is in your drink. In the [place] one drink equals one 12 oz bottle of beer (355 mL), one 5 oz glass of wine (148 mL), or one 1? oz glass of hard liquor (44 mL). [...] 04/12/2009 Document Revised: 03/14/2019 Document Reviewed: 03/14/2019 [employer] Patient Education ? 2020 [employer] Monitored Anesthesia Care, Care After These instructions [...] eating solid foods. General instructions ??? Take fjhb-lze-venzzaw and prescription medicines only as told by [...] 02/14/2017 Document Revised: 01/23/2019 Document Reviewed: 02/14/2017 Elsevier Patient Education ? 2020 [employer]. ESOPHAGOGASTRODUODENOSCOPY Care After Read the instructions outlined [...] call your doctor. HOME CARE INSTRUCTIONS: ACTIVITY: ?? You may resume your regular activity tomorrow, but move at a slower pace for the next 24 hours. ?? Take frequent rest periods for the next 24 hours. ?? Walking will help get rid of the air and reduce the bloated feeling in your belly (abdomen). ?? No driving for 24 hours because of the medication (sedation) used during the test. ?? You may shower. ?? Do not sign any important legal documents or operate any machinery for 24 hours (because of the sedation used during the test). NUTRITION: ?? Drink plenty of fluids. ?? You may resume your normal diet or as instructed by your doctor ?? Begin with a light meal and progress to your normal diet. Heavy or fried foods are harder to digest and may make you feel sick to your stomach (nauseated). ?? Avoid alcoholic beverages for 24 hours or as instructed. MEDICATIONS: ?? You may resume your normal medications unless your doctor tells you otherwise. WHAT TO EXPECT TODAY: ?? Some feelings of bloating in the abdomen. ?? Excessive burping today and passage of more gas than usual. ?? A sore throat can be normal. Use throat lozenges or gargle with warm salt water and drink plenty of fluids. FINDING OUT THE RESULTS OF YOUR TEST: ?? Not all test results are available during your visit. If you had biopsies or other tests done during your procedure, you can make an appointment with your doctor to get the results. Sometimes you may be instructed to call the doctor's office for your results. It is important for you to follow up on all of your test results. SEEK IMMEDIATE MEDICAL CARE IF: ?? You cannot eat or drink. ?? You have worsening throat or chest pain. ?? You have dizziness, lightheadedness, or you faint. ?? You have severe nausea or vomiting. ?? You have a fever greater than 101. ?? You have chills. ?? You have severe abdominal pain or discomfort that gets worse throughout the day. ?? You have black, tarry, or bloody stools. documented in this encounter Plan of Treatment Upcoming Encounters Date Type Department Care Team (Late st Contact Info) Description 03/26/2026 1:30 PM EDT Office Visit [facility] Bariatric Services [address] [place] [address] Hammad Jack MD [address] [place] [address] documented as of this encounter Visit Diagnoses Not on filedocumented in this encounter Care Teams Checkout Operator Relationship Specialty Start Date End Date Emir Goddard MD [address] [place] [address] PCP - General General Surgery 12/23/22 04/03/24 Dayanna Bang, PARISH [address] [id number] PCP - General Nurse Practitioner 04/04/24 documented as of this encounter
--- OUTSIDE RECORDS SUMMARY | 2025-10-14 15:01 | XMS_ITS | Clinical Summary ---
Author Organization [facility] Address [address] [place] [address] Care Team Providers Care Precision Dyer Name Role Phone MerrittKatherynDayanna PARISH Primary Care Provider Allergies Active Allergy Reactions Criticality Noted Date Comments Ezetimibe Myalgia 10/20/2022 Patient had increased musculoskeletal pain within 10 days of starting medication that resolved within 5 days of discontinuation. Statins Myalgia 04/08/2022 Sulfa Antibiotics Rash Low 04/08/2022 Medications Calcium Citrate 150 MG capsule Take by mouth. Active multivitamin with minerals tablet tablet Take 1 tablet by mouth Daily. Active Cyanocobalamin (B-12) 1000 MCG capsule Take by mouth. Active vitamin D3 125 MCG (5000 UT) capsule capsule Take 1 capsule by mouth Daily. Active Multiple Vitamins-Minerals (OCUVITE ADULT 50+ PO) Take by mouth. Active [place]-3 Fatty Acids (fish oil) 1000 MG capsule capsule Take by mouth Daily With Breakfast. Active fenofibrate (Tricor) 145 MG tablet Take 1 tablet by mouth Daily. 90 tablet 3 3 Active allopurinol (ZYLOPRIM) 300 MG tabletIndications :Idiopathic chronic gout of foot without tophus, unspecified laterality Take 1 tablet by mouth Daily. 90 tablet 1 4 Active omeprazole (priLOSEC) 20 MG capsuleIndication s:Gastroesophagea l reflux disease without esophagitis Take 1 capsule by mouth Daily. 90 capsule 1 4 Active spironolactone (ALDACTONE) 50 MG tabletIndications :Essential hypertension Take 1 tablet by mouth Daily. 90 tablet 1 4 Active Synthroid 125 MCG tabletIndications :Hypothyroidism, unspecified type Take 1 tablet by mouth Daily. 90 tablet 1 4 Active metoprolol succinate XL (TOPROL-XL) 50 MG 24 hr tabletIndications :Essential hypertension Take 1 tablet by mouth Daily. 90 tablet 1 4 Active verapamil SR (CALAN-SR) 240 MG CR tabletIndications :Essential hypertension Take 2 tablets by mouth Daily. 180 tablet 1 4 Active Active Problems Problem Noted Date Diagnosed Date Hand arthritis 10/20/2022 Assessment & Plan (10/20/2022 11:49 AM EST): Pain is poorly controlled. Start as needed low-dose meloxicam. Emphasized use of Tylenol. Voltaren gel may also be an option Essential hypertension 04/08/2022 Assessment & Plan (10/20/2022 11:48 AM EST): Hypertension is improving with treatment. Continue current treatment regimen. Blood pressure will be reassessed at the next regular appointment. Assessment & Plan (04/08/2022 9:03 AM EDT): Hypertension is improving with treatment. Continue current treatment regimen. Blood pressure will be reassessed at the next regular appointment. Hypercholesterolemia 04/08/2022 Hypothyroidism 04/08/2022 Assessment & Plan (10/20/2022 11:49 AM EST): Patient in need of surveillance TSH. Assessment & Plan (04/08/2022 9:03 AM EDT): Check TSH and refill synthroid Gastroesophageal reflux disease without esophagi tis 04/08/2022 Class 3 severe obesity due t o excess calories with serious comorbidity and body mass index (BMI) of 45.0 to 49.9 in adult 04/08/2022 Assessment & Plan (04/08/2022 8:52 AM EDT): Patient's (Body mass index is 45.37 kg/m .) indicates that they are morbidly obese (BMI > 40 or > 35 with obesity - related health condition) with health conditions that include hypertension, dyslipidemias and GERD . Weight is unchanged. BMI is is above average; BMI management plan is completed. We discussed portion control and increasing exercise. Degenerative disc disease, lumbar 04/08/2022 Spondylolisthesis of lumbar region 04/08/2022 Assessment & Plan (04/08/2022 9:03 AM EDT): If desires referral before next appt. call and we will arrange imaging(xray followed by MRI) S/P gastric sleeve procedure 04/08/2022 Immunizations Immunization Administration Dates Next Due COVID-19 (MODERNA) 1st,2nd,3 rd Dose Monovalent 07/24/2021,01/19/2021,12/22/2020 Flu Vaccine Quad PF >36MO 08/20/2021 Fluad Quad 65+ 08/01/2022 Fluzone (or Fluarix & Flulav al for VFC) >6mos 08/20/2021 Fluzone High-Dose 65+yrs 08/02/2023 Family History Medical History Relation Name Comments Arthritis Father Cancer Maternal Grandfather pancrea tic & colon Cancer Maternal Grandmother stomach Arthritis Mother Hyperlipidemia Mother Hypertension Mother Osteoporosis Mother Thyroid disease Mother Breast cancer Neg Hx Ovarian cancer Neg Hx Relation Name Status Comments Father Maternal Grandfather Maternal Grandmother Mother Social History Tobacco Use Types Packs/Day Years Used Date Smoking Tobacco: Never Smokeless Tobacco: Never Tobacco Cessation:Counseling Given: Not Answered Alcohol Use Standard Drinks/Week Comments Never 0 (1 standard drink = 0.6 oz pur e alcohol) PHQ-2 Answer Date Recorded Retired PHQ-9: Brief Depression Severity Measure Score 0 04/29/2023 PHQ-2 Answer Date Recorded Retired PHQ-9: Brief Depression Severity Measure Score 0 04/29/2023 Comments No Sex and Gender Information Value Date Recorded Sex Assigned at Not on file Legal Sex Female 11:01 AM EDT Gender Identity Not on file Sexual Orientation Not on file Last Filed Vital Signs Vital Sign Reading Time Taken Comments Blood Pressure 132/88 10/26/2023 11:03 AM EST Pulse 58 10/26/2023 11:03 AM EST Temperature 36.3 C (97.3 F) 10/26/2023 11:03 AM EST Respiratory Rate 18 10/26/2023 11:03 AM EST Oxygen Saturation 95% 10/26/2023 11:03 AM EST Inhaled Oxygen Concentration - - Weight 141 kg (310 lb 3.2 oz) 10/26/2023 11:03 A M EST Height 172.7 cm (5' 8 ) 10/26/2023 11:03 AM EST Body Mass Index 47.17 10/26/2023 11:03 AM EST Plan of Treatment Upcoming Encounters Date Type Department Care Team (Late st Contact Info) Description 11/09/2025 1:00 PM EST Appointment [facility] [place] [address] [address] Health Maintenance Due Date Last Done Comments DXA SCAN 1955 TDAP/TD VACCINES (1 - Tdap) 1973 COLOGUARD 1999 COLON CANCER SCREENING 5 YEA R SIGMOIDOSCOPY 1999 COLONOSCOPY 1999 COLORECTAL CANCER SCREENING 1999 CT COLONOGRAPHY 1999 FECAL OCCULT BLOOD TEST 1999 FIT Testing (1 year) 1999 Pneumococcal Vaccine 50+ (1 of 1 - PCV) 02/22/2004 ZOSTER VACCINE (1 of 2) 02/22/2004 HEPATITIS C SCREENING 04/08/2022 ANNUAL WELLNESS VISIT 04/29/2024 04/29/2023, 023 LIPID PANEL 10/26/2024 10/26/2023, 06/0 11/2021, 02/19/2022, Additional history exists INFLUENZA VACCINE 06/08/2025 09/04/2024, , 08/01/2022, Additional history exists COVID-19 Vaccine (2024-2 6 season) 2025 07/24/2021, 01/19/2021, 12/22/2020 MAMMOGRAM 05/08/2027 05/08/2025, 0502/2025, 09/18/2024, Additional history exists Procedures Procedure Name Priority Date/Time Associated Diagnosis Comments MAMMO DIAGNOSTIC DIGITAL TOMOSYNTHESIS LEFT W CAD Routine 05/08/2025 3:49 PM EDT Abnormal mammogram LIPID PANEL Routine 10/26/2023 11:59 AM EST Hypercholesterolem ia from Last 3 Months or Most Recently Relevant to Health Maintenance Results * Mammo Diagnostic Digital Tomosynthesis Left With CAD (05/08/2025 3:49 PM EDT) Anatomical Region Laterality Modality Breast Left Mammography 05/08/2025 4:19 PM EDT Impressions 05/08/2025 4:22 PM EDT 1. Left breast: Prebiopsy diagnostic imaging to assess for interval expected evolution/resolution of presumed fat necrosis demonstrates resolution of the mammographic finding and interval decrease in size of the sonographic correlate in the 8:00 left breast 10 cm from the nipple. Therefore, ultrasound-guided core needle biopsy was not performed. Recommendation at this time is for continued short-term follow-up diagnostic bilateral mammogram for complex parenchymal pattern for which the patient has been a short-term follow-up. Please see original diagnostic imaging dated 03/21/2025 for details. 3. Today's findings and recommendations were discussed with the patient at the time of the examination by myself and the breast care team. OVERALL ASSESSMENT: BI-RADS Category 3: Probably benign. Recommend short-term follow-up diagnostic bilateral mammogram in 6 months. Physicians Order Diagnostic bilateral mammogram in 6 months. Diagnosis: Short term follow-up, probably benign findings. 05/08/2025 4:22 PM by Hafsa Verdugo MD on Narrative 05/08/2025 4:22 PM EDT EXAM: MAMMO DIAGNOSTIC DIGITAL TOMOSYNTHESIS LEFT W CAD, Limited left breast ultrasound- DATE:05/08/2025 4:19 PM INDICATION: 70-year-old female who presents for ultrasound-guided left breast biopsy of questionable fat necrosis in the 8:00 region of the left breast. Repeat diagnostic imaging was performed prior to procedure to assess for interval expected evolution/resolution. COMPARISON: Comparison is made to prior study dated 03/21/2025. TECHNIQUE: 2D/3D CC and MLO views of the left breast were obtained. Previously identified asymmetry in the lower inner quadrant in the left breast at middle depth FINDINGS: Left breast: There are scattered areas of fibroglandular density. Previously identified asymmetry in the lower inner quadrant of the left breast at middle depth is no longer identified on today's exam. The nodular parenchymal pattern for which the patient has been in short-term follow-up is otherwise stable. Targeted sonographic imaging of the left breast was performed by the technologist and myself. In the 8:00 left breast 10 cm from the nipple there is a subtle nearly isoechoic mass quite superficial measuring up to 2 mm. This is smaller compared to the original finding which measured up to 5 mm. Dayanna Bang APRN IMG MAMMOGRAPHY ORDERABLES F inal Result * (ABNORMAL) Lipid Panel (10/26/2023 11:59 AM EST) Total Cholesterol 270(H) 100 - 199 mg/dL [facility] Triglycerides 360(H) 0 - 149 mg/dL [facility] HDL Cholesterol 43 >39 mg/dL [facility] VLDL Cholesterol Matti 68(H) 5 - 40 mg/dL [facility] LDL Chol Calc (NIH) 159(H) 0 - 99 mg/dL [facility] Blood 10/26/2023 11:5 9 AM EST 10/26/2023 Narrative [facility] ([facility]) - 10/27/2023 7:10 AM EST Performed at: [address] [id number] Wool Hanker: Bentley Goddard PhD, Phone: [phone] Patient Fasting: Y Ion Cm MD LAB BLOOD ORDERABLES Fin al Result [facility] ([facility]) [address] [place] [id number], [facility] [address] [place] [address], from Last 3 Months or Most Recently Relevant to Health Maintenance Insurance [facility] MEDICARE ADVANTAGE PPO Care Teams Precision Dyer Relationship Specialty Start Date End Date Dayanna Bang APRN [address] [address] [place] [address] PCP - General Internal Medicine 09/18/24
--- OUTSIDE RECORDS SUMMARY | 2025-10-14 15:01 | XMS_ITS | Encounter Summary ---
Author Organization [employer] ([place], [place], [place], [place], [place]) Address [address] [place] [address] Care Team Providers Care Outboard Motor Assembler Name Role Phone Emir Cantu MD Primary Care Provider [phone] Dayanna Bang APRN Primary Care Provider [phone] Encounter Details Date Type Department Care Team (Late st Contact Info) Description 11/14/2020 Transcribed Document [facility] [place] [facility] [place] [address] ProviderAnuj MD [address] [place] [address] Social History Tobacco Use Types Packs/Day [...] Conversion Note - Anuj ProviderMD - 11/14/2020 7:30 AM CASKET TRIMMER [facility] Main OR PreOp Summary Primary Physician: EMIR CANTU MD Finalized Date/Time: 11/14/20 07:41:06 Pt. Name: KING ROSALINDMARIA TERESA Oneal.O.B./Sex: 1955 Female Med Rec #: [id number] Physician: EMIR CANTU MD Financial #: [id number] Pt. Type: I Room/Bed: [facility]/3 Admit/Disch: 11/14/20 03:46:00 - Institution: [facility] PreOp Case Times Entry 1 In Preop 11/14/20 05:35:00 Ready for Holding n/a Room Patient Ready for 11/14/20 07:30:00 Surgery Patient Out of Preop 11/14/20 07:27:00 Patient Out of n/a Holding Room Last Modified By: EFREN CHADWICK RN 11/14/20 07:41:01 Jayde PreOp Case Times Audit 11/14/20 07:41:01 Acid Condenser: [id number] Modifier: [id number] <+> 1 Patient Out of Preop Finalized By: EFREN CHADWICK, RN Document Signatures Signed By: EFREN CHADWICK RN 11/14/20 07:41 Electronically signed by Rei [facility] Conversion Regenerator Operator Cerner at 2023 6:40 PM CDT documented in this encounter Plan of Treatment Upcoming Encounters Date Type Department Care Team (Late st Contact Info) Description 03/26/2026 1:30 PM EDT Office Visit [facility] Bariatric Services [address] [place] [address] Hammad Jack MD [address] [facility] [address] [place] [address] documented as of this encounter Visit Diagnoses Not on filedocumented in this encounter Care Teams Outboard Motor Assembler Relationship Specialty Start Date End Date Emir Cantu MD [address] [employer] [facility] [address] [place] [address] PCP - General General Surgery 12/23/22 04/03/24 Dayanna Bang, PARISH [address] [place] [address] PCP - General Nurse Practitioner 04/04/24 documented as of this encounter
== END 2025-10-12 23:59 | disposition home or self-care (01) ==
LOC: LAB.DROPOF 10-14 14:59
PROVIDERS: PCP Nurse Practitioner Family; Visit Provider Nurse Practitioner Family
DX: E55.9 Vitamin D deficiency, unspecified (principal); I10 Essential (primary) hypertension; M79.7 Fibromyalgia; E03.9 Hypothyroidism, unspecified
CPT/HCPCS: 80053; 80061; 82306; 82607; 83735; 84436; 84439; 84443; 84481; 85025